=== PATIENT | female | born 1980 | race Caucasian/White ===

== ENCOUNTER 2021-10-15 10:19 | Emergency (ER) | payer SELFPAY ==
[~2021-10-15] VITALS: Ht 172.7 cm; Wt 71.2 kg
--- NOTE | 2021-10-15 10:50 | ED Cardiac General ---
History of Present Illness General Chief Complaint: Cardiac/General Problems Stated Complaint: HIGH BP 158/122 Nursing Triage Note: C/O HTN AT HOME. HAVING PALPATIONS C/P LIGHT HEADED Source: patient Exam Limitations: no limitations (REAGAN ARMENDARIZ STUDENT) History of Present Illness Date Seen by Provider: Oct 15, 2021 Time Seen by Provider: 10:40 Initial Comments Mrs. Patricia is a 40yo female with PMH HTN who is on 3 medications for blood pressure presents to ED today due to heart palpitations. She states that this started about 3 days ago. She feels like she is having palpations more often than she is not. She has never had problems like this before. She was told to come to the ER because she was also having some lightheadedness and she was concerned since this was going on for 3 days. She occasionally also gets sharp pains in the center of her chest for a few moments. She takes her blood pressure medication daily and usually her blood pressure is within range. She has not found anything that makes the pain better. Does not notice worsening of any of the symptoms with exertion, eating, or laying down. She is a 1/2 PPD smoker. No significant family hx. She does use some marijuana. NKDA. She has never had a cardiac workup. PCP is Dr. Andre Rivers. She denies any other symptoms (REAGAN ARMENDARIZ) Allergies and Home Medications Allergies Coded Allergies: No Known Drug Allergies (Verified , 01/07/09) Patient Home Medication List Home Medication List Reviewed: Yes (MARTHA CUNNINGHAM) Review of Systems Review of Systems Constitutional: No chills, No fever EENTM: No Blurred Vision, No Double Vision Respiratory: Denies Cough, Denies Shortness of Air Cardiovascular: Chest Pain (Intermittent); Denies Edema; Lightheadedness, Palpitations Gastrointestinal: Denies Abdominal Pain, Denies Constipated, Denies Diarrhea, Denies Nausea, Denies Vomiting Genitourinary: Denies Hematuria; Other (no dysuria) Musculoskeletal: No joint pain, No joint swelling; other (no leg pain or swelling) Skin: No lesions, No rash Psychiatric/Neurological: Denies Numbness, Denies Tingling (REAGAN ARMENDARIZ STUDENT) Past Korpond-Nlnnow-Gcosxl Hx Past Medical History Reproductive Disorders: No (KALA,REAGAN MED STUDENT) Physical Exam Vital Signs Vital Signs - First Documented 10/15/21 10/15/21 10:23 12:07 Temp 36.3 Pulse 109 Resp 18 B/P (MAP) 174/123 (140) Pulse Ox 100 O2 Delivery Room Air (MARTHA CUNNINGHAM) Vital Signs Capillary Refill : Less Than 3 Seconds (REAGAN ARMENDARIZ MED STUDENT) Height, Weight, BMI Height: '" Weight: lbs. oz. kg; 23.00 BMI Method: General Appearance: No Apparent Distress, WD/WN HEENT: PERRL/EOMI, Pharynx Normal, Moist Mucous Membranes Respiratory: Chest Non Tender, Lungs Clear, Normal Breath Sounds Cardiovascular: No Edema, No Murmur, Normal Peripheral Pulses, Tachycardia Gastrointestinal: Normal Bowel Sounds, Non Tender, Soft Extremity: Non Tender, No Calf Tenderness, No Pedal Edema Neurologic/Psychiatric: Alert, Oriented x3, No Motor/Sensory Deficits Skin: Normal Color, Warm/Dry (REAGAN ARMENDARIZ MED STUDENT) Progress/Results/Core Measures Results/Orders Lab Results Laboratory Tests Test 10/15/21 10:35 Range/Units White Blood Count 5.5 4.3-11.0 10^3/uL Red Blood Count 4.70 3.80-5.11 10^6/uL Hemoglobin 15.2 11.5-16.0 g/dL Hematocrit 43 35-52 % Mean Corpuscular Volume 92 80-99 fL Mean Corpuscular Hemoglobin 32 25-34 pg Mean Corpuscular Hemoglobin Concent 35 32-36 g/dL Red Cell Distribution Width 12.2 10.0-14.5 % Platelet Count 181 130-400 10^3/uL Mean Platelet Volume 10.3 9.0-12.2 fL Immature Granulocyte % (Auto) 1 % Neutrophils (%) (Auto) 59 42-75 % Lymphocytes (%) (Auto) 26 12-44 % Monocytes (%) (Auto) 11 0-12 % Eosinophils (%) (Auto) 3 0-10 % Basophils (%) (Auto) 1 0-10 % Neutrophils # (Auto) 3.2 1.8-7.8 10^3/uL Lymphocytes # (Auto) 1.4 1.0-4.0 10^3/uL Monocytes # (Auto) 0.6 0.0-1.0 10^3/uL Eosinophils # (Auto) 0.2 0.0-0.3 10^3/uL Basophils # (Auto) 0.0 0.0-0.1 10^3/uL Immature Granulocyte # (Auto) 0.0 0.0-0.1 10^3/uL Prothrombin Time 12.2 12.2-14.7 SEC INR Comment 0.9 0.8-1.4 Activated Partial Thromboplast Time 24 24-35 SEC Sodium Level 141 135-145 MMOL/L Potassium Level 3.0 L 3.6-5.0 MMOL/L Chloride Level 99 98-107 MMOL/L Carbon Dioxide Level 27 21-32 MMOL/L Anion Gap 15 H 5-14 MMOL/L Blood Urea Nitrogen 13 7-18 MG/DL Creatinine 0.69 0.60-1.30 MG/DL Estimat Glomerular Filtration Rate 113 BUN/Creatinine Ratio 19 Glucose Level 151 H 70-105 MG/DL Calcium Level 9.6 8.5-10.1 MG/DL Corrected Calcium 9.4 8.5-10.1 MG/DL Magnesium Level 1.5 L 1.6-2.4 MG/DL Total Bilirubin 0.7 0.1-1.0 MG/DL Aspartate Amino Transf (AST/SGOT) 138 H 5-34 U/L Alanine Aminotransferase (ALT/SGPT) 114 H 0-55 U/L Alkaline Phosphatase 85 40-136 U/L Myoglobin 59.2 10.0-92.0 NG/ML Troponin I < 0.028 <0.028 NG/ML B-Type Natriuretic Peptide 23.8 <100.0 PG/ML Total Protein 7.9 6.4-8.2 GM/DL Albumin 4.3 3.2-4.5 GM/DL Amylase Level 39 25-125 U/L Lipase 40 8-78 U/L (MARTHA CUNNINGHAM) My Orders Orders - MARTHA CUNNINGHAM Cbc With Automated Diff (10/15/21 11:04) Magnesium (10/15/21 11:04) Chest 1 View, Ap/Pa Only (10/15/21 11:04) Ekg Tracing (10/15/21 11:04) Comprehensive Metabolic Panel (10/15/21 11:04) Myoglobin Serum (10/15/21 11:04) Protime With Inr (10/15/21 11:04) Partial Thromboplastin Time (10/15/21 11:04) O2 (10/15/21 11:04) Monitor-Rhythm Ecg Trace Only (10/15/21 11:04) Ed Iv/Invasive Line Start (10/15/21 11:04) Lipase (10/15/21 11:04) Amylase (10/15/21 11:04) Bnp Albert (10/15/21 11:04) Troponin I Faulk (10/15/21 11:04) Aspirin Chewable Tablet (Baby Aspirin Ch (10/15/21 11:30) Magnesium Oxide Tablet (Mag Ox Tablet) (10/15/21 11:45) Potassium Chloride (Tablet) (K Dur Table (10/15/21 11:45) Potassium Chloride (Tablet) (K Dur Table (10/15/21 11:48) Magnesium Oxide Tablet (Mag Ox Tablet) (10/15/21 11:48) (MARTHA CUNNINGHAM) Medications Given in ED Current Medications Medications Dose Ordered Sig/Gage Route Start Time Stop Time Status Last Admin Dose Admin Aspirin 324 mg ONCE ONCE PO 10/15/21 11:30 10/15/21 11:31 DC 10/15/21 11:32 324 MG Magnesium Oxide 400 mg ONCE ONCE PO 10/15/21 11:45 10/15/21 11:49 DC 10/15/21 11:49 400 MG Potassium Chloride 40 meq ONCE ONCE PO 10/15/21 11:45 10/15/21 11:49 DC 10/15/21 11:51 40 MEQ (MARTHA CUNNINGHAM) Vital Signs/I&O 10/15/21 10/15/21 10:23 12:07 Temp 36.3 Pulse 109 87 Resp 18 18 B/P (MAP) 174/123 (140) 122/102 Pulse Ox 100 96 O2 Delivery Room Air (MARTHA CUNNINGHAM) Blood Pressure Mean: 140 Comment Sinus rhythm with probable left atrial enlargement, 97 bpm, QRS duration 96 MS, QTc 460 MS. (MARTHA CUNNINGHAM) Departure Communication (PCP) Patient is a 40-year-old female who presents ED with heart palpitations and sharp chest pain with the palpitations. Appears to be intermittent. No worsening pain with exertion. She does have a history of smoking, family cardiac history history of hypertension. Patient does have cardiac risk factors so cardiac work-up was ordered. Initial EKG showed sinus rhythm without evidence of ST depression or elevation. No T wave inversion noted. She was given full aspirin here in the ED. Chest x-ray was unremarkable. No recent travels or surgeries. She is not tachycardic or hypoxic suggesting PE. She denies control. Patient lab work was otherwise unremarkable besides hypokalemia 3.0 and hypomagnesium 1.5. She was given oral supplementation. She is currently on hydrochlorothiazide and amlodipine. Likely secondary to the hydrochlorothiazide. She denies excessive caffeine use, denies any drug use currently. History of drug use 9 years ago. She denies of any fever or URI symptoms. No evidence suggesting pericarditis, myocarditis. She has no chest wall tenderness. She states the pain is secondary to the heart palpitation. She denies history of cardiac work-up. Due to the reassuring lab work and atypical chest pain with palpitations recommend outpatient follow-up. Discussed further evaluation and management of her electrolytes. This would be reasonable candidate for Holter monitor or further cardiac evaluation outpatient Brandyn. This pain progress strongly recommend returning back to ED for further evaluation. Patient is currently chest pain-free. Patient with a heart score of 2. (MARTHA CUNNINGHAM) Impression Primary Impression: Heart palpitations Additional Impressions: Hypertension Hypokalemia Hypomagnesemia Disposition: 01 HOME, SELF-CARE Condition: Stable Departure-Patient Inst. Decision time for Depature: 11:57 (MARTHA CUNNINGHAM) Referrals: [facility] (PCP/Family) Primary Care Physician Patient Instructions: Palpitations Add. Discharge Instructions: Need to follow-up with [facility] for further evaluation of blood pressure. Recommend lab work recheck magnesium and potassium. Further evaluation may require Holter monitor for the heart palpitations. If any worsening symptoms to return back to ED for further evaluation. All discharge instructions reviewed with patient and/or family. Voiced understanding. REAGAN ARMENDARIZ MED STUDENT Oct 15, 2021 10:50 MARTHA CUNNINGHAM Oct 15, 2021 11:06
[2021-10-15 11:10] LABS: BASOPHILS % (AUTO) 1 % (0-10); EOSINOPHILS # (AUTO) 0.2 10^3/uL (0.0-0.3); EOSINOPHILS % (AUTO) 3 % (0-10); HEMATOCRIT 43 % (35-52); HEMOGLOBIN 15.2 g/dL (11.5-16.0); LYMPHOCYTES # (AUTO) 1.4 10^3/uL (1.0-4.0); LYMPHOCYTES % (AUTO) 26 % (12-44); MEAN CORPUSCULAR HEMOGLOBIN 32 pg (25-34); MEAN CORPUSCULAR HGB CONC 35 g/dL (32-36); MEAN CORPUSCULAR VOLUME 92 fL (80-99); MEAN PLATELET VOLUME 10.3 fL (9.0-12.2); MONOCYTES # (AUTO) 0.6 10^3/uL (0.0-1.0); MONOCYTES % (AUTO) 11 % (0-12); NEUTROPHILS # (AUTO) 3.2 10^3/uL (1.8-7.8); NEUTROPHILS % (AUTO) 59 % (42-75); PLATELET COUNT 181 10^3/uL (130-400); WHITE BLOOD COUNT 5.5 10^3/uL (4.3-11.0)
[2021-10-15 11:17] LABS: ALBUMIN 4.3 GM/DL (3.2-4.5)
[2021-10-15 11:19] LABS: CALCIUM 9.6 MG/DL (8.5-10.1)
[2021-10-15 11:20] LABS: INR 0.9 (0.8-1.4); PROTHROMBIN TIME PATIENT 12.2 SEC (12.2-14.7); TOTAL PROTEIN 7.9 GM/DL (6.4-8.2)
[2021-10-15 11:22] LABS: BILIRUBIN,TOTAL 0.7 MG/DL (0.1-1.0)
[2021-10-15 11:23] LABS: CREATININE SERUM 0.69 MG/DL (0.60-1.30)
[2021-10-15 11:27] LABS: MAGNESIUM 1.5 MG/DL (1.6-2.4)
[2021-10-15] MEDS ORDERED: ASPIRIN 81 MG CHEW (CHILDREN'S ASA) PO ONE (11:30)
[2021-10-15] MEDS ORDERED: MAGNESIUM OXIDE (MAG-OX)400 MG TAB PO ONE (11:45)
[2021-10-15] MEDS ORDERED: KCL 20 MEQ TAB (K-DUR) PO ONE ×2 (11:45→11:48)
[2021-10-15] MEDS ORDERED: MAGNESIUM OXIDE (MAG-OX)400 MG TAB ONE (11:48)
--- NOTE | 2021-10-15 11:48 | Diagnostic Imaging Report ---
CLINICAL INDICATION: Patient with hypertension and palpitations. Patient complains of lightheadedness. EXAM: Portable chest x-ray upright view. COMPARISON: Chest x-ray dated 07/23/2014. FINDINGS: Lungs/pleura: Lungs are clear. There is no pneumothorax. There is no pleural effusion. Mediastinum: Unremarkable. Pulmonary vasculature: Unremarkable. Heart: Unremarkable. Bones/extrathoracic soft tissue: Unremarkable. IMPRESSION: There is no radiographic evidence of acute cardiopulmonary process. Dictated by: Dictated on workstation # [id number]
[2021-10-15 12:07] VITALS: BP 122/102
== END 2021-10-15 12:07 | disposition home or self-care (01) ==
LOC: EDUNIT# 10:19 → ER 10:21
DX: R00.2 Palpitations (principal); I10 Essential (primary) hypertension; E87.6 Hypokalemia; E83.42 Hypomagnesemia; F17.210 Nicotine dependence, cigarettes, uncomplicated
CPT/HCPCS: 36415; 71045; 80053; 82150; 83690; 83735; 83874; 83880; 84484; 85025; 85610; 85730; 93041

== ENCOUNTER 2022-12-23 03:42 | Inpatient (IN) | payer SELFPAY ==
[~2022-12-23] VITALS: Ht 172.7 cm; Wt 65.8 kg
--- NOTE | 2022-12-23 03:57 | ED Psychosocial ---
General Chief Complaint: Detox Stated Complaint: WANTS DETOX/SEIZURE Source: patient Exam Limitations: no limitations (GAMALIEL GIBBS MD) History of Present Illness Date Seen by Provider: Dec 23, 2022 Time Seen by Provider: 03:57 Initial Comments Patient is a 42-year-old female who presents to the emergency room with a chief complaint of concern for 2 seizures in the last 24 hours. She states she has been drinking 1 to 2 pints of vodka daily for the last 6 to 7 months. She states after the seizures in the last 24 hours she got scared and wanted to come in to have "medical detox". She states she had a fall last night sustaining some abrasions to her left hand. She states she thinks she has been hallucinating and found herself wandering around in her front yard last night. She was laying in her daughter's bed this morning and her daughter woke her up saying that she was having a seizure. Patient states that she has been confused and "out of it". She denies any other injuries other than the abrasions to the left hand. She is a smoker. She takes medication for high blood pressure. Feels anxious currently. Has "shakes". She states she has had nausea and vomiting for the last 4 days and cannot even hardly keep down alcohol. No recent illnesses. Only prior surgery was a hysterectomy. Timing/Duration: just prior to arrival Severity: moderate Associated Symptoms: anxiety, impaired concentration (GAMALIEL GIBBS MD) Allergies and Home Medications Allergies Coded Allergies: No Known Drug Allergies (Verified , 01/07/09) Patient Home Medication List Home Medication List Reviewed: Yes (GAMALIEL GIBBS MD) Amlodipine Besylate (Amlodipine Besylate) 10 Mg Tablet, 10 MG PO DAILY, (Reported) Entered as Reported by: BRADLEY MYERS on 12/23/22 100 Last Action: Reviewed Buprenorphine HCl/Naloxone HCl (Buprenorphin-Naloxon 8-2 mg Sl) 8 Mg-2 Mg Ta b.subl, 1 EACH SL TID, (Reported) Entered as Reported by: BRADLEY MYERS on 12/23/22 100 Last Action: Reviewed Hydrochlorothiazide (Hydrochlorothiazide) 25 Mg Tablet, 25 MG PO DAILY, (Reported) Entered as Reported by: BRADLEY MYERS on 12/23/221002 Last Action: Reviewed Metoprolol Succinate (Metoprolol Succinate) 25 Mg Tab.er.24h, 25 MG PO DAILY, (Reported) Entered as Reported by: BRADLEY MYERS on 12/23/221002 Last Action: Reviewed Review of Systems Constitutional: see HPI EENTM: no symptoms reported Respiratory: no symptoms reported Cardiovascular: no symptoms reported Gastrointestinal: nausea, vomiting Genitourinary: no symptoms reported Musculoskeletal: no symptoms reported Skin: other (abrasions left hand) Psychiatric/Neurological: Anxiety, Emotional Problems, Seizure (GAMALIEL GIBBS MD) All Other Systems Reviewed Negative Unless Noted: Yes (GAMALIEL GIBBS MD) Past Tnfubnv-Tvwufl-Twuwmy Hx Immunizations Up To Date First/Initial COVID19 Vaccinat: AUG 2021 (GAMALIEL GBIBS MD) Past Medical History Reproductive Disorders: No (GAMALIEL GIBBS MD) Physical Exam Vital Signs - First Documented 12/23/22 03:49 Temp 36.3 Pulse 127 Resp 18 B/P (MAP) 93/79 (84) Pulse Ox 98 O2 Delivery Room Air Capillary Refill : Height, Weight, BMI Height: '" Weight: lbs. oz. kg; 23.00 BMI Method: General Appearance: mild distress (anxious) HEENT: PERRL/EOMI, scleral icterus (R), scleral icterus (L) Neck: full range of motion Respiratory: lungs clear, normal breath sounds, no respiratory distress, no accessory muscle use Cardiovascular: regular rate, rhythm, tachycardia Gastrointestinal: normal bowel sounds, non tender, soft Extremities: normal range of motion, normal inspection, no pedal edema, no calf tenderness, normal capillary refill Neurologic/Psychiatric: no motor/sensory deficits, alert, oriented x 3, other (anxious; resting tremor) Appearance/Memory: appropriate appearance, appropriate insight, no memory impairment Behavior/Eye Contact: cooperative, good eye contact, normal speech Thoughts/Hallucinations: normal thought pattern, no apparent hallucination Skin: normal color, warm/dry, other (2 superficial abrasions dorsum of left hand) (GAMALIEL GIBBS MD) Procedures/Interventions Reason for Intubation: interference with medical care; AMS Date of ETT Placement: Dec 23, 2022 Time of ETT Placement: 05:48 Intubation Method: orotracheal Tube Size: 7 Medications: Etomidate, Rocuronium Positive End Tide CO2: Yes Breath Sounds after Intubation: bilateral-equal Intubation Complications: no complications Post Intubation Xray: Yes (GAMALIEL GIBBS MD) Progress/Results/Core Measures Results/Orders Lab Results Laboratory Tests Test 12/23/22 04:30 12/23/22 07:10 Range/Units White Blood Count 3.6 L 4.3-11.0 10^3/uL Red Blood Count 3.85 3.80-5.11 10^6/uL Hemoglobin 13.9 11.5-16.0 g/dL Hematocrit 37 35-52 % Mean Corpuscular Volume 97 80-99 fL Mean Corpuscular Hemoglobin 36 H 25-34 pg Mean Corpuscular Hemoglobin Concent 37 H 32-36 g/dL Red Cell Distribution Width 12.5 10.0-14.5 % Platelet Count 73 L 130-400 10^3/uL Mean Platelet Volume 11.5 9.0-12.2 fL Immature Granulocyte % (Auto) 1 % Neutrophils (%) (Auto) 74 42-75 % Lymphocytes (%) (Auto) 17 12-44 % Monocytes (%) (Auto) 8 0-12 % Eosinophils (%) (Auto) 0 0-10 % Basophils (%) (Auto) 0 0-10 % Neutrophils # (Auto) 2.7 1.8-7.8 10^3/uL Lymphocytes # (Auto) 0.6 L 1.0-4.0 10^3/uL Monocytes # (Auto) 0.3 0.0-1.0 10^3/uL Eosinophils # (Auto) 0.0 0.0-0.3 10^3/uL Basophils # (Auto) 0.0 0.0-0.1 10^3/uL Immature Granulocyte # (Auto) 0.0 0.0-0.1 10^3/uL Percent Immature Platelet Fraction 11.8 H 0.0-7.6 % Sodium Level 128 L 135-145 MMOL/L Potassium Level 2.0 *L 3.6-5.0 MMOL/L Chloride Level 83 L 98-107 MMOL/L Carbon Dioxide Level 27 21-32 MMOL/L Anion Gap 18 H 5-14 MMOL/L Blood Urea Nitrogen 8 7-18 MG/DL Creatinine 0.75 0.60-1.30 MG/DL Estimat Glomerular Filtration Rate 103 BUN/Creatinine Ratio 11 Glucose Level 133 H 70-105 MG/DL Calcium Level 9.2 8.5-10.1 MG/DL Corrected Calcium 9.2 8.5-10.1 MG/DL Phosphorus Level 1.9 L 2.3-4.7 MG/DL Magnesium Level 0.7 *L 1.6-2.4 MG/DL Total Bilirubin 3.1 H 0.1-1.0 MG/DL Aspartate Amino Transf (AST/SGOT) 444 H 5-34 U/L Alanine Aminotransferase (ALT/SGPT) 164 H 0-55 U/L Alkaline Phosphatase 128 40-136 U/L Total Creatine Kinase 577 H 29-168 U/L Total Protein 7.8 6.4-8.2 GM/DL Albumin 4.0 3.2-4.5 GM/DL Triglycerides Level 166 H <150 MG/DL Salicylates Level < 5.0 L 5.0-20.0 MG/DL Acetaminophen Level < 10 L 10-30 UG/ML Serum Alcohol < 10 <10 MG/DL My Orders Orders - GAMALIEL GIBBS MD Ua Culture If Indicated (12/23/22 04:09) Cbc With Automated Diff (12/23/22 04:09) Comprehensive Metabolic Panel (12/23/22 04:09) Alcohol (12/23/22 04:09) Drug Screen Stat (Urine) (12/23/22 04:09) Acetaminophen (12/23/22 04:09) Salicylate (12/23/22 04:09) Ekg Tracing (12/23/22 04:09) Ed Iv/Invasive Line Start (12/23/22 04:09) Monitor-Rhythm Ecg Trace Only (12/23/22 04:09) Ed Iv/Invasive Line Start (12/23/22 04:09) Lactated Ringers (Lr 1000 Ml Iv Solution (12/23/22 04:15) Ondansetron Injection (Zofran Injectio (12/23/22 04:15) Lorazepam Injection (Ativan Injection) (12/23/22 04:09) Lactated Ringers (Lr 1000 Ml Iv Solution (12/23/22 04:40) Lorazepam Injection (Ativan Injection) (12/23/22 04:40) Ondansetron Injection (Zofran Injectio (12/23/22 04:41) Creatine Kinase (12/23/22 05:09) Potassium Cl 10meq/50ml Ivpb (Kcl 10 Meq (12/23/22 05:15) Magnesium (12/23/22 05:09) Phosphorus (12/23/22 05:09) Ct Head Wo (12/23/22 05:10) Propofol Drip (Icu) (Diprivan Drip (Icu) (12/23/22 05:15) Triglycerides (12/23/22 05:10) Chest 1 View, Ap/Pa Only (12/23/22 05:16) Lorazepam Injection (Ativan Injection) (12/23/22 05:25) Lorazepam Injection (Ativan Injection) (12/23/22 05:28) Magnesium 1 Gm/100 Ml Ivpb (Magnesium [place] (12/23/22 07:00) Midazolam Injection (Versed Injection) (12/23/22 07:15) Dexmedetomidine 250 Ml Drip (Precedex Dr (12/23/22 07:30) Dexmedetomidine Injection (Precedex Inje (12/23/22 07:20) Medications Given in ED Current Medications Medications Dose Ordered Sig/Gage Route Start Time Stop Time Status Last Admin Dose Admin Magnesium Sulfate/ Dextrose 100 ml @ 100 mls/hr ONCE ONCE IV 12/23/22 07:00 12/23/22 07:59 12/23/22 07:25 100 MLS/HR Vital Signs/I&O 12/23/22 12/23/22 03:49 03:49 Temp 36.3 Pulse 127 Resp 18 B/P (MAP) 93/79 (84) Pulse Ox 98 O2 Delivery Room Air Room Air (GAMALIEL GIBBS MD) Progress Progress Note : Time: 05:12 Progress Note Ludy, RN called for "help" at approx 0445 as she was going in to start fluids and give ativan IV. Patient very disoriented, had pulled her IV and attempting to get up and walk around the room, hitting at the wall. Ataxic and stumbling in the room. Refusing to sit. Became increasingly aggressive and agitated, cursing at staff, attempting to hit and bite staff. This is a 180deg change from when I first evaluated her. Ludy RN did not witness any seizure-like activity when walking into the room. Multiple attempts to orient patient failed. Patient was ultimately placed in leather restraints for her safety and staff safety. Once she was in irma she seemed to "come around" and was more oriented, answering questions. Was profusely diaphoretic. During this lab called to notify of critical potassium of 2.0. Discussions with staff regarding need for treatment and patient ongoing safety. Will electively intubate to facilitate care. Patient's family member updated (daughter). Labs reviewed - Mag very low at 0.7. not anemic. WBC slightly low at 3. LFT's and total bili elevated. aspirin, acetaminophen and etoh neg. UDS pending. Post intubation CXR pending. EKG sinus tach. CT Head pending. Suspect etoh withdrawal delirium/DT's (GAMALIEL GIBBS MD) Progress Note : Time: 09:08 Progress Note Patient was being supervised after admission was arranged by Dr. Gibbs. Nursing staff alerted me that patient was becoming agitated and moving about despite sedation with propofol and Precedex. Since she is suspected of having severe alcohol withdrawal, Ativan 2 mg IV was ordered. This seemed to improve her agitation and movements. Patient is being transferred to the ICU. (STEPHY MARTINEZ MD) Initial ECG Impression Date: Dec 23, 2022 Initial ECG Impression Time: 04:22 Initial ECG Rate: 100 Initial ECG Rhythm: S.Tach Initial ECG Intervals: Normal Initial ECG Impression: Nonspecific Changes (GAMALIEL GIBBS MD) Critical Care Note Critical Care Start Time: 05:00 (GAMALIEL GIBBS MD) Departure Communication (Admissions) Time/Spoke to Admitting Phy: 05:[address] Kali appiah for [facility] Hospitalist; will do que'd orders Time/Spoke to Consulting Phy: 07:26 Discussed with eICU (GAMALIEL GIBBS MD) Impression Primary Impression: Hypokalemia Additional Impressions: Hypomagnesemia Delirium tremens Disposition: ADMITTED INPATIENT Condition: Critical Admissions Decision to Admit Reason: Admit from ER (General) Decision to Admit/Date: Dec 23, 2022 Time/Decision to Admit Time: 05:17 (GAMALIEL GIBBS MD) Departure-Patient Inst. Referrals: [facility] (PCP/Family) Primary Care Physician Copy Copies To 1: PARKER OLEARY KATHRYN M MD Dec 23, 2022 03:57 STEPHY MARTINEZ MD Dec 23, 2022 09:10
[2022-12-23] MEDS ORDERED: LORazepam INJ 2 MG/ML (ATIVAN) VIAL IVP STA ×2 (04:09→05:25)
[2022-12-23] MEDS ORDERED: LORazepam INJ 2 MG/ML (ATIVAN) VIAL ONE ×3 (04:40→08:20)
[2022-12-23] MEDS ORDERED: LACTATED RINGERS 1,000 ML IV ONE (04:40)
[2022-12-23 04:41] LABS: BASOPHILS % (AUTO) 0 % (0-10); HEMOGLOBIN 13.9 g/dL (11.5-16.0); LYMPHOCYTES # (AUTO) 0.6 10^3/uL (1.0-4.0); PLATELET COUNT 73 10^3/uL (130-400)
[2022-12-23] MEDS ORDERED: ONDANSETRON 4 MG/2 ML (SDV) Z0FRAN ONE (04:41)
[2022-12-23 04:42] LABS: EOSINOPHILS % (AUTO) 0 % (0-10); HEMATOCRIT 37 % (35-52); LYMPHOCYTES % (AUTO) 17 % (12-44); MEAN CORPUSCULAR HEMOGLOBIN 36 pg (25-34); MEAN CORPUSCULAR HGB CONC 37 g/dL (32-36); MEAN CORPUSCULAR VOLUME 97 fL (80-99); MEAN PLATELET VOLUME 11.5 fL (9.0-12.2); MONOCYTES # (AUTO) 0.3 10^3/uL (0.0-1.0); MONOCYTES % (AUTO) 8 % (0-12); NEUTROPHILS # (AUTO) 2.7 10^3/uL (1.8-7.8); NEUTROPHILS % (AUTO) 74 % (42-75); WHITE BLOOD COUNT 3.6 10^3/uL (4.3-11.0)
[2022-12-23] MEDS: ONDANSETRON 4 MG/2 ML (SDV) Z0FRAN IVP ONE ×2 (04:46→07:26)
[2022-12-23] MEDS: LACTATED RINGERS 1,000 ML IV SCH ×2 (04:46→05:47)
[2022-12-23 04:49] LABS: CHLORIDE 83 MMOL/L (98-107); SODIUM 128 MMOL/L (135-145)
[2022-12-23 04:51] LABS: CALCIUM 9.2 MG/DL (8.5-10.1)
[2022-12-23 04:52] LABS: GLUCOSE 133 MG/DL (70-105); TOTAL PROTEIN 7.8 GM/DL (6.4-8.2)
[2022-12-23 04:53] LABS: CARBON DIOXIDE 27 MMOL/L (21-32)
[2022-12-23 04:54] LABS: BILIRUBIN,TOTAL 3.1 MG/DL (0.1-1.0)
[2022-12-23 04:56] LABS: ALKALINE PHOSPHATASE 128 U/L (40-136); CREATININE SERUM 0.75 MG/DL (0.60-1.30); GFR ESTIMATED 103
[2022-12-23 04:57] LABS: BUN/CREATININE RATIO 11
[2022-12-23 04:59] LABS: ALANINE AMINOTRANSFERASE 164 U/L (0-55); SALICYLATE < 5.0 MG/DL (5.0-20.0)
[2022-12-23] MEDS ORDERED: LORazepam INJ 2 MG/ML (ATIVAN) VIAL IM ONE (04:59)
[2022-12-23 05:01] LABS: ACETAMINOPHEN < 10 UG/ML (10-30)
[2022-12-23] MEDS ORDERED: PROPOFOL DRIP (ICU) 100 ML IV SCH ×2 (05:15→09:30)
[2022-12-23 05:29] LABS: PHOSPHORUS 1.9 MG/DL (2.3-4.7)
[2022-12-23 05:34] LABS: MAGNESIUM 0.7 MG/DL (1.6-2.4)
[2022-12-23] MEDS: POTASSIUM CL 10MEQ/50ML IVPB 50 ML IV SCH ×11 (06:41→23:06)
--- NOTE | 2022-12-23 06:45 | Diagnostic Imaging Report ---
PROCEDURE: CT head without contrast. TECHNIQUE: Multiple contiguous axial images were obtained through the brain without the use of intravenous contrast. Auto Exposure Controls were utilized during the CT exam to meet ALARA standards for radiation dose reduction. INDICATION: Acute altered mental status and ataxia. CT HEAD: CT images of the head were obtained. FINDINGS: Ventricles and sulci are within normal limits for size. There is no intracranial hemorrhage identified. There is no abnormal mass effect or shift of midline structures. There is mild mural thickening within the maxillary sinuses with small amount of fluid on the left. There is opacification of the right sphenoid sinus. IMPRESSION: No acute intracranial abnormality is detected although there is mild bilateral maxillary sinus and extensive right sphenoid sinus disease. Dictated by: Dictated on workstation # [id number]
--- NOTE | 2022-12-23 06:48 | Diagnostic Imaging Report ---
INDICATION: Respiratory failure Single AP view of the chest is obtained with comparison made to study of 10/15/2021. There has been placement of enteric tube tip at the level of the thoracic inlet. Nasogastric tube passes below the diaphragm. Heart size and pulmonary vascularity are within normal limits. Lungs appear clear and well expanded. There is no pneumothorax. IMPRESSION: No evidence of acute abnormality or complication post intubation. Dictated by: Dictated on workstation # [id number]
[2022-12-23] MEDS ORDERED: MAGNESIUM 1 GM/100 ML IVPB 100 ML IV ONE (07:00)
[2022-12-23 07:13] LABS: BILIRUBIN,URINE NEGATIVE (NEGATIVE); CLARITY,URINE CLOUDY; COLOR,URINE YELLOW; GLUCOSE, URINE (UA) TRACE (NEGATIVE); KETONES,URINE NEGATIVE (NEGATIVE); LEUKOCYTE ESTERASE ,URINE NEGATIVE (NEGATIVE); NITRITE,URINE NEGATIVE (NEGATIVE); PH,URINE 7.5 (5-9); PROTEIN,URINE 1+ (NEGATIVE)
[2022-12-23] MEDS ORDERED: MIDAZOLAM 5 MG/5 ML (VERSED) VIAL IVP ONE ×2 (07:15→09:00)
[2022-12-23 07:38] LABS: BACTERIA,URINE NEGATIVE /HPF; RBC,URINE 0-2 /HPF; SQUAMOUS EPITHELIAL CELL,UR RARE /HPF
[2022-12-23] MEDS: DexMEDEtomidine 250 ML DRIP 250 ML IV SCH (07:40)
[2022-12-23 08:07] LABS: AMPHETAMINE SCREEN, URINE NEGATIVE (NEGATIVE); BARBITURATE SCREEN URINE NEGATIVE (NEGATIVE); BENZODIAZEPINES SCREEN URINE NEGATIVE (NEGATIVE); CANNABINOID SCREEN, URINE NEGATIVE (NEGATIVE); COCAINE SCREEN URINE NEGATIVE (NEGATIVE); METHADONE STAT NEGATIVE (NEGATIVE); OPIATE SCREEN URINE NEGATIVE (NEGATIVE); OXYCODONE STAT NEGATIVE (NEGATIVE); PROPOXYPHENE STAT NEGATIVE (NEGATIVE); TRICYCLIC ANTIDEPRESSANTS SCRE NEGATIVE (NEGATIVE)
[2022-12-23] MEDS ORDERED: LORazepam INJ 2 MG/ML (ATIVAN) VIAL IVP ONE (08:30)
--- NOTE | 2022-12-23 09:26 | History & Physical ---
HPI History of Present Illness: History per ER physician, patient already intubated and sedated at time of my exam and no family at bedside. 42 yo female presented to ER with complaint of alcohol withdrawal with seizure at home, reportedly she was sleeping and her daughter woke her up and told her she had a seizure. On arrival to the ER she was alert and oriented and calm, but she became extremely combative and agitated and ultimately was intubated for protection. Source: RN/MD Exam Limitations: clinical condition Date seen by provider: Dec 23, 2022 Time Seen by Provider: 09:20 Attending Physician [place]/[facility] PCP Admitting Physician: Bradley Bass MD Attending Physician: Bradley Bass MD Consult Date of Admission Dec 23, 2022 at 09:00 Home Medications Home Medications Reviewed patient Home Medication Reconciliation performed by pharmacy medication reconciliations nail technician teacher and/or nursing. Patients Allergies have been reviewed. Allergies Coded Allergies: No Known Drug Allergies (Verified , 01/07/09) [id number] Hx Patient Social History Smoking Status: Current Everyday Smoker Alcohol Use?: Yes Tobacco type used: Cigarettes Immunizations Up To Date Tetanus Booster (TDap): Less than 5yrs (12/08/2021) Influenza Vaccine Up-to-Date: No; Not Current (2018) First/Initial COVID19 Vaccinat: 07/07/2021 Second COVID19 Vaccination Darion: none Past Medical History PMHx: HTN Opioid use disorder Alcohol use disorder Hep C treated in 2014 and viral load undetectable 05/2018 SurgHx: Hysterectomy Family Medical History Other Significan Family Hx: Unable to obtain Review of Systems ([facility]) Constitutional: other (unable to obtain) Reviewed Test Results Reviewed Test Results Lab Laboratory Tests Test 12/23/22 04:30 12/23/22 07:10 Range/Units White Blood Count 3.6 L 4.3-11.0 10^3/uL Red Blood Count 3.85 3.80-5.11 10^6/uL Hemoglobin 13.9 11.5-16.0 g/dL Hematocrit 37 35-52 % Mean Corpuscular Volume 97 80-99 fL Mean Corpuscular Hemoglobin 36 H 25-34 pg Mean Corpuscular Hemoglobin Concent 37 H 32-36 g/dL Red Cell Distribution Width 12.5 10.0-14.5 % Platelet Count 73 L 130-400 10^3/uL Mean Platelet Volume 11.5 9.0-12.2 fL Immature Granulocyte % (Auto) 1 % Neutrophils (%) (Auto) 74 42-75 % Lymphocytes (%) (Auto) 17 12-44 % Monocytes (%) (Auto) 8 0-12 % Eosinophils (%) (Auto) 0 0-10 % Basophils (%) (Auto) 0 0-10 % Neutrophils # (Auto) 2.7 1.8-7.8 10^3/uL Lymphocytes # (Auto) 0.6 L 1.0-4.0 10^3/uL Monocytes # (Auto) 0.3 0.0-1.0 10^3/uL Eosinophils # (Auto) 0.0 0.0-0.3 10^3/uL Basophils # (Auto) 0.0 0.0-0.1 10^3/uL Immature Granulocyte # (Auto) 0.0 0.0-0.1 10^3/uL Percent Immature Platelet Fraction 11.8 H 0.0-7.6 % Sodium Level 128 L 135-145 MMOL/L Potassium Level 2.0 *L 3.6-5.0 MMOL/L Chloride Level 83 L 98-107 MMOL/L Carbon Dioxide Level 27 21-32 MMOL/L Anion Gap 18 H 5-14 MMOL/L Blood Urea Nitrogen 8 7-18 MG/DL Creatinine 0.75 0.60-1.30 MG/DL Estimat Glomerular Filtration Rate 103 BUN/Creatinine Ratio 11 Glucose Level 133 H 70-105 MG/DL Calcium Level 9.2 8.5-10.1 MG/DL Corrected Calcium 9.2 8.5-10.1 MG/DL Phosphorus Level 1.9 L 2.3-4.7 MG/DL Magnesium Level 0.7 *L 1.6-2.4 MG/DL Total Bilirubin 3.1 H 0.1-1.0 MG/DL Aspartate Amino Transf (AST/SGOT) 444 H 5-34 U/L Alanine Aminotransferase (ALT/SGPT) 164 H 0-55 U/L Alkaline Phosphatase 128 40-136 U/L Total Creatine Kinase 577 H 29-168 U/L Total Protein 7.8 6.4-8.2 GM/DL Albumin 4.0 3.2-4.5 GM/DL Triglycerides Level 166 H <150 MG/DL Salicylates Level < 5.0 L 5.0-20.0 MG/DL Acetaminophen Level < 10 L 10-30 UG/ML Serum Alcohol < 10 <10 MG/DL Urine Color YELLOW Urine Clarity CLOUDY Urine pH 7.5 5-9 Urine Specific [place] 1.010 L 1.016-1.022 Urine Protein 1+ H NEGATIVE Urine Glucose (UA) TRACE H NEGATIVE Urine Ketones NEGATIVE NEGATIVE Urine Nitrite NEGATIVE NEGATIVE Urine Bilirubin NEGATIVE NEGATIVE Urine Urobilinogen >=8.0 < = 1.0 MG/DL Urine Leukocyte Esterase NEGATIVE NEGATIVE Urine RBC (Auto) 3+ H NEGATIVE Urine RBC 0-2 /HPF Urine WBC NONE /HPF Urine Squamous Epithelial Cells RARE /HPF Urine Crystals NONE /LPF Urine Bacteria NEGATIVE /HPF Urine Casts NONE /LPF Urine Mucus NEGATIVE /LPF Urine Culture Indicated NO Urine Opiates Screen NEGATIVE NEGATIVE Urine Oxycodone Screen NEGATIVE NEGATIVE Urine Methadone Screen NEGATIVE NEGATIVE Urine Propoxyphene Screen NEGATIVE NEGATIVE Urine Barbiturates Screen NEGATIVE NEGATIVE Ur Tricyclic Antidepressants Screen NEGATIVE NEGATIVE Urine Phencyclidine Screen NEGATIVE NEGATIVE Urine Amphetamines Screen NEGATIVE NEGATIVE Urine Methamphetamines Screen NEGATIVE NEGATIVE Urine Benzodiazepines Screen NEGATIVE NEGATIVE Urine Cocaine Screen NEGATIVE NEGATIVE Urine Cannabinoids Screen NEGATIVE NEGATIVE Radiology CT head 12/23/22: IMPRESSION: No acute intracranial abnormality is detected although there is mild bilateral maxillary sinus and extensive right sphenoid sinus disease. CXR 12/23/22: IMPRESSION: No evidence of acute abnormality or complication post intubation. Physical Exam-([facility]) Physical Exam Vital Signs VS - Last 72 Hours, by Label 12/23/22 12/23/22 12/23/22 12/23/22 03:49 03:49 05:00 05:15 Temp 36.3 Pulse 127 Resp 18 20 20 B/P (MAP) 93/79 (84) Pulse Ox 98 O2 Delivery Room Air Room Air 12/23/22 12/23/22 12/23/22 05:30 05:45 07:40 Pulse 89 Resp 18 16 B/P (MAP) 97/60 Capillary Refill : Less Than 3 Seconds General Appearance: other (intubated, sedated) Respiratory: lungs clear, normal breath sounds Cardiovascular: regular rate, rhythm, no murmur Peripheral Pulses: 2+ Dorsalis Pedis (R), 2+ Left Dors-Pedis (L) Gastrointestinal: normal bowel sounds, soft Extremities: no pedal edema Skin: normal color, warm/dry Assessment/Plan Assessment/Plan Admission Status: Inpatient Order (span 2 midnights) Reason for Inpatient Admission: Severe alcohol withdrawal requiring intubation (1) Delirium tremens Status: Acute Assessment & Plan: CT head without acute findings. Intubated, sedated on dexmedetomidine, alcohol withdrawal protocol with CIWA and IV lorazepam. (2) Elevated liver enzymes Status: Chronic Assessment & Plan: Chart review shows LFTs minimally elevated (AST/ALT in the 40s) 10/2021, so significantly above previous baseline. Consider acute alcoholic hepatitis. Check PT/INR, PTT and hepatitis panel as well as liver ultrasound with doppler to eval for other causes. (3) Alcohol withdrawal delirium Status: Acute (4) Hypokalemia Status: Acute Assessment & Plan: Marked, replacing with 60 mEq initially, recheck after and if near normal, will use protocol replacement. (5) Hypomagnesemia Status: Acute Assessment & Plan: Replaced per ER, recheck. (6) Hypophosphatemia Status: Acute Assessment & Plan: Replace and recheck. (7) Thrombocytopenia Status: Acute Assessment & Plan: Last check at clinic 10/2021 CBC was normal. Suspect due to alcohol use/liver failure. Monitor closely. (8) Leukopenia Status: Acute Assessment & Plan: Previously normal a year ago. Suspect due to liver disease, monitor. (9) Alcohol use disorder Status: Chronic (10) Opioid use disorder Status: Chronic Assessment & Plan: Per clinic chart, on Suboxone prescribed by Dr. Godoy, however, unable to confirm if still taking, was last seen at [facility] October 2021. (11) Hypertension Status: Chronic Assessment & Plan: Currently borderline hypotensive after intubation, hold home medications, monitor. (12) Bipolar disorder Status: Chronic (13) History of hepatitis C Status: Chronic Assessment & Plan: Per clinic records, treated in 2014 with good response, negative viral PCR in 2018. Check acute hepatitis panel given acute hepatitis, but Hep C antibody anticipated to be positive, if remainder of acute testing negative, check Hep C PCR. (14) DVT prophylaxis Status: Acute Assessment & Plan: Enoxaparin- monitor closely with low platelets BRADLEY BASS MD Dec 23, 2022 09:26
[2022-12-23] MEDS ORDERED: ONDANSETRON 4 MG/2 ML (SDV) Z0FRAN IV PRN (09:30)
[2022-12-23] MEDS ORDERED: LORazepam INJ 2 MG/ML (ATIVAN) VIAL IM/IV PRN (09:30)
[2022-12-23] MEDS ORDERED: NS IV 500 ML 500 ML IV PRN (09:30)
[2022-12-23] MEDS ORDERED: 1/2 NS IV SOLUTION 1,000 ML IV PRN (09:30)
[2022-12-23] MEDS: ENOXAPARIN 40 MG/0.4 ML (LOVENOX) SYR SC SCH (09:49)
[2022-12-23] MEDS: LORazepam INJ 2 MG/ML (ATIVAN) VIAL IV PRN ×8 (09:52→21:48)
[2022-12-23] MEDS ORDERED: LACTATED RINGERS 1,000 ML IV SCH (10:00)
[2022-12-23] MEDS ORDERED: POTASSIUM PHOSPHATE INJ 30 MM in NS (IVPB) 250 ML IV ONE ×2 (10:00→19:00)
[2022-12-23] MEDS ORDERED: HYDR25TA4 PO (10:03)
[2022-12-23] MEDS ORDERED: AMLO-251 PO (10:03)
[2022-12-23] MEDS ORDERED: BUPR1TAB45 SL (10:03)
[2022-12-23] MEDS ORDERED: MTP25TSR PO (10:03)
--- NOTE | 2022-12-23 10:40 | Tele-ICU Progress Note ---
Subjective Date Seen by a Provider: Dec 23, 2022 Time Seen by a Provider: 10:08 Subjective/Events-last exam (Tele-ICU Physician , consultation as per request of PCP Service provided via interactive audio and video telecommunications E-CARE system to a patient admitted to ICU bed in [facility]. Available chart/ vitals / labs / Images reviewed H&P is from ER notes Patient's information available about PMH, Shx, Fhx allergy reviewed inEMR. ROS as per chart and RN report Afebrile, Vital signs stable Respiratory - AC/VC 20/450/60/5 I/O = pos Drips: Propofol, precedex, LR Pressors- none Hospital course: 42 y/o F with no significant PMHx who presented to ED with c/o heavy alcohol use concerned about possible seizure at home. In ER noted to have progressively worsening agitation and was combative. Ultimately required sedation with propofol and precedex and as a result intubated for airway prot ection. Acute respiratory failure 2/2 AMS requiring airway protection -Intubated and sedated. PRVC 400/16/40/5 -Will cont to wean vent as tolerated. Alcohol withdrawal: -Intubated for severe agitation -Will check baseline ammonia. Unclear if patient has underlying liver disease -Will switch propofol to fentanyl/versed given elevated TG -CIWA scale Hypokalemia: -KCL ordered -Recheck K after infusion Transaminitis: -F/u RUQ, no known diagnosis of liver disease Lines : periph , (Central Line Necessity Reviewed) Antony: + Nutrition: NPO VTE Prophylaxis: sally 1`30 bid Stress Ulcer Prophylaxis: Protonix Plans in collaboration with bedside consultants and IM MDs. Discussed with RN to reach out if any questions or concerns A total of 30 minutes of critical care time was devoted to this patient today, required to treat and/or prevent further deterioration of critical care condition ( as above ) I am remotely monitoring this patient from another state. I am unable to do the bedside exam, and history/physical and pertinent information is taken from other notes in the computer and bedside staff. Sepsis Event Evaluation Height, Weight, BMI Height: '" Weight: lbs. oz. kg; 21.00 BMI Method: Exam Exam Vital Signs Date Time Temp Pulse Resp B/P (MAP) Pulse Ox O2 Delivery O2 Flow Rate FiO2 12/23/22 09:51 77 83/58 12/23/22 09:30 77 20 83/58 (66) 100 Mechanical Ventilator 60.00 12/23/22 09:15 84 18 108/86 (93) 100 Mechanical Ventilator 60.00 12/23/22 09:09 84 12/23/22 09:00 87 111/83 (92) Mechanical Ventilator 60.00 12/23/22 08:50 36.3 98 20 118/109 100 Mechanical Ventilator 80.00 12/23/22 07:40 89 97/60 12/23/22 05:45 16 12/23/22 05:30 18 12/23/22 05:15 20 12/23/22 05:00 20 12/23/22 03:49 36.3 127 18 93/79 (84) 98 Room Air 12/23/22 03:49 Room Air Height & Weight Height: '" Weight: lbs. oz. kg; 21.00 BMI Method: General Appearance: No No Apparent Distress, No WD/WN, No Anxious, No Chronically ill, No Cachetic, No Mild Distress, No Moderate Distress, No Obese, No Severe Distress, No Thin, No Other HEENT: No PERRL/EOMI, No TMs Normal, No Normal ENT Inspection, No Pharynx Normal, No Moist Mucous Membranes, No Pale Conjunctivae (L), No Pale Conjunctivae (R), No Pharyngeal Erythema, No Photophobia, No Scleral Icterus (L ), No Scleral Icterus (R), No TM Abnormal (L), No TM Abnormal (R), No Tonsillar Exudate, No Tonsillar Enlargement, No Other Neck: No Full Range of Motion, No Normal Inspection, No Non Tender, No Supple, No Carotid Bruit, No JVD, No Limited Range of Motion, No Lymphadenopathy (L), No Lymphadenopathy (R), No Tender Lateral, No Tender Midline, No Thyromegaly, No Other Respiratory: No Chest Non Tender, No Lungs Clear, No Normal Breath Sounds, No No Accessory Muscle Use, No No Respiratory Distress, No Accessory Muscle Use, No Crackles, No Decreased Breath Sounds, No Expiration, No Inspiration, No Pleural Rub, No Rales, No Respiratory Distress, No Rhonci, No Stridor, No Wheezing, No Other Cardiovascular: No Regular Rate, Rhythm, No No Edema, No No Gallop, No No JVD, No No Murmur, No Normal Peripheral Pulses, No Bradycardia, No Diastolic Murmur, No Systolic Murmur, No Extra Beats, No Friction Rub, No Gallop/S3, No Gallop/S4, No Irregularly Irregular, No JVD, No Tachycardia, No Other Capillary Refill: Less Than 3 Seconds Peripheral Pulses: 2+ Dorsalis Pedis (R), 2+ Left Dors-Pedis (L) Gastrointestinal: normal bowel sounds; No non tender; soft; No no organomegaly, No no pulsatile mass, No abnormal bowel sounds, No distended, No guarding, No rebound, No tenderness, No hernia, No mass, No hepatomegaly, No spleenomegaly, No other Results Lab Laboratory Tests 12/23/22 04:30 Assessment/Plan Assessment/Plan . COLIN FRAGA MD Dec 23, 2022 10:40
[2022-12-23 10:42] LABS: ABG BASE EXCESS 9.8 MMOL/L (-2.5-2.5); ABG OXYGEN SATURATION 97 % (94-100); ABG PCO2 40 MMHG (35-45); ABG PH 7.53 (7.37-7.43); ABG PO2 76 MMHG (79-93); ABG TCO2 34.5 MMOL/L (21.0-31.0)
[2022-12-23 10:43] LABS: INSPIRED O2 60%; VENTILATOR YES
[2022-12-23] MEDS ORDERED: MIDAZOLAM 2 MG/2 ML (VERSED) VIAL IM ONE (11:00)
[2022-12-23 11:05] LABS: PROTHROMBIN TIME PATIENT 13.6 SEC (12.2-14.7)
[2022-12-23] MEDS: fentaNYL DRIP PRE-MIX 250 ML IV SCH ×3 (12:29→23:31)
[2022-12-23] MEDS: MIDAZOLAM DRIP PRE-MIX 100 ML IV SCH ×2 (12:33→22:33)
--- NOTE | 2022-12-23 12:52 | Diagnostic Imaging Report ---
PROCEDURE: US Hepatic (Liver). TECHNIQUE: Multiple real-time grayscale images were obtained over the right upper quadrant in various projections. INDICATION: Hepatitis C, elevated liver enzyme. COMPARISON: None available. FINDINGS: Pancreas is normal where visualized. The liver has mild diffuse increased echogenicity and smooth contours. No focal hepatic lesion. The liver is enlarged measuring 20 cm in length. Main portal vein is patent with normal directional flow and peak systolic velocities of 13 cm/s. Gallbladder is normally filled without stones or sludge. No pericholecystic fluid or gallbladder wall thickening. Right kidney measures 11 cm in length and is without hydronephrosis. No ascites in the right upper quadrant. IMPRESSION: 1. Hepatomegaly with diffuse steatosis. 2. No sonographic features of cirrhosis. Dictated by: Dictated on workstation # [id number]
[2022-12-23] MEDS: THIAMINE INJECTION 100 MG, FOLIC ACID INJECTION 1 MG, MAGNESIUM SULFATE 2 GM, VITAMIN M... IV SCH ×5 (13:56)
[2022-12-23] MEDS: D5 1/2 NS 1000 ML IV SOLUTION 1,000 ML IV PRN ×3 (13:58→14:01)
[2022-12-23] MEDS: D5 1/2 NS W/KCL 20 MEQ/L 1,000 ML IV SCH ×2 (14:02→21:44)
[2022-12-23] MEDS ORDERED: MIDAZOLAM 5 MG/5 ML (VERSED) VIAL INJ ONE (14:21)
[2022-12-23] MEDS ORDERED: ETOMIDATE IV SOLN 20 MG/10 ML VIAL IV ONE (14:21)
[2022-12-23] MEDS ORDERED: ROCURONIUM 50 MG/5 ML (ZEMURON) VIAL IV ONE (14:21)
[2022-12-23 14:28] VITALS: BP 101/77
[2022-12-23 17:05] LABS: CHLORIDE 93 MMOL/L (98-107); SODIUM 131 MMOL/L (135-145)
[2022-12-23 17:06] LABS: CALCIUM 8.3 MG/DL (8.5-10.1)
[2022-12-23 17:07] LABS: GLUCOSE 164 MG/DL (70-105)
[2022-12-23 17:08] LABS: CARBON DIOXIDE 27 MMOL/L (21-32)
[2022-12-23 17:11] LABS: BUN/CREATININE RATIO 9; CREATININE SERUM 0.65 MG/DL (0.60-1.30); GFR ESTIMATED 113
[2022-12-23 17:13] LABS: MAGNESIUM 1.6 MG/DL (1.6-2.4)
[2022-12-23 17:16] LABS: PHOSPHORUS < 0.7 MG/DL (2.3-4.7); POTASSIUM 2.3 MMOL/L (3.6-5.0)
[2022-12-23 18:52] VITALS: BP_DIAS 77
[2022-12-23 21:43] LABS: HEPATITIS C ANTIBODY C Reactive (Non-Reactive)
[2022-12-23 22:07] VITALS: BP 100/66
[2022-12-24] MEDS: POTASSIUM CL 10MEQ/50ML IVPB 50 ML IV SCH ×8 (00:08→13:14)
[2022-12-24] MEDS: D5 1/2 NS W/KCL 20 MEQ/L 1,000 ML IV SCH ×2 (01:24→04:31)
[2022-12-24 02:04] VITALS: BP 120/87
[2022-12-24] MEDS: DexMEDEtomidine 250 ML DRIP 250 ML IV SCH ×3 (02:54→23:31)
[2022-12-24] MEDS: fentaNYL DRIP PRE-MIX 250 ML IV SCH ×4 (04:12→20:09)
[2022-12-24 05:25] LABS: EOSINOPHILS % (AUTO) 0 % (0-10); MEAN CORPUSCULAR VOLUME 103 fL (80-99); PLATELET COUNT 60 10^3/uL (130-400)
[2022-12-24 05:27] LABS: BASOPHILS % (AUTO) 0 % (0-10); HEMATOCRIT 32 % (35-52); HEMOGLOBIN 11.5 g/dL (11.5-16.0); LYMPHOCYTES # (AUTO) 1.7 10^3/uL (1.0-4.0); LYMPHOCYTES % (AUTO) 34 % (12-44); MEAN CORPUSCULAR HEMOGLOBIN 37 pg (25-34); MEAN CORPUSCULAR HGB CONC 36 g/dL (32-36); MEAN PLATELET VOLUME 11.1 fL (9.0-12.2); MONOCYTES # (AUTO) 0.4 10^3/uL (0.0-1.0); MONOCYTES % (AUTO) 9 % (0-12); NEUTROPHILS # (AUTO) 2.8 10^3/uL (1.8-7.8); NEUTROPHILS % (AUTO) 57 % (42-75)
[2022-12-24 05:43] LABS: ALBUMIN 2.8 GM/DL (3.2-4.5); BILIRUBIN,TOTAL 3.9 MG/DL (0.1-1.0); CALCIUM 7.4 MG/DL (8.5-10.1); CREATININE SERUM 0.62 MG/DL (0.60-1.30); MAGNESIUM 1.5 MG/DL (1.6-2.4); PHOSPHORUS 3.2 MG/DL (2.3-4.7); POTASSIUM 3.3 MMOL/L (3.6-5.0); TOTAL PROTEIN 5.6 GM/DL (6.4-8.2)
[2022-12-24] MEDS: KCL 20 MEQ TAB (K-DUR) PO SCH (05:54)
[2022-12-24] MEDS: POTASSIUM BICARB 20 MEQ (EFFER-K) TABLET PO SCH (05:54)
[2022-12-24] MEDS: MAGNESIUM 1 GM/100 ML IVPB 100 ML IV SCH ×4 (05:54→09:42)
[2022-12-24 05:55] LABS: SMEAR SCAN COMMENT YES
[2022-12-24] MEDS ORDERED: MAGNESIUM 1 GM/100 ML IVPB 400 ML IV ONE (05:56)
[2022-12-24] MEDS ORDERED: POTASSIUM CL 10MEQ/50ML IVPB 400 ML IV ONE (05:56)
[2022-12-24 07:15] VITALS: BP 114/81
--- NOTE | 2022-12-24 07:26 | Progress Note ---
Subjective Subjective/Events-last exam Seen at 0900. Afebrile. Remains mechanically ventilated, is on Precedex, fentanyl and midazolam drip and received 24 mg IV ativan last 24 hours. Per nursing, she still gets somewhat agitated even with all the sedation. Objective Exam Last Set of Vital Signs Vital Signs Date Time Temp Pulse Resp B/P (MAP) Pulse Ox O2 Delivery O2 Flow Rate FiO2 12/24/22 06:00 73 26 123/91 (102) 93 Mechanical Ventilator 30.00 12/24/22 04:00 30 12/24/22 03:35 37.6 Capillary Refill : Less Than 3 Seconds I&O Intake and Output 12/24/22 00:00 Intake Total 1625.8 ml Output Total 2700 ml Balance -1074.2 ml Intake IV Total 1625.8 ml Output Urine Total 2700 ml Daily Weight Change No General: Other (intubated, sedated) Lungs: Clear to Auscultation, Normal Air Movement Heart: Regular Rate, No Murmurs Abdomen: Normal Bowel Sounds, Soft Extremities: No Edema Results/Procedures Lab Laboratory Tests 12/23/22 10:16: Blood Gas Puncture Site RIGHT RADIAL, Blood Gas Patient Temperature 37.0, Arterial Blood pH 7.53H, Arterial Blood Partial Pressure CO2 40, Arterial Blood Partial Pressure O2 76L, Arterial Blood HCO3 33H, Arterial Blood Total CO2 34.5H , Arterial Blood Oxygen Saturation 97, Arterial Blood Base Excess 9.8H, Compa Test NA, Blood Gas Ventilator Setting YES, Blood Gas Inspired Oxygen 60% 12/23/22 10:41: Prothrombin Time 13.6, INR Comment 1.0, Activated Partial Thromboplast Time 24, Hepatitis A IgM Antibody Non-Reactive, Hepatitis B Surface Antigen Non-Reactive, Hepatitis B Core IgM Antibody Non-Reactive, Hepatitis C Antibody ReactiveH, Hepatitis C Antibody Index 13.37H 12/23/22 11:28: Glucometer 135H 12/23/22 11:56: Ammonia 28 12/23/22 16:50: Sodium Level 131L, Potassium Level 2.3*L, Chloride Level 93L, Carbon Dioxide Level 27, Anion Gap 11, Blood Urea Nitrogen 6L, Creatinine 0.65, Estimat Glomerular Filtration Rate 113, BUN/Creatinine Ratio 9, Glucose Level 164H, Calcium Level 8.3L, Phosphorus Level < 0.7*L, Magnesium Level 1.6 12/23/22 23:47: Glucometer 166H 12/24/22 05:00: Sodium Level 137, Potassium Level 3.3L, Chloride Level 106, Carbon Dioxide Level 20L, Anion Gap 11, Blood Urea Nitrogen 6L, Creatinine 0.62, Estimat Glomerular Filtration Rate 115, BUN/Creatinine Ratio 10, Glucose Level 161H, Calcium Level 7.4L, Phosphorus Level 3.2, Magnesium Level 1.5L, White Blood Count 5.0, Red Blood Count 3.12L, Hemoglobin 11.5, Hematocrit 32L, Mean Corpuscular Volume 103H , Mean Corpuscular Hemoglobin 37H, Mean Corpuscular Hemoglobin Concent 36, Red Cell Distribution Width 13.7, Platelet Count 60L, Mean Platelet Volume 11.1, Immature Granulocyte % (Auto) 0, Neutrophils (%) (Auto) 57, Lymphocytes (%) (Auto) 34, Monocytes (%) (Auto) 9, Eosinophils (%) (Auto) 0, Basophils (%) (Auto) 0, Neutrophils # (Auto) 2.8, Lymphocytes # (Auto) 1.7, Monocytes # (Auto) 0.4, Eosinophils # (Auto) 0.0, Basophils # (Auto) 0.0, Immature Granulocyte # (Auto) 0.0, Percent Immature Platelet Fraction 7.4, Corrected Calcium 8.4L, Total Bilirubin 3.9H, Aspartate Amino Transf (AST/SGOT) 140H, Alanine Aminotransferase (ALT/SGPT) 85H, Alkaline Phosphatase 89, Total Protein 5.6L, Albumin 2.8L, Smear Scan YES Radiology CT head 12/23/22: IMPRESSION: No acute intracranial abnormality is detected although there is mild bilateral maxillary sinus and extensive right sphenoid sinus disease. CXR 12/23/22: IMPRESSION: No evidence of acute abnormality or complication post intubation. Assessment/Plan Assessment/Plan (1) Delirium tremens Status: Acute Assessment & Plan: CT head without acute findings. Intubated, sedated on dexmedetomidine, fentanyl and midazolam, alcohol withdrawal protocol with CIWA and IV lorazepam, daily banana bag. (2) Elevated liver enzymes Status: Chronic Assessment & Plan: Chart review shows LFTs minimally elevated (AST/ALT in the 40s) 10/2021, so significantly above previous baseline. Consider acute alcoholic hepatitis. Check PT/INR, PTT and hepatitis panel as well as liver ultrasound with doppler to eval for other causes. 12/24 trending down. Liver US without mass or cirrhosis. Hepatitis panel positive only for Hep C antibody. (3) Alcohol withdrawal delirium Status: Acute (4) Hypokalemia Status: Acute Assessment & Plan: Marked, replacing with 60 mEq initially, recheck after and if near normal, will use protocol replacement. 12/24 improved to 3.3, continue replacing. (5) Hypomagnesemia Status: Acute Assessment & Plan: Replaced per ER, low again this am, continue to replace and follow. (6) Hypophosphatemia Status: Resolved Assessment & Plan: Replace and recheck. (7) Thrombocytopenia Status: Acute Assessment & Plan: Last check at clinic 10/2021 CBC was normal. Suspect due to alcohol use/liver failure. Trending down, consider holding enoxaparin if persistently decreasing. (8) Leukopenia Status: Resolved Assessment & Plan: Previously normal a year ago. Suspect due to liver disease, normal 12/24 (9) Alcohol use disorder Status: Chronic (10) Opioid use disorder Status: Chronic Assessment & Plan: Per clinic chart, on Suboxone prescribed by Dr. Godoy, however, unable to confirm if still taking, was last seen at [facility] October 2021. (11) Hypertension Status: Chronic Assessment & Plan: Currently borderline hypotensive after intubation, hold home medications, monitor. (12) Bipolar disorder Status: Chronic (13) History of hepatitis C Status: Chronic Assessment & Plan: Per clinic records, treated in 2014 with good response, negative viral PCR in 2018. Check acute hepatitis panel given acute hepatitis, but Hep C antibody anticipated to be positive, if remainder of acute testing negative, check Hep C PCR if liver enzymes persistently markedly elevated. (14) DVT prophylaxis Status: Acute Assessment & Plan: Enoxaparin- monitor closely with low platelets BRADLEY MYERS MD Dec 24, 2022 07:26
[2022-12-24] MEDS: MIDAZOLAM DRIP PRE-MIX 100 ML IV SCH ×2 (09:39→16:50)
[2022-12-24] MEDS: ENOXAPARIN 40 MG/0.4 ML (LOVENOX) SYR SC SCH (09:40)
[2022-12-24] MEDS: LACTATED RINGERS 1,000 ML IV SCH ×2 (10:00→18:39)
[2022-12-24] MEDS: THIAMINE INJECTION 100 MG, FOLIC ACID INJECTION 1 MG, MAGNESIUM SULFATE 2 GM, VITAMIN M... IV SCH ×5 (10:03)
[2022-12-24 10:35] VITALS: BP 92/61
--- NOTE | 2022-12-24 10:55 | Tele-ICU Progress Note ---
Subjective Date Seen by a Provider: Dec 24, 2022 Time Seen by a Provider: 10:55 Subjective/Events-last exam (Tele-ICU Physician , Progress Note ) Service provided via interactive audio and video telecommunications E-CARE system to a patient admitted to ICU bed in [facility]. Patient is seen today due to persistent need of ICU care Available chart/ vitals / labs / Images reviewed Video assessment done using teleICU camera, rest of exam as per RN Discussed with RN Events overnight : Afebrile hemodynamically stable Respiratory - I/O = Drips: Pressors- no VENT SETTINGS and ABG reviewed NOT CANDIDATE for SBTreviewed possible contraindications including Cardiovascular Stability /Sedation Score / FI02/PEEP / ABG / CXR/ secretions Sedation, discussed with RN, RASS - 2 on versed 8 , precedex1.5 , fentanyl 200 Hospital course: 12/23- 42 y/o F with no significant PMHx who presented to ED with c/o heavy alcohol use concerned about possible seizure at home. In ER noted to have progressively worsening agitation and was combative. Ultimately required sedation with propofol and precedex and as a result intubated for airway protection. 12/24- PRVC 400/120/435/5, on versed 8 , precedex1.5 , fentanyl 200 , no Sz Acute respiratory failure 2/2 AMS requiring airway protection -Intubated 12/23 PRVC 400/120/435/5- rr to 16 - no secretions -Will cont to wean vent as tolerated. Alcohol withdrawal: -Intubated for severe agitation -versed 8 , precedex1.5 , fentanyl 200 , Off propofol given elevated TG 166 on admission - thiamine , folate -add phenobarb for 2 days possible seizure - suspected due to ETOH withdrawal - benzo pen , no AED Hypokalemia: / hypophos -replacing Transaminitis- improving - US RUQ: Hepatomegaly with diffuse steatosis.No sonographic features of cirrhosis --ammonia and coags WNL Lines : periph , (Central Line Necessity Reviewed) Antony: + Nutrition: to start TF VTE Prophylaxis: sally Stress Ulcer Prophylaxis: Protonix Plans in collaboration with bedside consultants and IM MDs. Discussed with RN to reach out if any questions or concerns Case and care daily discussed on multidisciplinary rounds ( RN, PharmD, Nutri tionist , Respiratory Therapy, machine operator hop worker ) A total of 32 minutes of critical care time was devoted to this patient today, required to treat and/or prevent further deterioration of critical care condition ( as above ) I am remotely monitoring this patient from another state. I am unable to do the bedside exam, and history/physical and pertinent information is taken from other notes in the computer and bedside staff. Sepsis Event Evaluation Height, Weight, BMI Height: '" Weight: lbs. oz. kg; 21.29 BMI Method: Exam Exam Patient acknowledged, consented, and participated in this virtual visit which was conducted using real time audio/video Vital Signs Date Time Temp Pulse Resp B/P (MAP) Pulse Ox O2 Delivery O2 Flow Rate FiO2 12/24/22 10:35 72 16 91 30 12/24/22 10:00 72 20 93/58 (65) 90 Mechanical Ventilator 30.00 12/24/22 09:39 72 20 99/68 12/24/22 09:00 72 28 103/70 (80) 91 Mechanical Ventilator 30.00 12/24/22 08:00 71 103/72 (82) 91 Mechanical Ventilator 30.00 12/24/22 07:31 36.4 12/24/22 07:15 70 20 95 30 12/24/22 07:00 74 27 115/83 (93) 93 Mechanical Ventilator 30.00 12/24/22 07:00 70 12/24/22 06:00 73 26 123/91 (102) 93 Mechanical Ventilator 30.00 12/24/22 05:00 72 38 128/87 (101) 94 Mechanical Ventilator 30.00 12/24/22 04:12 70 120/87 12/24/22 04:00 100 Mechanical Ventilator 30 12/24/22 04:00 70 27 127/90 (102) 95 Mechanical Ventilator 30.00 12/24/22 03:35 37.6 12/24/22 03:13 37.6 12/24/22 03:00 71 27 122/86 (98) 95 Mechanical Ventilator 30.00 12/24/22 02:54 70 120/87 12/24/22 02:04 70 20 95 30 12/24/22 02:00 70 24 119/84 (96) 94 Mechanical Ventilator 30.00 12/24/22 01:25 37.7 12/24/22 01:00 73 12/24/22 01:00 72 28 121/87 (98) 95 Mechanical Ventilator 30.00 12/24/22 00:34 37.7 12/24/22 00:00 71 23 120/90 (100) 91 Mechanical Ventilator 30.00 12/23/22 23:59 100 Mechanical Ventilator 30 12/23/22 23:31 72 100/66 12/23/22 23:00 72 20 109/79 (89) 91 Mechanical Ventilator 30.00 12/23/22 22:33 72 20 100/66 12/23/22 22:07 72 20 93 30 12/23/22 22:00 71 20 107/79 (88) 92 Mechanical Ventilator 30.00 12/23/22 21:00 71 20 92/59 (70) 98 Mechanical Ventilator 30.00 12/23/22 20:06 36.5 12/23/22 20:00 67 20 91/57 (68) 98 Mechanical Ventilator 30.00 12/23/22 20:00 100 Mechanical Ventilator 30 12/23/22 19:00 66 20 92/56 (68) 94 Mechanical Ventilator 30.00 12/23/22 19:00 65 12/23/22 18:52 64 20 96 30 12/23/22 18:46 66 89/59 12/23/22 18:00 66 23 89/59 (69) 95 Mechanical Ventilator 30.00 12/23/22 17:00 68 30 95/62 (73) 98 Mechanical Ventilator 30.00 12/23/22 16:45 70 26 95/56 (69) 94 Mechanical Ventilator 30.00 12/23/22 16:40 68 95/62 12/23/22 16:30 72 34 92/60 (71) 94 Mechanical Ventilator 30.00 12/23/22 16:15 78 21 94/62 (73) 94 Mechanical Ventilator 30.00 12/23/22 16:00 97 Mechanical Ventilator 12/23/22 16:00 90 20 101/68 (79) 97 Mechanical Ventilator 30.00 12/23/22 15:45 91 19 107/77 (87) 90 Mechanical Ventilator 30.00 12/23/22 15:30 91 21 103/70 (81) 99 Mechanical Ventilator 30.00 12/23/22 15:30 37.4 12/23/22 15:15 90 20 101/68 (79) 97 Mechanical Ventilator 30.00 12/23/22 15:00 88 20 105/72 (83) 97 Mechanical Ventilator 30.00 12/23/22 14:45 90 22 113/81 (92) 99 Mechanical Ventilator 30.00 12/23/22 14:31 Mechanical Ventilator 30.00 12/23/22 14:28 90 20 99 21 12/23/22 13:11 78 85/55 12/23/22 12:58 78 12/23/22 12:45 75 20 101/77 (85) 100 Mechanical Ventilator 60.00 12/23/22 12:33 73 20 85/55 12/23/22 12:29 73 85/55 12/23/22 12:00 97 Mechanical Ventilator 12/23/22 11:45 75 28 94/68 (77) 100 Mechanical Ventilator 60.00 12/23/22 11:33 37.3 Mechanical Ventilator 60.00 12/23/22 11:07 73 85/55 12/23/22 11:00 74 20 118/85 (96) 100 Mechanical Ventilator 60.00 I & O 12/24/22 07:00 Intake Total 1625.8 ml Output Total 3875 ml Balance -2249.2 ml Height & Weight Height: '" Weight: lbs. oz. kg; 21.29 BMI Method: General Appearance: No No Apparent Distress, No WD/WN, No Anxious, No Chronically ill, No Cachetic, No Mild Distress, No Moderate Distress, No Obese, No Severe Distress, No Thin, No Other HEENT: No PERRL/EOMI, No TMs Normal, No Normal ENT Inspection, No Pharynx Normal, No Moist Mucous Membranes, No Pale Conjunctivae (L), No Pale Conjunctivae (R), No Pharyngeal Erythema, No Photophobia, No Scleral Icterus (L), No Scleral Icterus (R), No TM Abnormal (L), No TM Abnormal (R), No Tonsillar Exudate, No Tonsillar Enlargement, No Other Neck: No Full Range of Motion, No Normal Inspection, No Non Tender, No Supple, No Carotid Bruit, No JVD, No Limited Range of Motion, No Lymphadenopathy (L), No Lymphadenopathy (R), No Tender Lateral, No Tender Midline, No Thyromegaly, No Other Respiratory: No Chest Non Tender, No Lungs Clear, No Normal Breath Sounds, No No Accessory Muscle Use, No No Respiratory Distress, No Accessory Muscle Use, No Crackles, No Decreased Breath Sounds, No Expiration, No Inspiration, No Pleural Rub, No Rales, No Respiratory Distress, No Rhonci, No Stridor, No Wheezing, No Other Cardiovascular: No Regular Rate, Rhythm, No No Edema, No No Gallop, No No JVD, No No Murmur, No Normal Peripheral Pulses, No Bradycardia, No Diastolic Murmur, No Systolic Murmur, No Extra Beats, No Friction Rub, No Gallop/S3, No Gallop/S4, No Irregularly Irregular, No JVD, No Tachycardia, No Other Capillary Refill: Less Than 3 Seconds Peripheral Pulses: 2+ Dorsalis Pedis (R), 2+ Left Dors-Pedis (L) Gastrointestinal: normal bowel sounds, non tender, soft Results Lab Laboratory Tests 12/23/22 04:30 12/23/22 16:50 12/24/22 05:00 Assessment/Plan Assessment/Plan 1 SHELLY CLEMENT MD Dec 24, 2022 10:55
[2022-12-24] MEDS: LORazepam INJ 2 MG/ML (ATIVAN) VIAL IV PRN ×3 (14:25→18:36)
[2022-12-24 14:43] VITALS: BP 98/60
[2022-12-24] MEDS: ACETAMINOPHEN 500 MG TAB (TYLENOL) PO PRN (18:14)
[2022-12-24 18:26] VITALS: BP 109/64
[2022-12-24 21:48] VITALS: BP 118/80
[2022-12-25] MEDS: fentaNYL DRIP PRE-MIX 250 ML IV SCH ×5 (00:11→21:24)
[2022-12-25] MEDS: MIDAZOLAM DRIP PRE-MIX 100 ML IV SCH ×3 (01:44→20:14)
[2022-12-25 04:22] LABS: BASOPHILS % (AUTO) 0 % (0-10); HEMOGLOBIN 10.3 g/dL (11.5-16.0)
[2022-12-25 04:24] LABS: EOSINOPHILS % (AUTO) 1 % (0-10); HEMATOCRIT 30 % (35-52); LYMPHOCYTES # (AUTO) 1.6 10^3/uL (1.0-4.0); LYMPHOCYTES % (AUTO) 31 % (12-44); MEAN CORPUSCULAR HEMOGLOBIN 37 pg (25-34); MEAN CORPUSCULAR HGB CONC 35 g/dL (32-36); MEAN CORPUSCULAR VOLUME 108 fL (80-99); MEAN PLATELET VOLUME 11.1 fL (9.0-12.2); MONOCYTES # (AUTO) 0.5 10^3/uL (0.0-1.0); MONOCYTES % (AUTO) 10 % (0-12); NEUTROPHILS # (AUTO) 3.1 10^3/uL (1.8-7.8); NEUTROPHILS % (AUTO) 58 % (42-75); PLATELET COUNT 54 10^3/uL (130-400); WHITE BLOOD COUNT 5.3 10^3/uL (4.3-11.0)
[2022-12-25 04:30] LABS: ALBUMIN 2.2 GM/DL (3.2-4.5); POTASSIUM 3.7 MMOL/L (3.6-5.0)
[2022-12-25 04:31] LABS: CALCIUM 6.6 MG/DL (8.5-10.1)
[2022-12-25 04:33] LABS: TOTAL PROTEIN 4.7 GM/DL (6.4-8.2)
[2022-12-25 04:34] LABS: BILIRUBIN,TOTAL 3.9 MG/DL (0.1-1.0)
[2022-12-25 04:36] LABS: CREATININE SERUM 0.51 MG/DL (0.60-1.30); PHOSPHORUS 2.3 MG/DL (2.3-4.7)
[2022-12-25 04:39] LABS: MAGNESIUM 1.9 MG/DL (1.6-2.4)
[2022-12-25] MEDS ORDERED: POTASSIUM CL 10MEQ/50ML IVPB 100 ML IV ONE (04:49)
[2022-12-25] MEDS ORDERED: MAGNESIUM 1 GM/100 ML IVPB 200 ML IV ONE (04:50)
[2022-12-25] MEDS: POTASSIUM CL 10MEQ/50ML IVPB 50 ML IV SCH ×3 (05:20→05:21)
[2022-12-25] MEDS: MAGNESIUM 1 GM/100 ML IVPB 100 ML IV SCH ×3 (05:21→06:22)
[2022-12-25] MEDS: POTASSIUM BICARB 20 MEQ (EFFER-K) TABLET PO SCH (05:22)
[2022-12-25] MEDS: KCL 20 MEQ TAB (K-DUR) PO SCH (05:23)
[2022-12-25] MEDS: LACTATED RINGERS 1,000 ML IV SCH (05:29)
--- NOTE | 2022-12-25 06:37 | Progress Note - Hospitalist ---
Subjective HPI/CC On Admission Date Seen by Provider: Dec 25, 2022 Time Seen by Provider: 11:00 Subjective/Events-last exam No major changes Remains on vent Alcohol withdrawal requiring multiple meds Review of Systems General: Fatigue, Malaise Objective Exam Vital Signs Vital Signs Date Time Temp Pulse Resp B/P (MAP) Pulse Ox O2 Delivery O2 Flow Rate FiO2 12/25/22 16:00 70 32 117/72 (82) 91 Mechanical Ventilator 30.00 12/25/22 15:57 45 12/25/22 15:36 36.9 Capillary Refill : Less Than 3 Seconds General Appearance: No Apparent Distress, WD/WN, Chronically ill, Other (s edated) Respiratory: Lungs Clear Cardiovascular: Regular Rate, Rhythm Results/Procedures Lab Laboratory Tests 12/25/22 04:10 Patient resulted labs reviewed. Assessment/Plan Assessment and Plan Assess & Plan/Chief Complaint Severe alcohol withdrawal requiring intubation (1) Delirium tremens Status: Acute Assessment & Plan: CT head without acute findings. Intubated, sedated on dexmedetomidine, alcohol withdrawal protocol with CIWA and IV lorazepam. (2) Elevated liver enzymes Status: Chronic Assessment & Plan: Chart review shows LFTs minimally elevated (AST/ALT in the 40s) 10/2021, so significantly above previous baseline. Consider acute alcoholic hepatitis. Check PT/INR, PTT and hepatitis panel as well as liver ultrasound with doppler to eval for other causes. (3) Alcohol withdrawal delirium Status: Acute (4) Hypokalemia Status: Acute Assessment & Plan: Marked, replacing with 60 mEq initially, recheck after and if near normal, will use protocol replacement. (5) Hypomagnesemia Status: Acute Assessment & Plan: Replaced per ER, recheck. (6) Hypophosphatemia Status: Acute Assessment & Plan: Replace and recheck. (7) Thrombocytopenia Status: Acute Assessment & Plan: Last check at clinic 10/2021 CBC was normal. Suspect due to alcohol use/liver failure. Monitor closely. (8) Leukopenia Status: Acute Assessment & Plan: Previously normal a year ago. Suspect due to liver disease, monitor. (9) Alcohol use disorder Status: Chronic (10) Opioid use disorder Status: Chronic Assessment & Plan: Per clinic chart, on Suboxone prescribed by Dr. Godoy, however, unable to confirm if still taking, was last seen at [facility] October 2021. (11) Hypertension Status: Chronic Assessment & Plan: Currently borderline hypotensive after intubation, hold home medications, monitor. (12) Bipolar disorder Status: Chronic (13) History of hepatitis C Status: Chronic Assessment & Plan: Per clinic records, treated in 2014 with good response, negative viral PCR in 2018. Check acute hepatitis panel given acute hepatitis, but Hep C antibody anticipated to be positive, if remainder of acute testing negative, check Hep C PCR. (14) DVT prophylaxis Status: Acute Assessment & Plan: Enoxaparin- monitor closely with low platelets JEN SEXTON DO Dec 25, 2022 06:37
[2022-12-25] MEDS: THIAMINE INJECTION 100 MG, FOLIC ACID INJECTION 1 MG, MAGNESIUM SULFATE 2 GM, VITAMIN M... IV SCH ×5 (08:52)
[2022-12-25] MEDS: DexMEDEtomidine 250 ML DRIP 250 ML IV SCH ×2 (08:52→18:24)
[2022-12-25] MEDS: LORazepam INJ 2 MG/ML (ATIVAN) VIAL IV PRN ×7 (08:54→22:14)
--- NOTE | 2022-12-25 09:37 | Diagnostic Imaging Report ---
EXAMINATION: Chest 1 view HISTORY: Intubated COMPARISON: 12/23/2022 FINDINGS: Endotracheal tube tip terminates 4 cm above the [place]. Gastric tube tip terminates below the field of view. There is bibasilar atelectasis. No pleural effusion or pneumothorax. Heart size is normal. IMPRESSION: 1. Bibasilar atelectasis. Dictated by: Dictated on workstation # [id number]
[2022-12-25] MEDS: ENOXAPARIN 40 MG/0.4 ML (LOVENOX) SYR SC SCH (09:50)
--- NOTE | 2022-12-25 10:00 | Tele-ICU Progress Note ---
Subjective Date Seen by a Provider: Dec 25, 2022 Time Seen by a Provider: 10:00 Subjective/Events-last exam (Tele-ICU Physician , Progress Note ) Service provided via interactive audio and video telecommunications E-CARE system to a patient admitted to ICU bed in [facility]. Patient is seen today due to persistent need of ICU care Available chart/ vitals / labs / Images reviewed Video assessment done using teleICU camera, rest of exam as per RN Discussed with RN Events overnight : Afebrile hemodynamically stable Respiratory - 35% I/O =POS 2L Drips: Pressors- no VENT SETTINGS and ABG reviewed NOT CANDIDATE for SBTreviewed possible contraindications including Cardiovascular Stability /Sedation Score / FI02/PEEP / ABG / CXR/ secretions Sedation, discussed with RN, RASS - 2 versed 810, precedex1.5 , fentanyl 300 Hospital course: 12/23- 42 y/o F with no significant PMHx who presented to ED with c/o heavy alcohol use concerned about possible seizure at home. In ER noted to have progressively worsening agitation and was combative. INTUVBATED 12/24- PRVC 400/120/435/5, on versed 8 , precedex1.5 , fentanyl 200 , no Sz 12/25- PRVC 16 450 +5 35 % on versed 810, precedex1.5 , fentanyl 300 , no Sz A/P Acute respiratory failure 2/2 AMS requiring airway protection -Intubated 12/23 PRVC 16 450 +5 35 % - minimal secretions , sputum from ETT - usual floura 12/23 -Will cont to wean vent as tolerated. FEVER 12/24 - cx blood done , sputum from ETT - usual floura 12/23 - to repeat cxr Alcohol withdrawal: -Intubated for severe agitation -versed 810, precedex1.5 , fentanyl 300 , Off propofol given elevated TG 166 on admission. prn Ativan - thiamine , folate -add phenobarb for 2 days 12/24- possible seizure - suspected due to ETOH withdrawal - benzo pen , no AED Hypokalemia: / hypophos -replacing Transaminitis- improving - US RUQ: Hepatomegaly with diffuse steatosis.No sonographic features of cirrhosis --ammonia and coags WNL Anemia - delutional -monitor Thrombocytopenia - presumed due to ETON , sally ON HOLD Lines : PICC 12/24 LEFT , (Central Line Necessity Reviewed) Antony: + Nutrition: to start TF VTE Prophylaxis: sally ON HOLD with thrombocytopenia Stress Ulcer Prophylaxis: Protonix Plans in collaboration with bedside consultants and IM MDs. Discussed with RN to reach out if any questions or concerns Case and care daily discussed on multidisciplinary rounds ( RN, PharmD, General Scrap Worker , Respiratory Therapy, demurrage worker ) A total of 32 minutes of critical care time was devoted to this patient today, required to treat and/or prevent further deterioration of critical care condition ( as above ) I am remotely monitoring this patient from another state. I am unable to do the bedside exam, and history/physical and pertinent information is taken from other notes in the computer and bedside staff. Sepsis Event Evaluation Height, Weight, BMI Height: '" Weight: lbs. oz. kg; 21.29 BMI Method: Exam Exam Patient acknowledged, consented, and participated in this virtual visit which was conducted using real time audio/video Vital Signs Date Time Temp Pulse Resp B/P (MAP) Pulse Ox O2 Delivery O2 Flow Rate FiO2 12/25/22 09:00 55 23 109/75 (87) 93 Mechanical Ventilator 30.00 12/25/22 08:53 60 116/77 12/25/22 08:52 60 116/77 12/25/22 08:24 55 109/75 12/25/22 08:00 60 16 116/77 (87) 98 Mechanical Ventilator 30.00 12/25/22 07:25 36.7 12/25/22 07:21 60 12/25/22 07:00 59 16 115/77 (86) 98 Mechanical Ventilator 30.00 12/25/22 06:22 59 16 98 35 12/25/22 06:00 60 25 117/84 (95) 98 Mechanical Ventilator 30.00 12/25/22 05:00 63 24 132/89 (103) 98 Mechanical Ventilator 30.00 12/25/22 04:24 64 118/80 12/25/22 04:06 36.9 12/25/22 04:00 64 16 128/88 (101) 97 Mechanical Ventilator 30.00 12/25/22 04:00 100 Mechanical Ventilator 30 12/25/22 03:00 64 16 128/87 (101) 97 Mechanical Ventilator 30.00 12/25/22 02:14 64 16 97 35 12/25/22 02:00 65 21 124/85 (98) 97 Mechanical Ventilator 30.00 12/25/22 01:44 71 17 118/80 12/25/22 01:00 64 12/25/22 01:00 63 21 122/85 (97) 97 Mechanical Ventilator 30.00 12/25/22 00:11 71 118/80 12/25/22 00:00 67 29 117/81 (93) 96 Mechanical Ventilator 30.00 12/24/22 23:59 100 Mechanical Ventilator 30 12/24/22 23:31 71 118/80 12/24/22 23:31 36.7 12/24/22 23:00 68 16 115/82 (93) 96 Mechanical Ventilator 30.00 12/24/22 22:00 69 25 116/80 (92) 95 Mechanical Ventilator 30.00 12/24/22 21:48 71 17 95 35 12/24/22 21:00 73 17 117/79 (92) 95 Mechanical Ventilator 30.00 12/24/22 20:09 75 109/64 12/24/22 20:00 73 18 113/76 (88) 94 Mechanical Ventilator 30.00 12/24/22 20:00 100 Mechanical Ventilator 30 12/24/22 19:00 73 17 111/64 (80) 93 Mechanical Ventilator 30.00 12/24/22 19:00 80 12/24/22 19:00 37.0 12/24/22 18:44 37.9 12/24/22 18:26 75 22 91 35 12/24/22 18:14 38.4 12/24/22 18:00 73 18 108/62 (74) 93 Mechanical Ventilator 30.00 12/24/22 17:00 80 23 92/59 (70) 93 Mechanical Ventilator 30.00 12/24/22 16:50 73 12/24/22 16:00 71 24 102/61 (71) Mechanical Ventilator 30.00 12/24/22 16:00 100 Mechanical Ventilator 30 12/24/22 15:00 71 22 97/63 (70) 90 Mechanical Ventilator 30.00 12/24/22 14:43 70 20 91 35 12/24/22 14:26 68 100/64 12/24/22 14:00 71 102/64 (76) 93 Mechanical Ventilator 30.00 12/24/22 13:00 72 102/63 (72) 93 Mechanical Ventilator 30.00 12/24/22 12:31 72 12/24/22 12:00 100 Mechanical Ventilator 30 12/24/22 12:00 73 30 101/61 (72) 92 Mechanical Ventilator 30.00 12/24/22 11:56 36.9 12/24/22 11:00 73 100/61 (68) 93 Mechanical Ventilator 30.00 12/24/22 10:35 72 16 91 30 I & O 12/25/22 07:00 Intake Total 4555.2 ml Output Total 1625 ml Balance 2930.2 ml Height & Weight Height: '" Weight: lbs. oz. kg; 21.29 BMI Method: General Appearance: No No Apparent Distress, No WD/WN, No Anxious, No Chronically ill, No Cachetic, No Mild Distress, No Moderate Distress, No Obese, No Severe Distress, No Thin, No Other HEENT: No PERRL/EOMI, No TMs Normal, No Normal ENT Inspection, No Pharynx Normal, No Moist Mucous Membranes, No Pale Conjunctivae (L), No Pale Conjunctivae (R), No Pharyngeal Erythema, No Photophobia, No Scleral Icterus (L), No Scleral Icterus (R), No TM Abnormal (L), No TM Abnormal (R), No Tonsillar Exudate, No Tonsillar Enlargement, No Other Neck: No Full Range of Motion, No Normal Inspection, No Non Tender, No Supple, No Carotid Bruit, No JVD, No Limited Range of Motion, No Lymphadenopathy (L), No Lymphadenopathy (R), No Tender Lateral, No Tender Midline, No Thyromegaly, No Other Respiratory: No Chest Non Tender, No Lungs Clear, No Normal Breath Sounds, No No Accessory Muscle Use, No No Respiratory Distress, No Accessory Muscle Use, No Crackles, No Decreased Breath Sounds, No Expiration, No Inspiration, No Pleural Rub, No Rales, No Respiratory Distress, No Rhonci, No Stridor, No Wheezing, No Other Cardiovascular: No Regular Rate, Rhythm, No No Edema, No No Gallop, No No JVD, No No Murmur, No Normal Peripheral Pulses, No Bradycardia, No Diastolic Murmur, No Systolic Murmur, No Extra Beats, No Friction Rub, No Gallop/S3, No Gallop/S4, No Irregularly Irregular, No JVD, No Tachycardia, No Other Capillary Refill: Less Than 3 Seconds Peripheral Pulses: 2+ Dorsalis Pedis (R), 2+ Left Dors-Pedis (L) Gastrointestinal: normal bowel sounds, non tender, soft Results Lab Laboratory Tests 12/23/22 16:50 12/24/22 05:00 12/25/22 04:10 Assessment/Plan Assessment/Plan 1 SHELLY CLEMENT MD Dec 25, 2022 10:00
[2022-12-25 18:32] VITALS: BP 121/83
[2022-12-25 21:59] VITALS: BP 110/61
[2022-12-26] MEDS: MIDAZOLAM DRIP PRE-MIX 100 ML IV SCH ×3 (00:21→18:08)
[2022-12-26] MEDS: fentaNYL DRIP PRE-MIX 250 ML IV SCH ×7 (00:21→22:11)
[2022-12-26] MEDS: LORazepam INJ 2 MG/ML (ATIVAN) VIAL IV PRN ×6 (01:54→13:19)
[2022-12-26 02:08] VITALS: BP 119/52
[2022-12-26 03:23] LABS: ABG BASE EXCESS -3.9 MMOL/L (-2.5-2.5); ABG OXYGEN SATURATION 93 % (94-100); ABG PCO2 31 MMHG (35-45); ABG PH 7.42 (7.37-7.43); ABG PO2 59 MMHG (79-93)
[2022-12-26 03:25] LABS: ALLENS TEST YES-POS
[2022-12-26 03:26] LABS: BASOPHILS % (AUTO) 1 % (0-10); MEAN CORPUSCULAR HEMOGLOBIN 37 pg (25-34); PATIENT TEMP 36.4; PLATELET COUNT 69 10^3/uL (130-400); VENTILATOR YES
[2022-12-26 03:28] LABS: EOSINOPHILS # (AUTO) 0.1 10^3/uL (0.0-0.3); EOSINOPHILS % (AUTO) 2 % (0-10); HEMATOCRIT 30 % (35-52); HEMOGLOBIN 10.5 g/dL (11.5-16.0); LYMPHOCYTES # (AUTO) 0.6 10^3/uL (1.0-4.0); LYMPHOCYTES % (AUTO) 15 % (12-44); MEAN CORPUSCULAR HGB CONC 35 g/dL (32-36); MEAN CORPUSCULAR VOLUME 106 fL (80-99); MEAN PLATELET VOLUME 11.5 fL (9.0-12.2); MONOCYTES # (AUTO) 0.6 10^3/uL (0.0-1.0); MONOCYTES % (AUTO) 15 % (0-12); NEUTROPHILS # (AUTO) 2.5 10^3/uL (1.8-7.8); NEUTROPHILS % (AUTO) 67 % (42-75); WHITE BLOOD COUNT 3.8 10^3/uL (4.3-11.0)
[2022-12-26 03:36] LABS: ALBUMIN 2.5 GM/DL (3.2-4.5)
[2022-12-26 03:37] LABS: POTASSIUM 4.1 MMOL/L (3.6-5.0)
[2022-12-26 03:38] LABS: CALCIUM 7.6 MG/DL (8.5-10.1)
[2022-12-26 03:39] LABS: TOTAL PROTEIN 5.4 GM/DL (6.4-8.2)
[2022-12-26 03:42] LABS: PHOSPHORUS 1.4 MG/DL (2.3-4.7)
[2022-12-26 03:43] LABS: CREATININE SERUM 0.57 MG/DL (0.60-1.30)
[2022-12-26 03:46] LABS: MAGNESIUM 1.5 MG/DL (1.6-2.4)
[2022-12-26 04:04] LABS: BILIRUBIN,TOTAL 4.5 MG/DL (0.1-1.0)
[2022-12-26] MEDS: DexMEDEtomidine 250 ML DRIP 250 ML IV SCH ×2 (04:11→14:34)
[2022-12-26] MEDS: MAGNESIUM 1 GM/100 ML IVPB 100 ML IV SCH ×3 (05:55→07:52)
[2022-12-26] MEDS: POTASSIUM CL 10MEQ/50ML IVPB 50 ML IV SCH (05:55)
[2022-12-26] MEDS: KCL 20 MEQ TAB (K-DUR) PO SCH (05:55)
[2022-12-26] MEDS: POTASSIUM BICARB 20 MEQ (EFFER-K) TABLET PO SCH (05:55)
--- NOTE | 2022-12-26 06:52 | Progress Note - Hospitalist ---
Subjective HPI/CC On Admission Date Seen by Provider: Dec 26, 2022 Time Seen by Provider: 11:00 Subjective/Events-last exam Patient still on ventilator Reviewed meds and labs FiO2 at 55% Objective Exam Vital Signs Vital Signs Date Time Temp Pulse Resp B/P (MAP) Pulse Ox O2 Delivery O2 Flow Rate FiO2 12/26/22 14:34 80 116/62 12/26/22 13:00 21 93 Mechanical Ventilator 55.00 12/26/22 11:54 36.6 12/26/22 10:47 55 Capillary Refill : Less Than 3 Seconds General Appearance: Chronically ill, Other (Sedated on vent) Respiratory: Lungs Clear, Normal Breath Sounds Cardiovascular: Regular Rate, Rhythm Results/Procedures Lab Laboratory Tests 12/26/22 03:13 Patient resulted labs reviewed. Assessment/Plan Assessment and Plan Assess & Plan/Chief Complaint Severe alcohol withdrawal requiring intubation (1) Delirium tremens Status: Acute Assessment & Plan: CT head without acute findings. Intubated, sedated on de xmedetomidine, alcohol withdrawal protocol with CIWA and IV lorazepam. (2) Elevated liver enzymes Status: Chronic Assessment & Plan: Chart review shows LFTs minimally elevated (AST/ALT in the 40s) 10/2021, so significantly above previous baseline. Consider acute alcoholic hepatitis. Check PT/INR, PTT and hepatitis panel as well as liver ultrasound with doppler to eval for other causes. (3) Alcohol withdrawal delirium Status: Acute (4) Hypokalemia Status: Acute Assessment & Plan: Marked, replacing with 60 mEq initially, recheck after and if near normal, will use protocol replacement. (5) Hypomagnesemia Status: Acute Assessment & Plan: Replaced per ER, recheck. (6) Hypophosphatemia Status: Acute Assessment & Plan: Replace and recheck. (7) Thrombocytopenia Status: Acute Assessment & Plan: Last check at clinic 10/2021 CBC was normal. Suspect due to alcohol use/liver failure. Monitor closely. (8) Leukopenia Status: Acute Assessment & Plan: Previously normal a year ago. Suspect due to liver disease, monitor. (9) Alcohol use disorder Status: Chronic (10) Opioid use disorder Status: Chronic Assessment & Plan: Per clinic chart, on Suboxone prescribed by Dr. Nallely macdonald, however, unable to confirm if still taking, was last seen at [facility] October 2021. (11) Hypertension Status: Chronic Assessment & Plan: Currently borderline hypotensive after intubation, hold home medications, monitor. (12) Bipolar disorder Status: Chronic (13) History of hepatitis C Status: Chronic Assessment & Plan: Per clinic records, treated in 2014 with good response, negative viral PCR in 2018. Check acute hepatitis panel given acute hepatitis, but Hep C antibody anticipated to be positive, if remainder of acute testing ne gative, check Hep C PCR. (14) DVT prophylaxis Status: Acute Assessment & Plan: Enoxaparin- monitor closely with low platelets JEN SEXTON DO Dec 26, 2022 06:52
[2022-12-26 06:54] VITALS: BP 116/64
--- NOTE | 2022-12-26 09:12 | Tele-ICU Progress Note ---
Progress Note video rounds completed 42 y/o female admitted for alcoholic detox and possibly wiothdrawl seizures Intubated : AC 16/450/55%/5 still hypoxic on 55% receving sedation and thiamine. IMP intubated for aggitation PLAN: attempt SBT, is ABGs allow I am remotely monitoring this patient from another state. I am unable to do the bedside exam, and history/physical and pertinent information is taken from other notes in the computer and bedside staff. Focused Exam Height, Weight, BMI Height: '" Weight: lbs. oz. kg; 21.29 BMI Method: Labs Laboratory Tests 12/26/22 03:13 Results Results/Procedures Labs Laboratory Tests 12/25/22 04:10 12/26/22 03:13 Patient resulted labs reviewed. Results Labs Labs Laboratory Tests 12/25/22 11:37: Glucometer 165H 12/25/22 18:00: Glucometer 142H 12/25/22 23:13: Glucometer 137H 12/26/22 03:13: White Blood Count 3.8L, Red Blood Count 2.87L, Hemoglobin 10.5L, Hematocrit 30L, Mean Corpuscular Volume 106H, Mean Corpuscular Hemoglobin 37H, Mean Corpuscular Hemoglobin Concent 35, Red Cell Distribution Width 13.3, Platelet Count 69L, Mean Platelet Volume 11.5, Immature Granulocyte % (Auto) 0, Neutrophils (%) (Auto) 67, Lymphocytes (%) (Auto) 15, Monocytes (%) (Auto) 15H, Eosinophils (%) (Auto) 2, Basophils (%) (Auto) 1, Neutrophils # (Auto) 2.5, Lymphocytes # (Auto) 0.6L, Monocytes # (Auto) 0.6, Eosinophils # (Auto) 0.1, Basophils # (Auto) 0.0, Immature Granulocyte # (Auto) 0.0, Percent Immature Platelet Fraction 8.9H, Blood Gas Puncture Site RR, Blood Gas Patient Temperature 36.4, Arterial Blood pH 7.42, Arterial Blood Partial Pressure CO2 31L, Arterial Blood Partial Pressure O2 59L, Arterial Blood HCO3 20L, Arterial Blood Total CO2 21.0, Arterial Blood Oxygen Saturation 93L, Arterial Blood Base Excess -3.9L, Compa Test YES-POS, Blood Gas Ventilator Setting YES, Blood Gas Inspired Oxygen 55%, Sodium Level 130L, Potassium Level 4.1, Chloride Level 104, Carbon Dioxide Level 19L, Anion Gap 7, Blood Urea Nitrogen 6L, Creatinine 0.57L, Estimat Glomerular Filtration Rate 117, BUN/Creatinine Ratio 11, Glucose Level 138H, Calcium Level 7.6L, Corrected Calcium 8.8, Phosphorus Level 1.4L, Magnesium Level 1.5L, Total Bilirubin 4.5H, Aspartate Amino Transf (AST/SGOT) 96H, Alanine Aminotransferase (ALT/SGPT) 49, Alkaline Phosphatase 89, Total Protein 5.4L, Albumin 2.5L Microbiology 12/24/22 Blood Culture - Preliminary, Resulted No growth 12/23/22 MRSA Screen - Final, Complete MRSA not isolated HAMLET SOLORZANO MD Dec 26, 2022 09:12
[2022-12-26 10:47] VITALS: BP 117/62
[2022-12-26] MEDS: ENOXAPARIN 40 MG/0.4 ML (LOVENOX) SYR SC SCH (13:15)
[2022-12-26 14:43] VITALS: BP 102/64
[2022-12-26 18:46] VITALS: BP 114/64
[2022-12-26 22:28] VITALS: BP 115/64
[2022-12-27] VITALS (7 sets, daily range): BP systolic 103–116; BP diastolic 58–68
[2022-12-27] MEDS: DexMEDEtomidine 250 ML DRIP 250 ML IV SCH ×3 (00:32→20:00)
[2022-12-27] MEDS: fentaNYL DRIP PRE-MIX 250 ML IV SCH ×6 (01:55→22:05)
[2022-12-27] MEDS: MIDAZOLAM DRIP PRE-MIX 100 ML IV SCH ×2 (03:35→14:27)
[2022-12-27 04:11] LABS: EOSINOPHILS % (AUTO) 0 % (0-10); HEMOGLOBIN 9.6 g/dL (11.5-16.0); MEAN CORPUSCULAR VOLUME 106 fL (80-99); MEAN PLATELET VOLUME 12.3 fL (9.0-12.2)
[2022-12-27 04:13] LABS: BASOPHILS % (AUTO) 0 % (0-10); HEMATOCRIT 28 % (35-52); LYMPHOCYTES % (AUTO) 20 % (12-44); MEAN CORPUSCULAR HEMOGLOBIN 37 pg (25-34); MEAN CORPUSCULAR HGB CONC 35 g/dL (32-36); MONOCYTES # (AUTO) 1.1 10^3/uL (0.0-1.0); MONOCYTES % (AUTO) 23 % (0-12); NEUTROPHILS # (AUTO) 2.6 10^3/uL (1.8-7.8); NEUTROPHILS % (AUTO) 55 % (42-75); PLATELET COUNT 96 10^3/uL (130-400); WHITE BLOOD COUNT 4.7 10^3/uL (4.3-11.0)
[2022-12-27 04:21] LABS: ALBUMIN 2.1 GM/DL (3.2-4.5)
[2022-12-27 04:22] LABS: POTASSIUM 4.2 MMOL/L (3.6-5.0)
[2022-12-27 04:23] LABS: CALCIUM 7.1 MG/DL (8.5-10.1)
[2022-12-27 04:24] LABS: TOTAL PROTEIN 4.9 GM/DL (6.4-8.2)
[2022-12-27 04:26] LABS: BILIRUBIN,TOTAL 3.2 MG/DL (0.1-1.0)
[2022-12-27 04:28] LABS: CREATININE SERUM 0.63 MG/DL (0.60-1.30)
[2022-12-27 04:33] LABS: MAGNESIUM 1.6 MG/DL (1.6-2.4); PHOSPHORUS 1.8 MG/DL (2.3-4.7)
[2022-12-27 05:05] LABS: BAND NEUTROPHILS 8 %; LYMPHOCYTES % (MANUAL) 25 %; MONOCYTES % (MANUAL) 20 %; NEUTROPHILS % (MANUAL) 47 %; RBC MORPH NORMAL
--- NOTE | 2022-12-27 06:07 | Progress Note - Hospitalist ---
Subjective HPI/CC On Admission Date Seen by Provider: Dec 27, 2022 Time Seen by Provider: 09:00 Subjective/Events-last exam No major changes Remains on ventilator Hopefully will decrease sedation today Objective Exam Vital Signs Vital Signs Date Time Temp Pulse Resp B/P (MAP) Pulse Ox O2 Delivery O2 Flow Rate FiO2 12/28/22 04:00 97 Mechanical Ventilator 40 12/28/22 02:53 95 20 12/28/22 01:00 114/69 (82) 45.00 12/28/22 00:00 37.1 Capillary Refill : Less Than 3 Seconds General Appearance: No Apparent Distress, WD/WN, Chronically ill, Other (Sedated on vent) Respiratory: Lungs Clear, Normal Breath Sounds Cardiovascular: Regular Rate, Rhythm Results/Procedures Lab Patient resulted labs reviewed. Assessment/Plan Assessment and Plan Assess & Plan/Chief Complaint Severe alcohol withdrawal requiring intubation (1) Delirium tremens (2) Elevated liver enzymes (3) Alcohol withdrawal delirium (4) Hypokalemia (5) Hypomagnesemia (6) Hypophosphatemia (7) Thrombocytopenia (8) Leukopenia (9) Alcohol use disorder (10) Opioid use disorder (11) Hypertension (12) Bipolar disorder (13) History of hepatitis C (14) DVT prophylaxis JEN SEXTON DO Dec 27, 2022 06:07
[2022-12-27] MEDS: POTASSIUM BICARB 20 MEQ (EFFER-K) TABLET PO SCH (06:27)
[2022-12-27] MEDS: MAGNESIUM 1 GM/100 ML IVPB 100 ML IV SCH ×5 (06:27→10:58)
[2022-12-27] MEDS: KCL 20 MEQ TAB (K-DUR) PO SCH (06:27)
[2022-12-27] MEDS: POTASSIUM CL 10MEQ/50ML IVPB 50 ML IV SCH (06:27)
[2022-12-27] MEDS ORDERED: POTASSIUM PHOSPHATE INJ 30 MM in NS (IVPB) 250 ML IV NR (08:41)
--- NOTE | 2022-12-27 08:47 | Tele-ICU Progress Note ---
Subjective Date Seen by a Provider: Dec 27, 2022 Subjective/Events-last exam (Tele-ICU Physician , Progress Note ) Service provided via interactive audio and video telecommunications E-CARE system to a patient admitted to ICU bed in [facility]. Patient is seen today due to persistent need of ICU care Available chart/ vitals / labs / Images reviewed Video assessment done using teleICU camera, rest of exam as per RN Discussed with RN Events overnight : gastric output high on LIS , sedation cut down - diaphoretic , back to versed 10, precedex1.5 , fentanyl 350 , 16 450 +5 55 % Afebrile hemodynamically stable Respiratory - 55% I/O =POS Drips: Pressors- no VENT SETTINGS and ABG reviewed NOT CANDIDATE for SBTreviewed possible contraindications including Cardiovascular Stability /Sedation Score / FI02/PEEP / ABG / CXR/ secretions Sedation, discussed with RN, RASS - 2 versed 8-10, precedex1.5 , fentanyl 300 Hospital course: 12/23- 42 y/o F with no significant PMHx who presented to ED with c/o heavy alcohol use concerned about possible seizure at home. In ER noted to have progressively worsening agitation and was combative. INTUVBATED 12/24- PRVC 400/120/435/5, on versed 8 , precedex1.5 , fentanyl 200 , no Sz,phenobarb for 2 days 12/24-12/25- PRVC 16 450 +5 35 % on versed 810, precedex1.5 , fentanyl 300 , no Sz 12/26 - Vomited around NG - TF stopped 12/27- gastric output high on LIS , sedation cut down - diaphoretic , back to versed 10, precedex1.5 , fentanyl 350 , 16 450 +5 55 % A/P Acute respiratory failure 2/2 AMS requiring airway protection -Intubated 12/23 PRVC 16 450 +5 55 % - FIO2 NEEDS HIGHER -12/26 - Vomited around NG - TF stopped - thick l secretions , sputum from ETT - usual floura 12/23 -Will cont to wean vent as tolerated., repeat cxr - try to wean down sedation FEVER 12/24 - cx blood neg , sputum from ETT - usual floura 12/23 off abx -12/26 - Vomited around NG - TF stopped, high NG output on LIS - will check KUB Alcohol withdrawal: -Intubated for severe agitation -versed 810, precedex1.5 , fentanyl 300 , Off propofol given elevated TG 166 on admission. prn Ativan - thiamine , folate - phenobarb for 2 days 12/24- possible seizure - suspected due to ETOH withdrawal - benzo prn , no AED Hypokalemia: / hypophos -replacing Transaminitis- improving - US RUQ: Hepatomegaly with diffuse steatosis.No sonographic features of cirrhosis --ammonia and coags WNL Anemia - delutional -monitor Thrombocytopenia - presumed due to ETON , improving , Meena resumed Lines : PICC 12/24 LEFT , (Central Line Necessity Reviewed) Antony: + Nutrition: to start TF VTE Prophylaxis: meena 40 Stress Ulcer Prophylaxis: pepsid Plans in collaboration with bedside consultants and IM MDs. Discussed with RN to reach out if any questions or concerns Case and care daily discussed on multidisciplinary rounds ( RN, PharmD, N utritionist , Respiratory Therapy, tray room worker ) A total of 32 minutes of critical care time was devoted to this patient today, required to treat and/or prevent further deterioration of critical care condition ( as above ) I am remotely monitoring this patient from another state. I am unable to do the bedside exam, and history/physical and pertinent information is taken from other notes in the computer and bedside staff. Sepsis Event Evaluation Height, Weight, BMI Height: '" Weight: lbs. oz. kg; 25.61 BMI Method: Exam Exam Patient acknowledged, consented, and participated in this virtual visit which was conducted using real time audio/video Vital Signs Date Time Temp Pulse Resp B/P (MAP) Pulse Ox O2 Delivery O2 Flow Rate FiO2 12/27/22 08:38 55 12/27/22 08:00 82 109/64 (79) 94 Mechanical Ventilator 55.00 12/27/22 07:24 83 28 93 55 12/27/22 07:20 37.5 12/27/22 07:00 84 103/60 (74) 95 Mechanical Ventilator 55.00 12/27/22 07:00 83 12/27/22 06:00 84 112/61 (78) 95 Mechanical Ventilator 55.00 12/27/22 05:55 85 111/60 12/27/22 05:28 85 102/67 12/27/22 05:00 85 108/62 (77) 94 Mechanical Ventilator 55.00 12/27/22 04:32 85 102/67 12/27/22 04:00 95 Mechanical Ventilator 12/27/22 04:00 84 106/59 (75) 92 Mechanical Ventilator 55.00 12/27/22 03:35 81 20 108/58 12/27/22 03:00 80 109/57 (74) 94 Mechanical Ventilator 55.00 12/27/22 02:56 81 21 95 55 12/27/22 02:11 79 106/64 12/27/22 02:00 80 21 106/64 (78) 97 Mechanical Ventilator 55.00 12/27/22 01:55 80 12/27/22 01:01 81 12/27/22 01:00 81 12/27/22 01:00 37.4 81 19 114/59 (77) 96 Mechanical Ventilator 55.00 12/27/22 00:32 82 108/62 12/27/22 00:00 80 29 112/58 (76) 96 Mechanical Ventilator 55.00 12/26/22 23:59 95 Mechanical Ventilator 12/26/22 23:00 80 21 112/58 (76) 96 Mechanical Ventilator 55.00 12/26/22 22:37 80 108/61 12/26/22 22:28 81 21 95 55 12/26/22 22:11 80 112/55 12/26/22 22:00 80 27 112/55 (74) 96 Mechanical Ventilator 55.00 12/26/22 21:00 83 29 105/59 (74) 96 Mechanical Ventilator 55.00 12/26/22 20:00 95 Mechanical Ventilator 12/26/22 20:00 81 28 110/61 (77) 96 Mechanical Ventilator 55.00 12/26/22 19:00 82 12/26/22 19:00 82 36 112/68 (83) 96 Mechanical Ventilator 55.00 12/26/22 18:46 83 24 96 55 12/26/22 18:42 84 112/63 12/26/22 18:42 84 112/63 12/26/22 18:37 84 112/63 12/26/22 18:08 84 18 112/63 12/26/22 18:00 84 112/63 (79) 95 Mechanical Ventilator 55.00 12/26/22 17:00 84 18 116/62 (78) 95 Mechanical Ventilator 55.00 12/26/22 16:00 83 17 113/59 (75) 95 Mechanical Ventilator 55.00 12/26/22 16:00 95 Mechanical Ventilator 55 12/26/22 15:56 36.9 12/26/22 15:00 84 116/56 (77) 94 Mechanical Ventilator 55.00 12/26/22 14:53 84 116/56 12/26/22 14:43 82 25 95 55 12/26/22 14:34 80 116/62 12/26/22 14:00 80 30 110/63 (76) 94 Mechanical Ventilator 55.00 12/26/22 13:00 80 21 116/62 (72) 93 Mechanical Ventilator 55.00 12/26/22 12:28 81 12/26/22 12:00 80 22 114/62 (84) 94 Mechanical Ventilator 55.00 12/26/22 12:00 95 Mechanical Ventilator 55 12/26/22 11:54 36.6 12/26/22 11:36 80 116/62 12/26/22 11:00 80 23 110/61 (76) 94 Mechanical Ventilator 55.00 12/26/22 10:53 80 117/62 12/26/22 10:47 80 21 94 55 12/26/22 10:00 80 29 113/56 (76) 93 Mechanical Ventilator 55.00 12/26/22 09:00 79 23 110/54 (72) 92 Mechanical Ventilator 55.00 I & O 12/27/22 07:00 Intake Total 1920 ml Output Total 1975 ml Balance -55 ml Height & Weight Height: '" Weight: lbs. oz. kg; 25.61 BMI Method: General Appearance: Chronically ill, Other (Sedated on vent) HEENT: No PERRL/EOMI, No TMs Normal, No Normal ENT Inspection, No Pharynx Normal, No Moist Mucous Membranes, No Pale Conjunctivae (L), No Pale Conjunctivae (R), No Pharyngeal Erythema, No Photophobia, No Scleral Icterus ( L), No Scleral Icterus (R), No TM Abnormal (L), No TM Abnormal (R), No Tonsillar Exudate, No Tonsillar Enlargement, No Other Neck: No Full Range of Motion, No Normal Inspection, No Non Tender, No Supple, No Carotid Bruit, No JVD, No Limited Range of Motion, No Lymphadenopathy (L), No Lymphadenopathy (R), No Tender Lateral, No Tender Midline, No Thyromegaly, No Other Respiratory: Lungs Clear, Normal Breath Sounds Cardiovascular: Regular Rate, Rhythm Capillary Refill: Less Than 3 Seconds Peripheral Pulses: 2+ Dorsalis Pedis (R), 2+ Left Dors-Pedis (L) Gastrointestinal: normal bowel sounds, non tender, soft Results Lab Laboratory Tests 12/26/22 03:13 12/27/22 03:50 Assessment/Plan Assessment/Plan 1 SHELLY CLEMENT MD Dec 27, 2022 08:47
[2022-12-27] MEDS: FAMOTIDINE 20MG/2ML IV (PEPCID) IVP SCH (09:05)
[2022-12-27] MEDS: ENOXAPARIN 40 MG/0.4 ML (LOVENOX) SYR SC SCH (09:07)
[2022-12-27] MEDS ORDERED: RT-ALBUTEROL/IPRATROPIUM 3 ML (DUONEB) VIAL INH PRN (09:15)
[2022-12-27] MEDS ORDERED: RT-ALBUTEROL/IPRATROPIUM 3 ML (DUONEB) VIAL ONE (09:22)
[2022-12-27] MEDS: RT-ALBUTEROL/IPRATROPIUM 3 ML (DUONEB) VIAL INH SCH ×4 (09:38→22:00)
[2022-12-27] MEDS: LORazepam INJ 2 MG/ML (ATIVAN) VIAL IV PRN (11:17)
[2022-12-27] MEDS ORDERED: PIPERACILLIN SODIUM/TAZOBACTAM 4.5 GM in NS (IVPB) 100 ML IV NR (12:00)
--- NOTE | 2022-12-27 12:12 | Diagnostic Imaging Report ---
ABDOMEN/KUB 1VIEW INDICATION: NG tube placement COMPARISON: None available. FINDINGS AND IMPRESSION: 1. Enteric tube has tip in the proximal stomach and side port at the GE junction. 2. Nonobstructed bowel gas pattern. Dictated by: Dictated on workstation # [id number]
--- NOTE | 2022-12-27 12:17 | Diagnostic Imaging Report ---
CHEST 1 VIEW, AP/PA ONLY INDICATION: Intubation. COMPARISON: 12/25/2022. FINDINGS: ET tube has tip 5 cm above the [place]. Enteric tube terminates in the proximal stomach. Stable left PICC. Bilateral perihilar pulmonary opacities have mildly worsened. Small layering right pleural effusion is unchanged. No pneumothorax. Normal heart size. IMPRESSION: 1. Stable position of support devices. 2. Increasing perihilar opacities may be due to edema. Dictated by: Dictated on workstation # [id number]
[2022-12-27] MEDS: NS IV SCH ×3 (12:53)
[2022-12-27] MEDS: FOLIC ACID IV SCH ×3 (12:53)
[2022-12-27] MEDS: THIAMINE 100 MG IV SCH ×3 (12:53)
[2022-12-27] MEDS: inSUlin ASPART (NovoLOG) 1 UNIT/0.01 ML (CHARGE PER UNIT) SQ SCH (17:12)
[2022-12-27] MEDS: PIPERACILLIN SODIUM/TAZOBACTAM 4.5 GM in NS (IVPB) 100 ML IV SCH (18:22)
[2022-12-28] MEDS: MIDAZOLAM DRIP PRE-MIX 100 ML IV SCH ×2 (00:20→09:43)
[2022-12-28] MEDS: inSUlin ASPART (NovoLOG) 1 UNIT/0.01 ML (CHARGE PER UNIT) SQ SCH ×4 (00:23→17:41)
[2022-12-28] MEDS: fentaNYL DRIP PRE-MIX 250 ML IV SCH ×4 (02:00→19:46)
[2022-12-28 02:53] VITALS: BP 113/64
[2022-12-28] MEDS: RT-ALBUTEROL/IPRATROPIUM 3 ML (DUONEB) VIAL INH SCH ×6 (02:53→22:22)
[2022-12-28] MEDS: PIPERACILLIN SODIUM/TAZOBACTAM 4.5 GM in NS (IVPB) 100 ML IV SCH ×3 (06:07→18:41)
[2022-12-28] MEDS: DexMEDEtomidine 250 ML DRIP 250 ML IV SCH ×2 (06:09→15:11)
[2022-12-28 06:25] LABS: BASOPHILS % (AUTO) 1 % (0-10); MEAN CORPUSCULAR VOLUME 108 fL (80-99)
[2022-12-28 06:27] LABS: EOSINOPHILS % (AUTO) 0 % (0-10); HEMATOCRIT 24 % (35-52); HEMOGLOBIN 7.9 g/dL (11.5-16.0); LYMPHOCYTES # (AUTO) 0.5 10^3/uL (1.0-4.0); LYMPHOCYTES % (AUTO) 9 % (12-44); MEAN CORPUSCULAR HEMOGLOBIN 36 pg (25-34); MEAN CORPUSCULAR HGB CONC 34 g/dL (32-36); MEAN PLATELET VOLUME 12.1 fL (9.0-12.2); MONOCYTES % (AUTO) 19 % (0-12); NEUTROPHILS # (AUTO) 3.8 10^3/uL (1.8-7.8); NEUTROPHILS % (AUTO) 71 % (42-75); PLATELET COUNT 129 10^3/uL (130-400); WHITE BLOOD COUNT 5.3 10^3/uL (4.3-11.0)
[2022-12-28 06:45] LABS: ALBUMIN 2.1 GM/DL (3.2-4.5); BILIRUBIN,TOTAL 2.4 MG/DL (0.1-1.0); CREATININE SERUM 0.58 MG/DL (0.60-1.30); MAGNESIUM 2.3 MG/DL (1.6-2.4); PHOSPHORUS 1.4 MG/DL (2.3-4.7); POTASSIUM 4.6 MMOL/L (3.6-5.0)
[2022-12-28 07:24] VITALS: BP 109/65
[2022-12-28] MEDS: POTASSIUM BICARB 20 MEQ (EFFER-K) TABLET PO SCH (07:34)
[2022-12-28] MEDS: POTASSIUM CL 10MEQ/50ML IVPB 50 ML IV SCH (07:34)
[2022-12-28] MEDS: MAGNESIUM 1 GM/100 ML IVPB 100 ML IV SCH (07:34)
[2022-12-28] MEDS: KCL 20 MEQ TAB (K-DUR) PO SCH (07:35)
--- NOTE | 2022-12-28 07:36 | Tele-ICU Progress Note ---
Subjective Date Seen by a Provider: Dec 28, 2022 Time Seen by a Provider: 07:30 Subjective/Events-last exam (Tele-ICU Physician , Progress Note ) Service provided via interactive audio and video telecommunications E-CARE system to a patient admitted to ICU bed in [facility]. Patient is seen today due to persistent need of ICU care Available chart/ vitals / labs / Images reviewed Video assessment done using teleICU camera, rest of exam as per RN Discussed with RN Intubated, on AC 16 Vt 450 FiO2 40%, Hx of EtOH, d5 on vent I reviewed CXR mild bilateral haziness, ET ok Hb dropped from 9.6 to 7.9, on IV Pepcid, On IV Zosyn for presumed aspiration, was vomiting around ET, TF stopped Getting IV Fentanyl @ 250, was 300, ? Sz of home, no further Sz, on IV Versed @ 10, IV Precedex @ 1.5, RASS is -3 to -4, if lowers sedation increased WOB + secretions, being suctioned every 2 hours, whitish, yesterday greenish, Sepsis Event Evaluation Height, Weight, BMI Height: '" Weight: lbs. oz. kg; 25.88 BMI Method: Exam Exam Patient acknowledged, consented, and participated in this virtual visit which was conducted using real time audio/video Vital Signs Date Time Temp Pulse Resp B/P (MAP) Pulse Ox O2 Delivery O2 Flow Rate FiO2 12/28/22 07:24 90 20 95 40 12/28/22 07:17 95 Mechanical Ventilator 40 12/28/22 06:09 90 110/64 12/28/22 06:07 90 110/64 12/28/22 06:00 91 20 110/64 (79) 95 Mechanical Ventilator 45.00 12/28/22 06:00 90 110/64 12/28/22 05:00 93 20 107/65 (73) 94 Mechanical Ventilator 45.00 12/28/22 05:00 90 19 95 12/28/22 04:00 126 20 114/62 (79) 94 Mechanical Ventilator 45.00 12/28/22 04:00 97 Mechanical Ventilator 40 12/28/22 04:00 40 12/28/22 03:00 96 20 108/62 (75) 95 Mechanical Ventilator 45.00 12/28/22 02:53 95 20 97 45 12/28/22 02:05 90 110/64 12/28/22 02:00 90 113/65 12/28/22 02:00 99 20 110/64 (76) 97 Mechanical Ventilator 45.00 12/28/22 01:00 100 20 114/69 (82) 96 Mechanical Ventilator 45.00 12/28/22 01:00 100 12/28/22 00:20 105 13 111/65 12/28/22 00:00 108 20 112/63 (78) 94 Mechanical Ventilator 45.00 12/28/22 00:00 40 12/28/22 00:00 37.1 12/28/22 00:00 105 111/65 12/27/22 23:27 94 Mechanical Ventilator 12/27/22 23:00 95 20 113/63 (76) 94 Mechanical Ventilator 45.00 12/27/22 22:05 89 107/64 12/27/22 22:00 87 20 96 45 12/27/22 22:00 87 20 107/64 (73) 98 Mechanical Ventilator 45.00 12/27/22 21:35 89 107/64 12/27/22 21:00 89 20 108/67 (79) 98 Mechanical Ventilator 45.00 12/27/22 20:32 40 12/27/22 20:00 90 110/66 12/27/22 20:00 90 20 110/66 (80) 97 Mechanical Ventilator 55.00 12/27/22 20:00 37.9 12/27/22 20:00 97 Mechanical Ventilator 12/27/22 19:00 93 12/27/22 19:00 93 20 108/75 (87) 96 Mechanical Ventilator 55.00 12/27/22 18:51 92 21 97 50 12/27/22 18:00 87 21 106/58 (74) 99 Mechanical Ventilator 55.00 12/27/22 17:35 96 103/60 12/27/22 17:12 96 103/60 12/27/22 17:00 87 22 106/59 (69) 97 Mechanical Ventilator 55.00 12/27/22 16:57 55 12/27/22 16:26 97 Mechanical Ventilator 55 12/27/22 16:00 91 20 110/61 (76) 97 Mechanical Ventilator 55.00 12/27/22 15:17 36.6 Mechanical Ventilator 12/27/22 15:00 96 103/60 (74) 96 Mechanical Ventilator 55.00 12/27/22 14:31 85 28 99 55 12/27/22 14:27 85 29 115/59 12/27/22 14:00 82 104/60 (75) 96 Mechanical Ventilator 55.00 12/27/22 13:30 85 115/59 12/27/22 13:29 85 115/59 12/27/22 13:22 36.8 Mechanical Ventilator 55.00 12/27/22 13:07 85 115/59 12/27/22 13:00 85 105/60 (75) 98 Mechanical Ventilator 65.00 12/27/22 13:00 85 12/27/22 12:51 65 12/27/22 12:00 93 115/59 (77) 97 Mechanical Ventilator 65.00 12/27/22 11:38 94 Mechanical Ventilator 65 12/27/22 11:37 92 108/60 12/27/22 11:00 104 108/63 (78) 91 Mechanical Ventilator 65.00 12/27/22 10:31 Mechanical Ventilator 65.00 12/27/22 10:00 105 103/59 (74) 96 Mechanical Ventilator 100.00 12/27/22 09:45 94 Mechanical Ventilator 100.00 12/27/22 09:45 86 105/59 12/27/22 09:42 86 105/59 12/27/22 09:38 86 29 91 100 12/27/22 09:27 Mechanical Ventilator 65.00 12/27/22 09:08 37.5 82 94 12/27/22 09:02 82 109/64 12/27/22 09:00 81 98/56 (70) 92 Mechanical Ventilator 55.00 12/27/22 08:38 55 12/27/22 08:00 93 Mechanical Ventilator 55 12/27/22 08:00 82 109/64 (79) 94 Mechanical Ventilator 55.00 I & O 12/28/22 07:00 Intake Total 2511.2 ml Output Total 1825 ml Balance 686.2 ml Height & Weight Height: '" Weight: lbs. oz. kg; 25.88 BMI Method: General Appearance: No Apparent Distress, WD/WN, Chronically ill, Other (Sedated on vent) HEENT: No PERRL/EOMI, No TMs Normal, No Normal ENT Inspection, No Pharynx Normal, No Moist Mucous Membranes, No Pale Conjunctivae (L), No Pale Conjunctivae (R), No Pharyngeal Erythema, No Photophobia, No Scleral Icterus (L), No Scleral Icterus (R), No TM Abnormal (L), No TM Abnormal (R), No Tonsillar Exudate, No Tonsillar Enlargement, No Other Neck: No Full Range of Motion, No Normal Inspection, No Non Tender, No Supple, No Carotid Bruit, No JVD, No Limited Range of Motion, No Lymphadenopathy (L), No Lymphadenopathy (R), No Tender Lateral, No Tender Midline, No Thyromegaly, No Other Respiratory: Lungs Clear, Normal Breath Sounds, Rhonci, Other (coarse rhonchi both lungs) Cardiovascular: Regular Rate, Rhythm Capillary Refill: Less Than 3 Seconds Peripheral Pulses: 2+ Dorsalis Pedis (R), 2+ Left Dors-Pedis (L) Gastrointestinal: normal bowel sounds, non tender, soft Extremity: Pedal Edema (trace ankle edema) Neurologic/Psychiatric: Other (sedated) Results Lab Laboratory Tests 12/27/22 03:50 12/28/22 06:00 Assessment/Plan Assessment/Plan EtOH withdrawal still needs considerable sedation Acute resp failure, will continue on vent, SBT not possible Possible Sz-no Sz seen in MICU Dropping Hb, will follow and Tx if < 7 Elevated ALT and AST, continue to improve, renal function ok PICC line in [facility] [place], site looks ok Critical Care: Ventilator Management Time spent with patient (mins): 30 HAMLET BRUNER MD Dec 28, 2022 07:36
[2022-12-28] MEDS: FAMOTIDINE 20MG/2ML IV (PEPCID) IVP SCH (08:23)
--- NOTE | 2022-12-28 08:54 | Diagnostic Imaging Report ---
CHEST 1 VIEW, AP/PA ONLY Indication: Intubation. Comparison: 12/27/2022 Findings: Stable ET tube with tip 6 cm above the madison. Stable enteric tube with tip near the GE junction. Bilateral perihilar opacities are unchanged. No pleural effusion or pneumothorax. Heart is normal in size. Impression: 1. Enteric tube has tip at the GE junction. Recommend approximately 10 cm advancement. 2. ET tube has tip 6 cm above madison. Consider 1 to 2 cm of advancement. 3. Unchanged pulmonary opacities that may be due to edema. Dictated by: Dictated on workstation # [id number]
--- NOTE | 2022-12-28 09:20 | Progress Note - Hospitalist ---
Subjective HPI/CC On Admission Date Seen by Provider: Dec 28, 2022 Time Seen by Provider: 09:15 Subjective/Events-last exam No significant changes FiO2 of 40% today Trying to wean off sedation Lungs are coarse Objective Exam Vital Signs Vital Signs Date Time Temp Pulse Resp B/P (MAP) Pulse Ox O2 Delivery O2 Flow Rate FiO2 12/28/22 19:46 86 122/71 12/28/22 19:44 36.5 12/28/22 19:04 25 95 40 12/28/22 18:00 Mechanical Ventilator 40.00 Capillary Refill : Less Than 3 Seconds General Appearance: Chronically ill, Other (Sedated and intubated) Respiratory: Crackles, Decreased Breath Sounds Cardiovascular: Regular Rate, Rhythm Results/Procedures Lab Laboratory Tests 12/28/22 06:00 Patient resulted labs reviewed. Assessment/Plan Assessment and Plan Assess & Plan/Chief Complaint Severe alcohol withdrawal requiring intubation (1) Delirium tremens (2) Elevated liver enzymes (3) Alcohol withdrawal delirium (4) Hypokalemia (5) Hypomagnesemia (6) Hypophosphatemia (7) Thrombocytopenia (8) Leukopenia (9) Alcohol use disorder (10) Opioid use disorder (11) Hypertension (12) Bipolar disorder (13) History of hepatitis C (14) DVT prophylaxis Critical Care Ventilator Management JEN SEXTON DO Dec 28, 2022 09:20
[2022-12-28] MEDS: ENOXAPARIN 40 MG/0.4 ML (LOVENOX) SYR SC SCH (09:27)
[2022-12-28 10:30] VITALS: BP 117/63
[2022-12-28] MEDS: NS IV SCH ×3 (12:55)
[2022-12-28] MEDS: THIAMINE 100 MG IV SCH ×3 (12:55)
[2022-12-28] MEDS: FOLIC ACID IV SCH ×3 (12:55)
[2022-12-28 14:35] VITALS: BP 117/68
[2022-12-28 19:04] VITALS: BP 123/71
[2022-12-28 22:22] VITALS: BP 135/74
[2022-12-29] MEDS: RT-ALBUTEROL/IPRATROPIUM 3 ML (DUONEB) VIAL INH SCH ×6 (01:17→22:14)
[2022-12-29 01:18] VITALS: BP 114/86
[2022-12-29] MEDS: PIPERACILLIN SODIUM/TAZOBACTAM 4.5 GM in NS (IVPB) 100 ML IV SCH ×3 (01:36→18:32)
[2022-12-29] MEDS: DexMEDEtomidine 250 ML DRIP 250 ML IV SCH ×2 (01:37→21:25)
[2022-12-29] MEDS: MIDAZOLAM DRIP PRE-MIX 100 ML IV SCH ×2 (01:51→23:52)
[2022-12-29 04:48] LABS: BASOPHILS % (AUTO) 1 % (0-10); EOSINOPHILS % (AUTO) 0 % (0-10); HEMATOCRIT 25 % (35-52); HEMOGLOBIN 8.2 g/dL (11.5-16.0); LYMPHOCYTES # (AUTO) 0.6 10^3/uL (1.0-4.0); LYMPHOCYTES % (AUTO) 9 % (12-44); MEAN CORPUSCULAR HEMOGLOBIN 37 pg (25-34); MEAN CORPUSCULAR HGB CONC 33 g/dL (32-36); MEAN CORPUSCULAR VOLUME 110 fL (80-99); MEAN PLATELET VOLUME 12.9 fL (9.0-12.2); MONOCYTES # (AUTO) 0.6 10^3/uL (0.0-1.0); MONOCYTES % (AUTO) 8 % (0-12); NEUTROPHILS # (AUTO) 6.1 10^3/uL (1.8-7.8); NEUTROPHILS % (AUTO) 82 % (42-75); PLATELET COUNT 164 10^3/uL (130-400); WHITE BLOOD COUNT 7.4 10^3/uL (4.3-11.0)
[2022-12-29 05:09] LABS: ALBUMIN 2.3 GM/DL (3.2-4.5); BILIRUBIN,TOTAL 2.4 MG/DL (0.1-1.0); CALCIUM 7.9 MG/DL (8.5-10.1); CREATININE SERUM 0.56 MG/DL (0.60-1.30); POTASSIUM 4.5 MMOL/L (3.6-5.0); TOTAL PROTEIN 5.5 GM/DL (6.4-8.2)
[2022-12-29] MEDS: POTASSIUM BICARB 20 MEQ (EFFER-K) TABLET PO SCH (05:19)
[2022-12-29] MEDS: KCL 20 MEQ TAB (K-DUR) PO SCH (05:19)
[2022-12-29] MEDS: MAGNESIUM 1 GM/100 ML IVPB 100 ML IV SCH (05:19)
[2022-12-29] MEDS: POTASSIUM CL 10MEQ/50ML IVPB 50 ML IV SCH (05:19)
--- NOTE | 2022-12-29 05:57 | Progress Note - Hospitalist ---
Subjective HPI/CC On Admission Date Seen by Provider: Dec 29, 2022 Time Seen by Provider: 11:00 Subjective/Events-last exam Still on ventilator Weaning off Versed drip Reviewed meds and labs Review of Systems General: Fatigue, Malaise Objective Exam Vital Signs Vital Signs Date Time Temp Pulse Resp B/P (MAP) Pulse Ox O2 Delivery O2 Flow Rate FiO2 12/29/22 20:32 40 12/29/22 20:00 91 Mechanical Ventilator 12/29/22 19:59 36.2 12/29/22 18:37 101 24 12/29/22 18:00 134/99 (111) 30.00 Capillary Refill : Less Than 3 Seconds General Appearance: No Apparent Distress, WD/WN, Chronically ill, Other (Sedated and ventilated) Respiratory: Crackles, Decreased Breath Sounds Cardiovascular: Regular Rate, Rhythm Results/Procedures Lab Laboratory Tests 12/29/22 04:15 Patient resulted labs reviewed. Assessment/Plan Assessment and Plan Assess & Plan/Chief Complaint Severe alcohol withdrawal requiring intubation (1) Delirium tremens (2) Elevated liver enzymes (3) Alcohol withdrawal delirium (4) Hypokalemia (5) Hypomagnesemia (6) Hypophosphatemia (7) Thrombocytopenia (8) Leukopenia (9) Alcohol use disorder (10) Opioid use disorder (11) Hypertension (12) Bipolar disorder (13) History of hepatitis C (14) DVT prophylaxis Supportive care Ventilator Critical Care Ventilator Management JEN SEXTON DO Dec 29, 2022 05:57
[2022-12-29] MEDS: inSUlin ASPART (NovoLOG) 1 UNIT/0.01 ML (CHARGE PER UNIT) SQ SCH ×4 (06:37→18:05)
[2022-12-29 07:34] VITALS: BP 120/94
--- NOTE | 2022-12-29 08:20 | Tele-ICU Progress Note ---
Subjective Date Seen by a Provider: Dec 29, 2022 Time Seen by a Provider: 08:19 Subjective/Events-last exam (Tele-ICU Physician , Progress Note ) Service provided via interactive audio and video telecommunications E-CARE system to a patient admitted to ICU bed in [facility]. Patient is seen today due to persistent need of ICU care Available chart/ vitals / labs / Images reviewed Video assessment done using teleICU camera, rest of exam as per RN Discussed with RN Events overnight : gastric output high on LIS , sedation cut down - diaphoretic , back to versed 10, precedex1.5 , fentanyl 350 , 16 450 +5 55 % Afebrile hemodynamically stable Respiratory - 55% I/O =POS Drips: Pressors- no VENT SETTINGS and ABG reviewed NOT CANDIDATE for SBTreviewed possible contraindications including Cardiovascular Stability /Sedation Score / FI02/PEEP / ABG / CXR/ secretions Sedation, discussed with RN, RASS - 2 versed OFF , precedex1.5 , fentanyl OFF Hospital course: 12/23- 42 y/o F with no significant PMHx who presented to ED with c/o heavy alcohol use concerned about possible seizure at home. In ER noted to have progressively worsening agitation and was combative. INTUVBATED 12/24- PRVC 400/120/435/5, on versed 8 , precedex1.5 , fentanyl 200 , no Sz,phenobarb for 2 days 12/24-12/25- PRVC 16 450 +5 35 % on versed 810, precedex1.5 , fentanyl 300 , no Sz 12/26 - Vomited around NG - TF stopped 12/27- gastric output high on LIS , sedation cut down - diaphoretic , back to versed 10, precedex1.5 , fentanyl 350 , 16 450 +5 55 % 12/29-12/27- g sedation cut down - tachycardic , back to versed 10, precedex1.5 , fentanyl 350 , 16 450 +5 55 % A/P Acute respiratory failure 2/2 AMS requiring airway protection -Intubated 12/23 PRVC 16 450 +5 40% - thick l secretions , sputum from ETT - usual floura 12/23 -Will cont to wean vent as tolerated., - try to wean down sedation , RASS - 2 versed OFF , precedex1.5 , fentanyl OFF- started metoptolol , cont CIWA FEVER 12/24 - cx blood neg , sputum from ETT - usual floura 12/23 RLL suspected after aspiration -12/26 - Vomited around NG - TF stopped - zosyn started -12/26 - Vomited around NG - TF stopped, high NG output on LIS - will check KUB Alcohol withdrawal: -Intubated for severe agitation -versed 810, precedex1.5 , fentanyl 300 , Off propofol given elevated TG 166 on admission. prn Ativan - thiamine , folate - phenobarb for 2 days 12/24- possible seizure - suspected due to ETOH withdrawal - benzo prn , no AED Hypokalemia: / hypophos -replacing Transaminitis- improving - US RUQ: Hepatomegaly with diffuse steatosis.No sonographic features of cirrhosis --ammonia and coags WNL Anemia - delutional -monitor stable Thrombocytopenia - presumed due to ETON , RESOLVED , Meena resumed Lines : PICC 12/24 LEFT , (Central Line Necessity Reviewed) Antony: + Nutrition: TF VTE Prophylaxis: meena 40 Stress Ulcer Prophylaxis: pepsid Plans in collaboration with bedside consultants and IM MDs. Discussed with RN to reach out if any questions or concerns Case and care daily discussed on multidisciplinary rounds ( RN, PharmD, Medicine Assistant , Respiratory Therapy, load out worker ) A total of 32 minutes of critical care time was devoted to this patient today, required to treat and/or prevent further deterioration of critical care condition ( as above ) I am remotely monitoring this patient from another state. I am unable to do the bedside exam, and history/physical and pertinent information is taken from other notes in the computer and bedside staff. Sepsis Event Evaluation Height, Weight, BMI Height: '" Weight: lbs. oz. kg; 25.95 BMI Method: Exam Exam Patient acknowledged, consented, and participated in this virtual visit which was conducted using real time audio/video Vital Signs Date Time Temp Pulse Resp B/P (MAP) Pulse Ox O2 Delivery O2 Flow Rate FiO2 12/29/22 08:02 37.9 12/29/22 07:49 30 12/29/22 07:34 113 28 97 40 12/29/22 06:00 93 20 114/90 (98) 97 Mechanical Ventilator 40.00 12/29/22 05:37 92 118/87 12/29/22 05:00 94 20 114/88 (97) 98 Mechanical Ventilator 40.00 12/29/22 04:00 96 Mechanical Ventilator 40 12/29/22 04:00 95 20 123/85 (98) 97 Mechanical Ventilator 40.00 12/29/22 04:00 40 12/29/22 03:48 36.2 12/29/22 03:00 100 20 123/91 (102) 96 Mechanical Ventilator 40.00 12/29/22 02:00 106 20 124/89 (101) 95 Mechanical Ventilator 40.00 12/29/22 01:51 108 20 130/90 12/29/22 01:37 111 122/85 12/29/22 01:18 110 30 95 40 12/29/22 01:00 117 20 120/88 (99) 95 Mechanical Ventilator 40.00 12/29/22 01:00 117 12/29/22 00:06 36.2 12/29/22 00:00 113 20 136/85 (102) 96 Mechanical Ventilator 40.00 12/29/22 00:00 40 12/28/22 23:46 113 136/85 12/28/22 23:27 97 Mechanical Ventilator 40 12/28/22 23:00 96 20 132/73 (92) 95 Mechanical Ventilator 40.00 12/28/22 22:22 107 30 95 40 12/28/22 22:00 101 20 133/80 (97) 96 Mechanical Ventilator 40.00 12/28/22 21:00 81 20 121/70 (87) 97 Mechanical Ventilator 40.00 12/28/22 20:30 40 12/28/22 20:00 84 20 120/74 (89) 96 Mechanical Ventilator 40.00 12/28/22 20:00 96 Mechanical Ventilator 40 12/28/22 19:46 86 122/71 12/28/22 19:44 36.5 12/28/22 19:16 82 123/71 12/28/22 19:04 82 25 95 40 12/28/22 19:00 80 12/28/22 19:00 80 20 123/71 (88) 95 Mechanical Ventilator 40.00 12/28/22 18:29 101 29 116/68 12/28/22 18:00 83 23 115/67 (83) 97 Mechanical Ventilator 40.00 12/28/22 17:06 84 23 118/68 12/28/22 17:00 84 22 118/68 (85) 95 Mechanical Ventilator 40.00 12/28/22 16:42 84 112/64 12/28/22 16:20 85 24 119/66 12/28/22 16:17 40 12/28/22 16:16 94 Mechanical Ventilator 40 12/28/22 16:00 97 22 121/75 (90) 97 Mechanical Ventilator 40.00 12/28/22 15:51 36.7 12/28/22 15:40 85 21 115/69 12/28/22 15:11 85 117/68 12/28/22 15:00 86 21 114/63 (80) 95 Mechanical Ventilator 40.00 12/28/22 14:35 85 21 95 40 12/28/22 14:16 85 22 111/68 12/28/22 14:00 86 22 108/69 (82) 100 Mechanical Ventilator 40.00 12/28/22 13:58 90 22 115/67 12/28/22 13:28 90 116/66 12/28/22 13:13 90 116/66 12/28/22 13:00 90 18 116/66 (83) 95 Mechanical Ventilator 40.00 12/28/22 12:37 92 118/67 12/28/22 12:36 40 12/28/22 12:24 89 12/28/22 12:00 91 17 118/67 (84) 96 Mechanical Ventilator 40.00 12/28/22 11:42 37.4 12/28/22 11:40 94 Mechanical Ventilator 40 12/28/22 11:25 92 116/64 12/28/22 11:00 93 20 111/67 (82) 95 Mechanical Ventilator 40.00 12/28/22 10:30 90 19 94 40 12/28/22 10:13 97 116/63 12/28/22 10:13 97 116/63 12/28/22 10:00 100 29 124/76 (92) 96 Mechanical Ventilator 40.00 12/28/22 09:43 97 116/63 12/28/22 09:43 97 17 116/63 12/28/22 09:00 93 18 113/67 (82) 94 Mechanical Ventilator 40.00 I & O 12/29/22 07:00 Intake Total 2451.2 ml Output Total 1500 ml Balance 951.2 ml Height & Weight Height: '" Weight: lbs. oz. kg; 25.95 BMI Method: General Appearance: Chronically ill, Other (Sedated and intubated) HEENT: No PERRL/EOMI, No TMs Normal, No Normal ENT Inspection, No Pharynx Normal, No Moist Mucous Membranes, No Pale Conjunctivae (L), No Pale Conjunctivae (R), No Pharyngeal Erythema, No Photophobia, No Scleral Icterus (L), No Scleral Icterus (R), No TM Abnormal (L), No TM Abnormal (R), No Tonsillar Exudate, No Tonsillar Enlargement, No Other Neck: No Full Range of Motion, No Normal Inspection, No Non Tender, No Supple, No Carotid Bruit, No JVD, No Limited Range of Motion, No Lymphadenopathy (L), No Lymphadenopathy (R), No Tender Lateral, No Tender Midline, No Thyromegaly, No Other Respiratory: Crackles, Decreased Breath Sounds Cardiovascular: Regular Rate, Rhythm Capillary Refill: Less Than 3 Seconds Peripheral Pulses: 2+ Dorsalis Pedis (R), 2+ Left Dors-Pedis (L) Gastrointestinal: normal bowel sounds, non tender, soft Extremity: Pedal Edema (trace ankle edema) Neurologic/Psychiatric: Other (sedated) Results Lab Laboratory Tests 12/28/22 06:00 12/29/22 04:15 Assessment/Plan Assessment/Plan 1 SHELLY CLEMENT MD Dec 29, 2022 08:20
[2022-12-29] MEDS: ENOXAPARIN 40 MG/0.4 ML (LOVENOX) SYR SC SCH (08:25)
[2022-12-29] MEDS: LORazepam INJ 2 MG/ML (ATIVAN) VIAL IV PRN ×4 (08:25→23:24)
[2022-12-29] MEDS: FAMOTIDINE 20MG/2ML IV (PEPCID) IVP SCH (08:25)
[2022-12-29] MEDS: meTOprolol 5 MG/5 ML (LOPRESSOR) VIAL IV PRN (08:25)
[2022-12-29] MEDS ORDERED: FUROSEMIDE 40 MG/4 ML INJ (LASIX) IVP NR (08:30)
[2022-12-29 10:58] VITALS: BP 114/86
[2022-12-29] MEDS: NS IV SCH ×3 (15:32)
[2022-12-29] MEDS: FOLIC ACID IV SCH ×3 (15:32)
[2022-12-29] MEDS: THIAMINE 100 MG IV SCH ×3 (15:32)
[2022-12-29] MEDS ORDERED: MILK OF MAGNESIA 400 MG/5 ML 30 ML UDC PO NR (15:45)
[2022-12-29 15:50] VITALS: BP 137/103
[2022-12-29 18:37] VITALS: BP 134/107
[2022-12-29 22:15] VITALS: BP 123/94
[2022-12-30] MEDS: inSUlin ASPART (NovoLOG) 1 UNIT/0.01 ML (CHARGE PER UNIT) SQ SCH ×4 (00:42→18:48)
[2022-12-30] MEDS: PIPERACILLIN SODIUM/TAZOBACTAM 4.5 GM in NS (IVPB) 100 ML IV SCH ×3 (02:00→18:46)
[2022-12-30 02:55] VITALS: BP 138/104
[2022-12-30] MEDS: RT-ALBUTEROL/IPRATROPIUM 3 ML (DUONEB) VIAL INH SCH ×6 (02:55→22:35)
[2022-12-30] MEDS: LORazepam INJ 2 MG/ML (ATIVAN) VIAL IV PRN ×3 (05:10→18:46)
[2022-12-30 05:32] LABS: BASOPHILS % (AUTO) 0 % (0-10); EOSINOPHILS # (AUTO) 0.1 10^3/uL (0.0-0.3); EOSINOPHILS % (AUTO) 1 % (0-10); HEMATOCRIT 25 % (35-52); HEMOGLOBIN 8.2 g/dL (11.5-16.0); LYMPHOCYTES # (AUTO) 0.8 10^3/uL (1.0-4.0); LYMPHOCYTES % (AUTO) 6 % (12-44); MEAN CORPUSCULAR HEMOGLOBIN 36 pg (25-34); MEAN CORPUSCULAR HGB CONC 33 g/dL (32-36); MEAN CORPUSCULAR VOLUME 110 fL (80-99); MEAN PLATELET VOLUME 12.5 fL (9.0-12.2); MONOCYTES # (AUTO) 0.8 10^3/uL (0.0-1.0); MONOCYTES % (AUTO) 6 % (0-12); NEUTROPHILS # (AUTO) 11.5 10^3/uL (1.8-7.8); NEUTROPHILS % (AUTO) 86 % (42-75); PLATELET COUNT 283 10^3/uL (130-400); WHITE BLOOD COUNT 13.4 10^3/uL (4.3-11.0)
[2022-12-30 05:41] LABS: ALBUMIN 2.6 GM/DL (3.2-4.5); POTASSIUM 4.2 MMOL/L (3.6-5.0)
[2022-12-30 05:42] LABS: CALCIUM 8.6 MG/DL (8.5-10.1)
[2022-12-30 05:43] LABS: TOTAL PROTEIN 5.9 GM/DL (6.4-8.2)
[2022-12-30 05:45] LABS: BILIRUBIN,TOTAL 2.2 MG/DL (0.1-1.0)
[2022-12-30 05:47] LABS: CREATININE SERUM 0.57 MG/DL (0.60-1.30)
[2022-12-30 05:58] LABS: PHOSPHORUS 1.5 MG/DL (2.3-4.7)
[2022-12-30 06:00] LABS: MAGNESIUM 1.9 MG/DL (1.6-2.4)
--- NOTE | 2022-12-30 06:12 | Progress Note - Hospitalist ---
Subjective HPI/CC On Admission Date Seen by Provider: Dec 30, 2022 Time Seen by Provider: 11:00 Subjective/Events-last exam Patient still breathing over the vent Lungs are coarse Supportive care we will continue Objective Exam Vital Signs Vital Signs Date Time Temp Pulse Resp B/P (MAP) Pulse Ox O2 Delivery O2 Flow Rate FiO2 12/31/22 04:32 30 12/31/22 04:00 94 Mechanical Ventilator 12/31/22 04:00 97 27 127/91 (103) 35.00 12/31/22 03:01 36.7 Capillary Refill : Less Than 3 Seconds General Appearance: Chronically ill, Other (Mild tachypnea) Respiratory: Accessory Muscle Use, Crackles, Decreased Breath Sounds Cardiovascular: Regular Rate, Rhythm Results/Procedures Lab Laboratory Tests 12/31/22 04:20 Patient resulted labs reviewed. Assessment/Plan Assessment and Plan Assess & Plan/Chief Complaint Severe alcohol withdrawal requiring intubation (1) Delirium tremens (2) Elevated liver enzymes (3) Alcohol withdrawal delirium (4) Hypokalemia (5) Hypomagnesemia (6) Hypophosphatemia (7) Thrombocytopenia (8) Leukopenia (9) Alcohol use disorder (10) Opioid use disorder (11) Hypertension (12) Bipolar disorder (13) History of hepatitis C (14) DVT prophylaxis Supportive care Ventilator Critical Care Ventilator Management JEN SEXTON DO Dec 30, 2022 06:12
[2022-12-30] MEDS: MAGNESIUM 1 GM/100 ML IVPB 100 ML IV SCH (06:22)
[2022-12-30] MEDS: POTASSIUM BICARB 20 MEQ (EFFER-K) TABLET PO SCH (06:22)
[2022-12-30] MEDS: KCL 20 MEQ TAB (K-DUR) PO SCH (06:22)
[2022-12-30] MEDS: POTASSIUM CL 10MEQ/50ML IVPB 50 ML IV SCH (06:22)
[2022-12-30 06:30] LABS: ANISOCYTOSIS SLIGHT; EOSINOPHILS % (MANUAL) 2 %; LYMPHOCYTES % (MANUAL) 7 %; MONOCYTES % (MANUAL) 4 %; NEUTROPHILS % (MANUAL) 87 %
[2022-12-30 06:31] LABS: STOMATOCYTES SLIGHT
[2022-12-30 07:58] VITALS: BP 119/83
[2022-12-30] MEDS: DexMEDEtomidine 250 ML DRIP 250 ML IV SCH ×2 (07:58→18:47)
--- NOTE | 2022-12-30 08:29 | Tele-ICU Progress Note ---
Subjective Date Seen by a Provider: Dec 30, 2022 Time Seen by a Provider: 08:24 Subjective/Events-last exam (Tele-ICU Physician , Progress Note ) Service provided via interactive audio and video telecommunications E-CARE system to a patient admitted to ICU bed in [facility]. Patient is seen today due to persistent need of ICU care Available chart/ vitals / labs / Images reviewed Video assessment done using teleICU camera, rest of exam as per RN Remains on vent AC16, Vt 450, FiO2 35%, PEEP 5 Off IV Fentanyl @ , IV Precedex,@ 1.0was on IV Versed @ 4 Working to breathe but SpO2 30% Last CXR showed bilateral basilar opacities, On IV Zosyn Sepsis Event Evaluation Height, Weight, BMI Height: '" Weight: lbs. oz. kg; 25.95 BMI Method: Exam Exam Patient acknowledged, consented, and participated in this virtual visit which was conducted using real time audio/video Vital Signs Date Time Temp Pulse Resp B/P (MAP) Pulse Ox O2 Delivery O2 Flow Rate FiO2 12/30/22 07:58 101 26 97 35 12/30/22 07:58 105 119/81 12/30/22 07:45 36.3 12/30/22 06:27 109 26 93 12/30/22 06:00 96 27 117/82 (94) 94 Mechanical Ventilator 35.00 12/30/22 05:00 109 26 128/88 (101) 93 Mechanical Ventilator 35.00 12/30/22 04:00 35 12/30/22 04:00 37.1 112 26 123/88 (100) 92 Mechanical Ventilator 35.00 12/30/22 04:00 91 Mechanical Ventilator 40 12/30/22 03:00 100 27 126/89 (101) 100 Mechanical Ventilator 35.00 12/30/22 02:55 101 28 100 35 12/30/22 02:00 99 27 120/96 (104) 97 Mechanical Ventilator 35.00 12/30/22 01:25 105 123/86 12/30/22 01:00 107 28 126/88 (101) 98 Mechanical Ventilator 35.00 12/30/22 01:00 105 12/30/22 00:00 35 12/30/22 00:00 36.9 105 26 123/86 (98) 97 Mechanical Ventilator 35.00 12/29/22 23:52 105 27 123/94 12/29/22 23:37 91 Mechanical Ventilator 40 12/29/22 23:00 108 29 124/91 (102) 96 Mechanical Ventilator 35.00 12/29/22 22:21 Mechanical Ventilator 35.00 12/29/22 22:15 105 27 98 40 12/29/22 22:00 101 29 123/94 (104) 96 Mechanical Ventilator 40.00 12/29/22 21:25 101 134/107 12/29/22 21:00 103 26 121/85 (97) 98 Mechanical Ventilator 40.00 12/29/22 20:32 40 12/29/22 20:00 91 Mechanical Ventilator 40 12/29/22 20:00 103 27 135/93 (107) 97 Mechanical Ventilator 40.00 12/29/22 19:59 36.2 12/29/22 19:00 111 25 125/92 (103) 98 Mechanical Ventilator 40.00 12/29/22 19:00 110 12/29/22 18:37 101 24 99 40 12/29/22 18:00 87 23 134/99 (111) 98 Mechanical Ventilator 30.00 12/29/22 17:00 98 26 137/99 (112) 97 Mechanical Ventilator 30.00 12/29/22 16:32 40 12/29/22 16:00 85 26 126/95 (105) 97 Mechanical Ventilator 30.00 12/29/22 16:00 91 Mechanical Ventilator 40 12/29/22 15:50 83 21 99 40 12/29/22 15:44 36.2 12/29/22 15:00 102 23 146/110 (122) 99 Mechanical Ventilator 30.00 12/29/22 14:00 94 23 130/94 (106) 99 Mechanical Ventilator 30.00 12/29/22 13:15 102 12/29/22 13:00 104 23 123/91 (102) 97 Mechanical Ventilator 30.00 12/29/22 12:32 40 12/29/22 12:00 117 26 130/98 (109) 97 Mechanical Ventilator 30.00 12/29/22 12:00 91 Mechanical Ventilator 40 12/29/22 11:18 37.1 12/29/22 11:17 37.1 12/29/22 11:00 112 22 114/86 (95) 97 Mechanical Ventilator 30.00 6/28/23 10:58 113 26 97 40 12/29/22 10:00 115 27 128/99 (109) 96 Mechanical Ventilator 30.00 12/29/22 09:00 117 26 119/95 (103) 95 Mechanical Ventilator 30.00 12/29/22 08:32 40 I & O 12/30/22 07:00 Intake Total 2050 ml Output Total 3250 ml Balance -1200 ml Height & Weight Height: '" Weight: lbs. oz. kg; 25.95 BMI Method: General Appearance: No Apparent Distress, WD/WN, Chronically ill, Mild Distress, Other (Sedated and ventilated) HEENT: No PERRL/EOMI, No TMs Normal, No Normal ENT Inspection, No Pharynx Normal, No Moist Mucous Membranes, No Pale Conjunctivae (L), No Pale Conjunctivae (R), No Pharyngeal Erythema, No Photophobia, No Scleral Icterus (L), No Scleral Icterus (R), No TM Abnormal (L), No TM Abnormal (R), No Tonsillar Exudate, No Tonsillar Enlargement, No Other Neck: No Full Range of Motion, No Normal Inspection, No Non Tender, No Supple, No Carotid Bruit, No JVD, No Limited Range of Motion, No Lymphadenopathy (L), No Lymphadenopathy (R), No Tender Lateral, No Tender Midline, No Thyromegaly, No Other Respiratory: Accessory Muscle Use, Crackles, Decreased Breath Sounds, Rhonci Cardiovascular: Regular Rate, Rhythm, Tachycardia Capillary Refill: Less Than 3 Seconds Peripheral Pulses: 2+ Dorsalis Pedis (R), 2+ Left Dors-Pedis (L) Gastrointestinal: normal bowel sounds, non tender, soft, other (abd is distended, got MOM) Extremity: Pedal Edema (trace ankle edema) Neurologic/Psychiatric: Other (sedated) Results Lab Laboratory Tests 12/29/22 04:15 12/30/22 05:00 Assessment/Plan Assessment/Plan Acute resp failure, PNA, will continue on IV Zosyn EtOH with drawal ? Sz, no further Sz WIll raise vent rate back to 20, get CXR and sputum culture as secretions yellowish Critical Care: Ventilator Management Time spent with patient (mins): 30 HAMLET BRUNER MD Dec 30, 2022 08:29
[2022-12-30] MEDS: ENOXAPARIN 40 MG/0.4 ML (LOVENOX) SYR SC SCH (10:03)
[2022-12-30] MEDS: FAMOTIDINE 20MG/2ML IV (PEPCID) IVP SCH (10:03)
[2022-12-30 11:02] VITALS: BP 126/83
--- NOTE | 2022-12-30 11:27 | Diagnostic Imaging Report ---
Clinical data caves: Patient increased work of breathing. EXAM: Portable chest x-ray upright view. Comparisons: Chest x-ray dated 12/28/2022. FINDINGS: A ET tube is seen in stable good position. Feeding tube is seen which is slightly advanced and now in good position. There is slight increase airspace opacities involving the left main upper lung field region which has progressed. There is the appearance of slight increased lucency in left lung base, but this likely is related to improved aeration of the lung bases and superimposed gastric bubble. There is no pneumothorax or pleural effusion seen. Pulmonary vasculature and cardiac silhouette within normal limits. Bones show no significant abnormality. There is interval placement of a left PICC line with tip in the midsuperior vena cava region. IMPRESSION: 1: There is interval increased airspace opacification involving left midlung field left upper lobe which may represent lung infiltrate. 2: There is interval improved positioning of the feeding tube. 3: There is no pneumothorax. 4: The remainder of this exam shows no significant interval change compared to the prior study of comparison. Dictated by: Dictated on workstation # [id number]
--- NOTE | 2022-12-30 14:55 | Progress Note ---
Standard Progress Note Progress Notes/Assess & Plan Date Seen by a Provider: Dec 30, 2022 Time Seen by a Provider: 14:53 Progress/Assessment & Plan checked CXR, shows increased infiltrate left mid lung, This with increased WOB, yellowish secretions makes me suspect has new VAP, Have increased AC rate to 20, sputum culutre pending For now continue on HAMLET Pathak MD Dec 30, 2022 14:54
[2022-12-30] MEDS: MIDAZOLAM DRIP PRE-MIX 100 ML IV SCH (15:01)
[2022-12-30] MEDS: THIAMINE 100 MG IV SCH ×3 (15:23)
[2022-12-30] MEDS: FOLIC ACID IV SCH ×3 (15:23)
[2022-12-30] MEDS: NS IV SCH ×3 (15:23)
[2022-12-30 15:27] VITALS: BP 117/81
[2022-12-30 18:55] VITALS: BP 114/90
[2022-12-30 22:31] VITALS: BP 123/87
[2022-12-31] MEDS: inSUlin ASPART (NovoLOG) 1 UNIT/0.01 ML (CHARGE PER UNIT) SQ SCH ×4 (00:02→18:23)
[2022-12-31] MEDS: LORazepam INJ 2 MG/ML (ATIVAN) VIAL IV PRN ×5 (00:14→20:22)
[2022-12-31 02:24] VITALS: BP 128/85
[2022-12-31] MEDS: RT-ALBUTEROL/IPRATROPIUM 3 ML (DUONEB) VIAL INH SCH ×6 (02:24→22:16)
[2022-12-31] MEDS: DexMEDEtomidine 250 ML DRIP 250 ML IV SCH ×3 (02:57→22:55)
[2022-12-31] MEDS: MIDAZOLAM DRIP PRE-MIX 100 ML IV SCH ×3 (02:57→22:55)
[2022-12-31] MEDS: PIPERACILLIN SODIUM/TAZOBACTAM 4.5 GM in NS (IVPB) 100 ML IV SCH ×3 (02:57→18:23)
[2022-12-31 04:30] LABS: BASOPHILS # (AUTO) 0.1 10^3/uL (0.0-0.1); BASOPHILS % (AUTO) 0 % (0-10); EOSINOPHILS # (AUTO) 0.1 10^3/uL (0.0-0.3); EOSINOPHILS % (AUTO) 1 % (0-10); HEMATOCRIT 24 % (35-52); HEMOGLOBIN 7.9 g/dL (11.5-16.0); LYMPHOCYTES # (AUTO) 1.1 10^3/uL (1.0-4.0); LYMPHOCYTES % (AUTO) 8 % (12-44); MEAN CORPUSCULAR HEMOGLOBIN 37 pg (25-34); MEAN CORPUSCULAR HGB CONC 33 g/dL (32-36); MEAN CORPUSCULAR VOLUME 111 fL (80-99); MEAN PLATELET VOLUME 11.8 fL (9.0-12.2); MONOCYTES # (AUTO) 0.8 10^3/uL (0.0-1.0); MONOCYTES % (AUTO) 5 % (0-12); NEUTROPHILS # (AUTO) 12.3 10^3/uL (1.8-7.8); NEUTROPHILS % (AUTO) 84 % (42-75); PLATELET COUNT 365 10^3/uL (130-400); WHITE BLOOD COUNT 14.5 10^3/uL (4.3-11.0)
[2022-12-31 04:46] LABS: POTASSIUM 4.5 MMOL/L (3.6-5.0)
[2022-12-31 04:52] LABS: CREATININE SERUM 0.55 MG/DL (0.60-1.30)
[2022-12-31 04:54] LABS: MAGNESIUM 1.8 MG/DL (1.6-2.4)
[2022-12-31 04:58] LABS: PHOSPHORUS 0.8 MG/DL (2.3-4.7)
[2022-12-31 06:54] VITALS: BP 128/86
[2022-12-31] MEDS: KCL 20 MEQ TAB (K-DUR) PO SCH (06:57)
[2022-12-31] MEDS: MAGNESIUM 1 GM/100 ML IVPB 100 ML IV SCH (06:57)
[2022-12-31] MEDS: POTASSIUM BICARB 20 MEQ (EFFER-K) TABLET PO SCH (06:57)
[2022-12-31] MEDS: POTASSIUM CL 10MEQ/50ML IVPB 50 ML IV SCH (06:57)
[2022-12-31] MEDS: FAMOTIDINE 20MG/2ML IV (PEPCID) IVP SCH (07:49)
[2022-12-31] MEDS: meTOprolol 5 MG/5 ML (LOPRESSOR) VIAL IV PRN ×3 (07:50→18:33)
[2022-12-31] MEDS ORDERED: FUROSEMIDE 40 MG/4 ML INJ (LASIX) IVP NR (09:30)
--- NOTE | 2022-12-31 09:43 | Tele-ICU Progress Note ---
Subjective Date Seen by a Provider: Dec 31, 2022 Time Seen by a Provider: 09:43 Subjective/Events-last exam (Tele-ICU Physician , Progress Note ) Service provided via interactive audio and video telecommunications E-CARE system to a patient admitted to ICU bed in [facility]. Patient is seen today due to persistent need of ICU care Available chart/ vitals / labs / Images reviewed Video assessment done using teleICU camera, rest of exam as per RN Discussed with RN Events overnight : gastric output high on LIS , sedation cut down - diaphoretic , back to versed 10, precedex1.5 , fentanyl 350 , 16 450 +5 55 % Afebrile hemodynamically stable Respiratory - 60% I/O =POS Drips: Pressors- no VENT SETTINGS and ABG reviewed NOT CANDIDATE for SBTreviewed possible contraindications including Cardiovascular Stability /Sedation Score / FI02/PEEP / ABG / CXR/ secretions Sedation, discussed with RN, RASS - 2 versed 8 , precedex1.5 , fentanyl OFF Hospital course: 12/23- 42 y/o F with no significant PMHx who presented to ED with c/o heavy alcohol use concerned about possible seizure at home. In ER noted to have progressively worsening agitation and was combative. INTUVBATED 12/24- PRVC 400/120/435/5, on versed 8 , precedex1.5 , fentanyl 200 , no Sz,phenobarb for 2 days 12/24-12/25- PRVC 16 450 +5 35 % on versed 810, precedex1.5 , fentanyl 300 , no Sz 12/26 - Vomited around NG - TF stopped 12/27- gastric output high on LIS , sedation cut down - diaphoretic , back to versed 10, precedex1.5 , fentanyl 350 , 16 450 +5 55 % 12/29-12/27- g sedation cut down - tachycardic , back to versed 10, precedex1.5 , fentanyl 350 , 16 450 +5 55 % 12/31- RASS - 2 versed 8 , precedex1.5 , desats - Fio2 35% -->60%, LASIX x1 , phenobarb and clonidin added , KUB for very distendent abd A/P Acute respiratory failure 2/2 AMS requiring airway protection -Intubated 12/23 PRVC 16 450 +5 40% - secretions better , sputum from ETT - usual floura 12/23 -Will cont to wean vent as tolerated., - try to wean down sedation , RASS - 2 versed 8 , precedex1.5 , fentanyl OFF- started metoptolol , cont CIWA FEVER 12/24 - cx blood neg , sputum from ETT - usual floura 12/23 RLL suspected after aspiration -12/26 - Vomited around NG - TF stopped - zosyn started 12/27 Distendend abdomen -12/26 - Vomited around NG - TF stopped, high NG output on LIS - resumed TF - will check KUB again , as per RN abd distented but not tender , no BM since adnmission Alcohol withdrawal: -Intubated for severe agitation -versed 8-10, precedex1.5 , fentanyl 300 , Off propofol given elevated TG 166 on admission. prn Ativan - thiamine , folate - phenobarb and clonidin added 12/31 possible seizure - suspected due to ETOH withdrawal - benzo prn , no AED Hypokalemia: / hypophos -replacing Transaminitis- improving - US RUQ: Hepatomegaly with diffuse steatosis.No sonographic features of cirrhosis --ammonia and coags WNL - to recheck Anemia - delutional -monitor stable Thrombocytopenia - presumed due to ETON , RESOLVED , Meena resumed Lines : PICC 12/24 LEFT , (Central Line Necessity Reviewed) Antony: + Nutrition: TF VTE Prophylaxis: meena 40 Stress Ulcer Prophylaxis: pepsid Plans in collaboration with bedside consultants and IM MDs. Discussed with RN to reach out if any questions or concerns Case and care daily discussed on multidisciplinary rounds ( RN, PharmD, Teacher Of The Sight Impaired , Respiratory Therapy, scrap worker ) A total of 32 minutes of critical care time was devoted to this patient today, required to treat and/or prevent further deterioration of critical care condition ( as above ) I am remotely monitoring this patient from another state. I am unable to do the bedside exam, and history/physical and pertinent information is taken from other notes in the computer and bedside staff. Sepsis Event Evaluation Height, Weight, BMI Height: '" Weight: lbs. oz. kg; 25.95 BMI Method: Exam Exam Patient acknowledged, consented, and participated in this virtual visit which was conducted using real time audio/video Vital Signs Date Time Temp Pulse Resp B/P (MAP) Pulse Ox O2 Delivery O2 Flow Rate FiO2 12/31/22 09:00 112 142/92 (99) 95 Mechanical Ventilator 35.00 12/31/22 08:00 110 34 129/97 (101) 99 Mechanical Ventilator 35.00 12/31/22 07:50 37.3 12/31/22 07:00 101 136/106 (115) 90 Mechanical Ventilator 35.00 12/31/22 07:00 126 12/31/22 06:54 96 26 95 30 12/31/22 06:00 102 28 132/96 (108) 93 Mechanical Ventilator 35.00 12/31/22 05:00 108 25 136/93 (107) 93 Mechanical Ventilator 35.00 12/31/22 04:32 30 12/31/22 04:00 94 Mechanical Ventilator 30 12/31/22 04:00 97 27 127/91 (103) 94 Mechanical Ventilator 35.00 12/31/22 03:01 36.7 12/31/22 03:00 95 28 132/94 (107) 94 Mechanical Ventilator 35.00 12/31/22 02:57 95 128/85 12/31/22 02:57 95 28 128/85 12/31/22 02:24 95 28 95 30 12/31/22 02:00 93 27 128/85 (99) 95 Mechanical Ventilator 35.00 12/31/22 01:00 100 12/31/22 01:00 93 27 125/92 (103) 95 Mechanical Ventilator 35.00 12/31/22 00:32 30 12/31/22 00:00 98 27 126/90 (102) 95 Mechanical Ventilator 35.00 12/30/22 23:59 94 Mechanical Ventilator 30 12/30/22 23:00 105 29 129/95 (106) 94 Mechanical Ventilator 35.00 12/30/22 22:31 107 29 93 30 12/30/22 22:00 109 29 128/94 (105) 94 Mechanical Ventilator 35.00 12/30/22 21:00 105 30 128/94 (105) 94 Mechanical Ventilator 35.00 12/30/22 20:32 30 12/30/22 20:00 105 30 123/93 (103) 92 Mechanical Ventilator 35.00 12/30/22 20:00 93 Mechanical Ventilator 30 12/30/22 19:59 36.3 12/30/22 19:00 92 27 117/88 (98) 100 Mechanical Ventilator 35.00 12/30/22 19:00 90 12/30/22 18:55 99 30 94 30 12/30/22 18:47 96 114/90 12/30/22 18:00 74 45 120/80 (93) 96 Mechanical Ventilator 35.00 12/30/22 17:00 89 25 114/79 (91) 95 Mechanical Ventilator 35.00 12/30/22 16:32 30 12/30/22 16:00 94 27 117/91 (100) 96 Mechanical Ventilator 35.00 12/30/22 16:00 93 Mechanical Ventilator 30 12/30/22 15:43 36.8 12/30/22 15:27 89 24 96 30 12/30/22 15:01 89 25 116/80 12/30/22 15:00 89 24 116/80 (92) 96 Mechanical Ventilator 35.00 12/30/22 14:00 105 27 117/85 (96) 92 Mechanical Ventilator 35.00 12/30/22 13:08 114 12/30/22 13:00 114 27 124/95 (105) 92 Mechanical Ventilator 35.00 12/30/22 12:32 35 12/30/22 12:00 37.2 12/30/22 12:00 93 Mechanical Ventilator 30 12/30/22 12:00 129 26 145/103 (117) 90 Mechanical Ventilator 35.00 12/30/22 11:02 126 27 92 30 12/30/22 11:00 125 32 157/114 (128) 92 Mechanical Ventilator 35.00 12/30/22 10:00 109 29 114/83 (93) 93 Mechanical Ventilator 35.00 I & O 12/31/22 06:59 Intake Total 2443 ml Output Total 1610 ml Balance 833 ml Height & Weight Height: '" Weight: lbs. oz. kg; 25.95 BMI Method: General Appearance: Chronically ill, Other (Mild tachypnea) HEENT: No PERRL/EOMI, No TMs Normal, No Normal ENT Inspection, No Pharynx Normal, No Moist Mucous Membranes, No Pale Conjunctivae (L), No Pale Conjunctivae (R), No Pharyngeal Erythema, No Photophobia, No Scleral Icterus (L), No Scleral Icterus (R), No TM Abnormal (L), No TM Abnormal (R), No Tonsillar Exudate, No Tonsillar Enlargement, No Other Neck: No Full Range of Motion, No Normal Inspection, No Non Tender, No Supple, No Carotid Bruit, No JVD, No Limited Range of Motion, No Lymphadenopathy (L), No Lymphadenopathy (R), No Tender Lateral, No Tender Midline, No Thyromegaly, No Other Respiratory: Accessory Muscle Use, Crackles, Decreased Breath Sounds Cardiovascular: Regular Rate, Rhythm Capillary Refill: Less Than 3 Seconds Peripheral Pulses: 2+ Dorsalis Pedis (R), 2+ Left Dors-Pedis (L) Gastrointestinal: normal bowel sounds, non tender, soft, other (abd is distended, got MOM) Extremity: Pedal Edema (trace ankle edema) Neurologic/Psychiatric: Other (sedated) Results Lab Laboratory Tests 12/30/22 05:00 12/31/22 04:20 Assessment/Plan Assessment/Plan 1 SHELLY CLEMENT MD Dec 31, 2022 09:43
[2022-12-31 09:44] LABS: ALBUMIN 2.6 GM/DL (3.2-4.5)
[2022-12-31 09:47] LABS: TOTAL PROTEIN 5.9 GM/DL (6.4-8.2)
[2022-12-31 09:49] LABS: BILIRUBIN,TOTAL 1.8 MG/DL (0.1-1.0)
[2022-12-31] MEDS: ENOXAPARIN 40 MG/0.4 ML (LOVENOX) SYR SC SCH (09:49)
[2022-12-31 09:53] LABS: BILIRUBIN,DIRECT 1.3 MG/DL (0.0-0.3); BILIRUBIN,INDIRECT 0.5 MG/DL
[2022-12-31] MEDS ORDERED: POTASSIUM PHOSPHATE INJ 30 MM in NS (IVPB) 250 ML IV NR (10:00)
--- NOTE | 2022-12-31 10:07 | Diagnostic Imaging Report ---
INDICATION: Absent bowel sounds. Study compared 12/27/2022. FINDINGS: There is some increased stool in the colon on the right as well as at the sigmoid. No features of impaction. Some air distention of the catheterized stomach similar to the prior. No air containing dilated small bowel loops. There is gas of the rectal vault. IMPRESSION: Increased fecal load. No small bowel dilatation. OG in good position. Dictated by: Dictated on workstation # [id number]
--- NOTE | 2022-12-31 10:45 | Progress Note - Hospitalist ---
Subjective HPI/CC On Admission Date Seen by Provider: Dec 31, 2022 Time Seen by Provider: 11:00 Subjective/Events-last exam Patient remains intubated Breathing over the vent Very grave prognosis May need PEG and trach Focused Exam Lactate Level 12/31/22 16:35: Lactic Acid Level 0.88 Objective Exam Vital Signs Vital Signs Date Time Temp Pulse Resp B/P (MAP) Pulse Ox O2 Delivery O2 Flow Rate FiO2 01/01/23 04:32 40 01/01/23 04:00 113 20 116/82 (92) 95 Mechanical Ventilator 40.00 01/01/23 04:00 37.2 Capillary Refill : Less Than 3 Seconds General Appearance: Other (Intubated and sedated) Respiratory: Crackles, Decreased Breath Sounds Cardiovascular: Regular Rate, Rhythm Results/Procedures Lab Laboratory Tests 01/01/23 04:10 Patient resulted labs reviewed. Assessment/Plan Assessment and Plan Assess & Plan/Chief Complaint Severe alcohol withdrawal requiring intubation (1) Delirium tremens (2) Elevated liver enzymes (3) Alcohol withdrawal delirium (4) Hypokalemia (5) Hypomagnesemia (6) Hypophosphatemia (7) Thrombocytopenia (8) Leukopenia (9) Alcohol use disorder (10) Opioid use disorder (11) Hypertension (12) Bipolar disorder (13) History of hepatitis C (14) DVT prophylaxis Supportive care Ventilator May need PEG and trach Critical Care Ventilator Management JEN SEXTON DO Dec 31, 2022 10:45
[2022-12-31 11:04] VITALS: BP 126/95
[2022-12-31] MEDS: cloNIDine 0.2 MG PATCH (CATAPRES TTS) TDSY TD SCH (11:46)
[2022-12-31] MEDS: PHENobarbital 64.8 MG (1 GRAIN) TAb PO SCH ×2 (11:46→21:24)
[2022-12-31] MEDS: FOLIC ACID IV SCH ×3 (13:53)
[2022-12-31] MEDS: THIAMINE 100 MG IV SCH ×3 (13:53)
[2022-12-31] MEDS: NS IV SCH ×3 (13:53)
[2022-12-31 15:01] VITALS: BP 116/80
[2022-12-31] MEDS: ACETAMINOPHEN 500 MG TAB (TYLENOL) PO PRN (16:00)
[2022-12-31 16:54] LABS: AMYLASE 201 U/L (25-125)
[2022-12-31] MEDS ORDERED: LACTULOSE SYRUP 10GM/15ML (ENULOSE) 30ML UDC PO NR (17:00)
[2022-12-31 17:02] LABS: CREATINE KINASE 84 U/L (29-168)
[2022-12-31] MEDS ORDERED: CATHETER FLUSH 10 ML SYR IV PRN (18:45)
[2022-12-31] MEDS ORDERED: NS 100 ML (IVPB) BAG IV ONE (18:45)
[2022-12-31] MEDS ORDERED: IOHEXOL 350 MG/ML 100 ML (OMNIPAQUE 350) VIAL IV ONE (18:45)
[2022-12-31] MEDS ORDERED: HOLD METFORMIN - RECEIVED CONTRAST 20 ML VIAL IV SCH (18:45)
[2022-12-31 19:22] VITALS: BP 114/74
--- NOTE | 2022-12-31 20:54 | Diagnostic Imaging Report ---
PROCEDURE: CT angiography of the chest with contrast. TECHNIQUE: Multiple contiguous axial images were obtained through the chest after uneventful bolus administration of intravenous contrast. 3D reconstructed CTA MIP acquisitions were also performed. Auto Exposure Controls were utilized during the CT exam to meet ALARA standards for radiation dose reduction. INDICATION: Respiratory failure, elevated D-dimer. FINDINGS: There are interstitial infiltrates in the dependent portions of the lung bases. There is a patchy area of consolidation in the dependent portion of both lung bases. There is some groundglass infiltrate in both upper lobes. There is no effusion or pneumothorax. There is no right ventricular strain. There is no pulmonary embolus. ET tube in the trachea. There is an NG tube in the stomach. IMPRESSION: Upper lobe alveolar infiltrates and lower lobe interstitial infiltrates with some dependent atelectasis. No evidence for pulmonary embolic disease. Dictated by: Dictated on workstation # [id number]
[2022-12-31] MEDS ORDERED: LACTULOSE SYRUP 10GM/15ML (ENULOSE) 30ML UDC PO SCH (21:00)
[2022-12-31] MEDS: LACTULOSE SYRUP 10GM/15ML (ENULOSE) 30ML UDC PO SCH (21:23)
[2022-12-31 22:16] VITALS: BP 98/71
[2023-01-01] MEDS: inSUlin ASPART (NovoLOG) 1 UNIT/0.01 ML (CHARGE PER UNIT) SQ SCH ×4 (00:02→18:43)
[2023-01-01] MEDS: PIPERACILLIN SODIUM/TAZOBACTAM 4.5 GM in NS (IVPB) 100 ML IV SCH (02:06)
[2023-01-01 02:12] VITALS: BP 110/77
[2023-01-01] MEDS: RT-ALBUTEROL/IPRATROPIUM 3 ML (DUONEB) VIAL INH SCH ×6 (02:12→22:24)
[2023-01-01] MEDS: LORazepam INJ 2 MG/ML (ATIVAN) VIAL IV PRN (04:16)
[2023-01-01 04:18] LABS: BASOPHILS # (AUTO) 0.1 10^3/uL (0.0-0.1); BASOPHILS % (AUTO) 1 % (0-10); EOSINOPHILS # (AUTO) 0.1 10^3/uL (0.0-0.3); EOSINOPHILS % (AUTO) 1 % (0-10); HEMATOCRIT 22 % (35-52); HEMOGLOBIN 7.3 g/dL (11.5-16.0); LYMPHOCYTES # (AUTO) 1.3 10^3/uL (1.0-4.0); LYMPHOCYTES % (AUTO) 11 % (12-44); MEAN CORPUSCULAR HEMOGLOBIN 37 pg (25-34); MEAN CORPUSCULAR HGB CONC 33 g/dL (32-36); MEAN CORPUSCULAR VOLUME 114 fL (80-99); MEAN PLATELET VOLUME 11.3 fL (9.0-12.2); MONOCYTES # (AUTO) 0.7 10^3/uL (0.0-1.0); MONOCYTES % (AUTO) 6 % (0-12); NEUTROPHILS # (AUTO) 10.4 10^3/uL (1.8-7.8); NEUTROPHILS % (AUTO) 81 % (42-75); PLATELET COUNT 407 10^3/uL (130-400); WHITE BLOOD COUNT 12.8 10^3/uL (4.3-11.0)
[2023-01-01 04:28] LABS: POTASSIUM 4.2 MMOL/L (3.6-5.0)
[2023-01-01 04:29] LABS: CALCIUM 8.1 MG/DL (8.5-10.1)
[2023-01-01 04:34] LABS: CREATININE SERUM 0.54 MG/DL (0.60-1.30)
[2023-01-01] MEDS: KCL 20 MEQ TAB (K-DUR) PO SCH (05:58)
[2023-01-01] MEDS: MAGNESIUM 1 GM/100 ML IVPB 100 ML IV SCH (05:58)
[2023-01-01] MEDS: POTASSIUM CL 10MEQ/50ML IVPB 50 ML IV SCH (05:58)
[2023-01-01] MEDS: POTASSIUM BICARB 20 MEQ (EFFER-K) TABLET PO SCH (05:58)
[2023-01-01 06:11] LABS: MAGNESIUM 1.8 MG/DL (1.6-2.4)
--- NOTE | 2023-01-01 06:47 | Progress Note - Hospitalist ---
Subjective HPI/CC On Admission Date Seen by Provider: Jan 01, 2023 Time Seen by Provider: 11:00 Subjective/Events-last exam Remains intubated Breathing over the vent May very well need PEG and trach Focused Exam Lactate Level 12/31/22 16:35: Lactic Acid Level 0.88 Objective Exam Vital Signs Vital Signs Date Time Temp Pulse Resp B/P (MAP) Pulse Ox O2 Delivery O2 Flow Rate FiO2 01/01/23 19:23 37.8 114 27 112/77 (89) 96 Mechanical Ventilator 35.00 01/01/23 19:10 35 Capillary Refill : Less Than 3 Seconds General Appearance: Chronically ill, Other (Sedated and ventilated) Respiratory: Accessory Muscle Use, Decreased Breath Sounds Cardiovascular: Regular Rate, Rhythm Results/Procedures Lab Laboratory Tests 01/01/23 04:10 Patient resulted labs reviewed. Assessment/Plan Assessment and Plan Assess & Plan/Chief Complaint Severe alcohol withdrawal requiring intubation (1) Delirium tremens (2) Elevated liver enzymes (3) Alcohol withdrawal delirium (4) Hypokalemia (5) Hypomagnesemia (6) Hypophosphatemia (7) Thrombocytopenia (8) Leukopenia (9) Alcohol use disorder (10) Opioid use disorder (11) Hypertension (12) Bipolar disorder (13) History of hepatitis C (14) DVT prophylaxis Supportive care Ventilator May need PEG and trach Critical Care Ventilator Management JEN SEXTON DO Jan 01, 2023 06:47
[2023-01-01 07:22] VITALS: BP 117/79
[2023-01-01] MEDS: meTOprolol 5 MG/5 ML (LOPRESSOR) VIAL IV PRN (07:42)
[2023-01-01] MEDS: PHENobarbital 64.8 MG (1 GRAIN) TAb PO SCH ×2 (07:42→21:00)
[2023-01-01] MEDS: LACTULOSE SYRUP 10GM/15ML (ENULOSE) 30ML UDC PO SCH ×3 (07:42→21:00)
[2023-01-01] MEDS: FAMOTIDINE 20MG/2ML IV (PEPCID) IVP SCH (07:42)
[2023-01-01] MEDS ORDERED: KETOROLAC 30 MG/ML VIAL IVP NR (09:00)
[2023-01-01] MEDS ORDERED: FUROSEMIDE 40 MG/4 ML INJ (LASIX) IVP NR (09:00)
--- NOTE | 2023-01-01 09:01 | Tele-ICU Progress Note ---
Subjective Date Seen by a Provider: Jan 01, 2023 Time Seen by a Provider: 09:01 Subjective/Events-last exam (Tele-ICU Physician , Progress Note ) Service provided via interactive audio and video telecommunications E-CARE system to a patient admitted to ICU bed in [facility]. Patient is seen today due to persistent need of ICU care Available chart/ vitals / labs / Images reviewed Video assessment done using teleICU camera, rest of exam as per RN Discussed with RN Events overnight : gastric output high on LIS , sedation cut down - diaphoretic , back to versed 10, precedex1.5 , fentanyl 350 , 16 450 +5 55 % Afebrile hemodynamically stable Respiratory - 60% I/O =POS few hundrests Drips: Pressors- no VENT SETTINGS and ABG reviewed NOT CANDIDATE for SBTreviewed possible contraindications including Cardiovascular Stability /Sedation Score / FI02/PEEP / ABG / CXR/ secretions Sedation, discussed with RN, RASS - 2 versed 8 , precedex1.5 , fentanyl OFF Hospital course: 12/23- 42 y/o F with no significant PMHx who presented to ED with c/o heavy alcohol use concerned about possible seizure at home. In ER noted to have progressively worsening agitation and was combative. INTUVBATED 12/24- PRVC 400/120/435/5, on versed 8 , precedex1.5 , fentanyl 200 , no Sz,phe nobarb for 2 days 12/24-12/25- PRVC 16 450 +5 35 % on versed 810, precedex1.5 , fentanyl 300 , no Sz 12/26 - Vomited around NG - TF stopped 12/27- gastric output high on LIS , sedation cut down - diaphoretic , back to versed 10, precedex1.5 , fentanyl 350 , 16 450 +5 55 % 12/29-12/27- g sedation cut down - tachycardic , back to versed 10, precedex1.5 , fentanyl 350 , 16 450 +5 55 % 12/31- RASS - 2 versed 8 , precedex1.5 , desats - Fio2 35% -->60%, LASIX x1 , phenobarb and clonidin added , KUB for very distendent abd 12/31 - persistent tachycardia , elv dddimer - CTA - NEG for PE 01/01- 16 450 +5 40 % , versed 8 , precedex1.5 A/P Acute respiratory failure 2/2 AMS requiring airway protection -Intubated 12/23 PRVC 16 450 +5 40% - secretions better , sputum from ETT - usual floura 12/23 12/31 - persistent tachycardia , elv dddimer - CTA - NEG for PE -Will cont to wean vent as tolerated., - try to wean down sedation , RASS - 2 versed 8 , precedex1.5 , fentanyl OFF- started metoptolol , cont CIWA FEVER 12/24 - cx blood neg , sputum from ETT - usual floura 12/23 -usual floura 12/23 - 12/31 - STAPH in ETT - pending RLL suspected after aspiration -12/26 - Vomited around NG - TF stopped - zosyn started 12/27 Tachycardia 12/31 - sinus , trop wnl 12/31 - started on cardizem po and p[rn beta blockers -CTA neg for PE - try pain control Distendend abdomen -12/26 - Vomited around NG - TF stopped, high NG output on LIS - resumed TF - will check KUB again , as per RN abd distented but not tender , no BM since adnmission - KUB done 12/31 , strarted on lactul;ose 12/31 Alcohol withdrawal: -Intubated for severe agitation -versed 8-10, precedex1.5 , fentanyl 300 , Off propofol given elevated TG 166 on admission. prn Ativan - thiamine , folate - phenobarb and clonidin added 12/31 possible seizure - suspected due to ETOH withdrawal - benzo prn , no AED Hypokalemia: / hypophos -replacing Transaminitis- improving - US RUQ: Hepatomegaly with diffuse steatosis.No sonographic features of cirrhosis --ammonia and coags WNL - to recheck Anemia - delutional -monitor stable - check iron Thrombocytopenia - presumed due to ETON , RESOLVED , Meena resumed Lines : PICC 12/24 LEFT , (Central Line Necessity Reviewed) Antony: + Nutrition: TF VTE Prophylaxis: meena 40 Stress Ulcer Prophylaxis: pepsid Plans in collaboration with bedside consultants and IM MDs. Discussed with RN to reach out if any questions or concerns Case and care daily discussed on multidisciplinary rounds ( RN, PharmD, Packing Inspector , Respiratory Therapy, can intake worker ) A total of 32 minutes of critical care time was devoted to this patient today, required to treat and/or prevent further deterioration of critical care condition ( as above ) I am remotely monitoring this patient from another state. I am unable to do the bedside exam, and history/physical and pertinent information is taken from other notes in the computer and bedside staff. Sepsis Event Evaluation Height, Weight, BMI Height: '" Weight: lbs. oz. kg; 25.95 BMI Method: Focused Exam Lactate Level 12/31/22 16:35: Lactic Acid Level 0.88 Exam Exam Patient acknowledged, consented, and participated in this virtual visit which was conducted using real time audio/video Vital Signs Date Time Temp Pulse Resp B/P (MAP) Pulse Ox O2 Delivery O2 Flow Rate FiO2 01/01/23 08:32 40 01/01/23 08:00 112 31 130/88 (99) 97 Mechanical Ventilator 40.00 01/01/23 08:00 95 Mechanical Ventilator 40 01/01/23 07:22 103 23 100 40 01/01/23 07:00 106 01/01/23 07:00 106 35 117/79 (92) 96 Mechanical Ventilator 40.00 01/01/23 06:00 110 20 114/85 (95) 97 Mechanical Ventilator 40.00 01/01/23 05:00 105 20 106/82 (90) 94 Mechanical Ventilator 40.00 01/01/23 04:32 40 01/01/23 04:00 113 20 116/82 (92) 95 Mechanical Ventilator 40.00 01/01/23 04:00 37.2 01/01/23 04:00 95 Mechanical Ventilator 40 01/01/23 03:00 115 20 118/81 (88) 96 Mechanical Ventilator 40.00 01/01/23 02:12 112 28 95 40 01/01/23 02:00 112 20 110/77 (83) 95 Mechanical Ventilator 40.00 01/01/23 01:00 113 01/01/23 01:00 113 20 115/82 (88) 96 Mechanical Ventilator 40.00 01/01/23 00:32 40 01/01/23 00:03 37.1 01/01/23 00:00 114 20 115/80 (91) 98 Mechanical Ventilator 40.00 12/31/22 23:59 95 Mechanical Ventilator 40 12/31/22 23:00 107 20 103/75 (84) 95 Mechanical Ventilator 40.00 12/31/22 22:55 109 98/71 12/31/22 22:55 109 27 98/71 12/31/22 22:30 110 20 101/69 (77) 93 Mechanical Ventilator 40.00 12/31/22 22:16 109 27 94 40 12/31/22 22:08 105 20 98/71 (80) 93 Mechanical Ventilator 40.00 12/31/22 21:00 122 20 94 Mechanical Ventilator 40.00 12/31/22 20:50 118 12/31/22 20:32 40 12/31/22 20:15 118 20 107/77 (86) 96 Mechanical Ventilator 40.00 12/31/22 20:00 118 20 111/70 (89) 96 Mechanical Ventilator 40.00 12/31/22 20:00 95 Mechanical Ventilator 40 12/31/22 19:39 37.7 12/31/22 19:22 28 96 40 12/31/22 19:15 113 20 114/74 (87) 95 Mechanical Ventilator 40.00 12/31/22 19:00 Mechanical Ventilator 40.00 12/31/22 19:00 113 12/31/22 18:23 133 106/90 12/31/22 18:00 133 106/90 (95) 94 Mechanical Ventilator 30.00 12/31/22 17:00 142 138/64 (87) 94 Mechanical Ventilator 30.00 12/31/22 16:45 37.6 12/31/22 16:32 30 12/31/22 16:00 94 Mechanical Ventilator 40 12/31/22 16:00 38.1 12/31/22 16:00 134 128/79 (95) 94 Mechanical Ventilator 30.00 12/31/22 15:56 38.1 12/31/22 15:03 94 30 12/31/22 15:01 122 28 97 50 12/31/22 15:00 122 116/80 (91) 97 Mechanical Ventilator 30.00 12/31/22 14:00 128 118/86 (97) 97 Mechanical Ventilator 35.00 12/31/22 13:58 139 28 135/89 12/31/22 13:54 139 135/89 12/31/22 13:00 121 115/75 (85) 96 Mechanical Ventilator 35.00 12/31/22 12:54 139 12/31/22 12:32 30 12/31/22 12:00 94 Mechanical Ventilator 30 12/31/22 12:00 140 135/89 (106) 95 Mechanical Ventilator 35.00 12/31/22 11:51 37.7 12/31/22 11:04 133 28 95 50 12/31/22 11:00 134 126/95 (105) 94 Mechanical Ventilator 35.00 12/31/22 10:00 121 150/106 (125) 94 Mechanical Ventilator 35.00 I & O 01/01/23 07:00 Intake Total 3812.4 ml Output Total 2925 ml Balance 887.4 ml Height & Weight Height: '" Weight: lbs. oz. kg; 25.95 BMI Method: General Appearance: Other (Intubated and sedated) HEENT: No PERRL/EOMI, No TMs Normal, No Normal ENT Inspection, No Pharynx Normal, No Moist Mucous Membranes, No Pale Conjunctivae (L), No Pale Conjunctivae (R), No Pharyngeal Erythema, No Photophobia, No Scleral Icterus (L), No Scleral Icterus (R), No TM Abnormal (L), No TM Abnormal (R), No Tonsillar Exudate, No Tonsillar Enlargement, No Other Neck: No Full Range of Motion, No Normal Inspection, No Non Tender, No Supple, No Carotid Bruit, No JVD, No Limited Range of Motion, No Lymphadenopathy (L), No Lymphadenopathy (R), No Tender Lateral, No Tender Midline, No Thyromegaly, No Other Respiratory: Crackles, Decreased Breath Sounds Cardiovascular: Regular Rate, Rhythm Capillary Refill: Less Than 3 Seconds Peripheral Pulses: 2+ Dorsalis Pedis (R), 2+ Left Dors-Pedis (L) Gastrointestinal: normal bowel sounds, non tender, soft, other (abd is distended, got MOM) Extremity: Pedal Edema (trace ankle edema) Neurologic/Psychiatric: Other (sedated) Results Lab Laboratory Tests 12/31/22 04:20 01/01/23 04:10 Assessment/Plan Assessment/Plan 1 SHELLY CLEMENT MD Jan 01, 2023 09:01
[2023-01-01] MEDS: MIDAZOLAM DRIP PRE-MIX 100 ML IV SCH ×2 (09:11→19:57)
[2023-01-01] MEDS: DexMEDEtomidine 250 ML DRIP 250 ML IV SCH ×2 (09:11→19:23)
[2023-01-01 10:28] VITALS: BP 129/88
[2023-01-01] MEDS: ENOXAPARIN 40 MG/0.4 ML (LOVENOX) SYR SC SCH (11:07)
[2023-01-01] MEDS: ACETAMINOPHEN 500 MG TAB (TYLENOL) PO PRN ×2 (11:07→22:13)
[2023-01-01 15:04] VITALS: BP 113/79
[2023-01-01] MEDS: FOLIC ACID IV SCH ×3 (15:12)
[2023-01-01] MEDS: NS IV SCH ×3 (15:12)
[2023-01-01] MEDS: THIAMINE 100 MG IV SCH ×3 (15:12)
[2023-01-01] MEDS: fentaNYL INJ 100 MCG/2 ML AMP IVP PRN ×2 (15:45→20:10)
[2023-01-01 19:10] VITALS: BP 112/77
[2023-01-01 22:24] VITALS: BP 117/84
[2023-01-02] VITALS (7 sets, daily range): BP systolic 90–132; BP diastolic 69–98
[2023-01-02] MEDS: inSUlin ASPART (NovoLOG) 1 UNIT/0.01 ML (CHARGE PER UNIT) SQ SCH ×4 (00:11→18:13)
[2023-01-02] MEDS: LORazepam INJ 2 MG/ML (ATIVAN) VIAL IV PRN ×3 (00:24→06:36)
[2023-01-02] MEDS: fentaNYL INJ 100 MCG/2 ML AMP IVP PRN (01:57)
[2023-01-02 01:58] LABS: ABG BASE EXCESS 3.4 MMOL/L (-2.5-2.5); ABG OXYGEN SATURATION 96 % (94-100); ABG PCO2 49 MMHG (35-45); ABG PH 7.38 (7.37-7.43); ABG PO2 79 MMHG (79-93); ABG TCO2 29.2 MMOL/L (21.0-31.0)
[2023-01-02 01:59] LABS: ALLENS TEST YES-POS; INSPIRED O2 35%; VENTILATOR YES
[2023-01-02 02:00] LABS: PATIENT TEMP 38.3
[2023-01-02] MEDS: RT-ALBUTEROL/IPRATROPIUM 3 ML (DUONEB) VIAL INH SCH ×6 (02:25→22:20)
[2023-01-02] MEDS: fentaNYL DRIP PRE-MIX 250 ML IV SCH ×5 (02:26→22:08)
[2023-01-02 05:04] LABS: BASOPHILS # (AUTO) 0.1 10^3/uL (0.0-0.1); BASOPHILS % (AUTO) 1 % (0-10); EOSINOPHILS # (AUTO) 0.2 10^3/uL (0.0-0.3); EOSINOPHILS % (AUTO) 2 % (0-10); HEMATOCRIT 21 % (35-52); LYMPHOCYTES # (AUTO) 1.2 10^3/uL (1.0-4.0); LYMPHOCYTES % (AUTO) 9 % (12-44); MEAN CORPUSCULAR HEMOGLOBIN 37 pg (25-34); MEAN CORPUSCULAR HGB CONC 32 g/dL (32-36); MEAN CORPUSCULAR VOLUME 115 fL (80-99); MONOCYTES # (AUTO) 0.5 10^3/uL (0.0-1.0); MONOCYTES % (AUTO) 4 % (0-12); NEUTROPHILS # (AUTO) 10.7 10^3/uL (1.8-7.8); NEUTROPHILS % (AUTO) 83 % (42-75); PLATELET COUNT 453 10^3/uL (130-400); WHITE BLOOD COUNT 12.9 10^3/uL (4.3-11.0)
[2023-01-02 05:07] LABS: HEMOGLOBIN 6.8 g/dL (11.5-16.0)
[2023-01-02 05:13] LABS: POTASSIUM 3.7 MMOL/L (3.6-5.0)
[2023-01-02 05:14] LABS: CALCIUM 8.1 MG/DL (8.5-10.1)
[2023-01-02 05:18] LABS: CREATININE SERUM 0.5 MG/DL (0.60-1.30)
[2023-01-02] MEDS: MAGNESIUM 1 GM/100 ML IVPB 100 ML IV SCH ×3 (05:21→06:49)
[2023-01-02] MEDS: KCL 20 MEQ TAB (K-DUR) PO SCH (05:21)
[2023-01-02] MEDS: POTASSIUM CL 10MEQ/50ML IVPB 50 ML IV SCH ×3 (05:21→06:36)
[2023-01-02] MEDS: POTASSIUM BICARB 20 MEQ (EFFER-K) TABLET PO SCH (05:21)
[2023-01-02 05:34] LABS: PHOSPHORUS 2.4 MG/DL (2.3-4.7)
--- NOTE | 2023-01-02 05:34 | Tele-ICU Progress Note ---
Subjective Date Seen by a Provider: Jan 02, 2023 Time Seen by a Provider: 05:32 Subjective/Events-last exam called for Hb 6,8, was 7.3, will transfuse one unit PRBC Agus Bruner MD Sepsis Event Evaluation Height, Weight, BMI Height: '" Weight: lbs. oz. kg; 25.95 BMI Method: Focused Exam Lactate Level 12/31/22 16:35: Lactic Acid Level 0.88 Exam Exam Patient acknowledged, consented, and participated in this virtual visit which was conducted using real time audio/video Vital Signs Date Time Temp Pulse Resp B/P (MAP) Pulse Ox O2 Delivery O2 Flow Rate FiO2 01/02/23 05:00 37.6 99 23 104/71 (82) 95 Mechanical Ventilator 35.00 01/02/23 04:32 35 01/02/23 04:25 112 112/79 01/02/23 04:00 97 Mechanical Ventilator 35 01/02/23 04:00 38.0 120 27 116/81 (93) 95 Mechanical Ventilator 35.00 01/02/23 03:49 121 124/83 01/02/23 03:02 126 130/89 01/02/23 03:00 38.3 128 30 130/89 (103) 96 Mechanical Ventilator 35.00 01/02/23 02:29 120 33 98 35 01/02/23 02:26 122 125/87 01/02/23 02:21 122 125/87 01/02/23 02:00 38.3 120 18 125/87 (100) 97 Mechanical Ventilator 35.00 01/02/23 02:00 120 01/02/23 01:59 121 34 126/93 01/02/23 01:00 38.3 115 126/93 (104) 97 Mechanical Ventilator 35.00 01/02/23 00:32 35 01/02/23 00:00 38.4 111 125/90 (102) 97 Mechanical Ventilator 35.00 01/01/23 23:59 97 Mechanical Ventilator 35 01/01/23 23:23 116 117/83 01/01/23 23:00 38.5 116 117/83 (94) 96 Mechanical Ventilator 35.00 01/01/23 22:43 38.5 01/01/23 22:24 112 32 96 35 01/01/23 22:13 38.6 7/1/23 22:00 38.7 117 117/84 (95) 95 Mechanical Ventilator 35.00 01/01/23 21:00 38.7 118 115/83 (94) 94 Mechanical Ventilator 35.00 01/01/23 20:33 38.7 01/01/23 20:32 35 01/01/23 20:00 118 28 120/77 (91) 95 Mechanical Ventilator 35.00 01/01/23 20:00 95 Mechanical Ventilator 35 01/01/23 19:57 111 27 112/77 01/01/23 19:23 37.8 114 27 112/77 (89) 96 Mechanical Ventilator 35.00 01/01/23 19:23 111 112/77 01/01/23 19:11 111 01/01/23 19:10 111 26 97 35 01/01/23 19:00 110 29 91/78 (82) 96 Mechanical Ventilator 35.00 01/01/23 18:00 109 25 98/69 (77) 95 Mechanical Ventilator 35.00 01/01/23 17:00 126 124/83 (92) 93 Mechanical Ventilator 35.00 01/01/23 16:32 40 01/01/23 16:00 123 35 114/74 (87) 94 Mechanical Ventilator 35.00 01/01/23 16:00 36.2 01/01/23 16:00 95 Mechanical Ventilator 40 01/01/23 15:15 38.6 01/01/23 15:04 121 24 94 35 01/01/23 15:00 120 22 113/79 (91) 94 Mechanical Ventilator 35.00 01/01/23 14:00 123 33 112/77 (90) 95 Mechanical Ventilator 35.00 01/01/23 13:11 123 112/77 01/01/23 13:00 117 23 103/66 (77) 94 Mechanical Ventilator 35.00 01/01/23 13:00 119 01/01/23 12:32 40 01/01/23 12:00 95 Mechanical Ventilator 40 01/01/23 12:00 123 25 109/55 (93) 92 Mechanical Ventilator 35.00 01/01/23 11:37 37.6 01/01/23 11:07 38.6 01/01/23 11:00 124 26 112/72 (85) 92 Mechanical Ventilator 35.00 01/01/23 10:34 Mechanical Ventilator 35.00 01/01/23 10:28 124 27 96 35 01/01/23 10:00 124 129/88 (109) 100 Mechanical Ventilator 40.00 01/01/23 09:11 112 130/88 01/01/23 09:11 112 31 130/88 01/01/23 09:00 112 25 123/88 (101) 95 Mechanical Ventilator 40.00 01/01/23 08:32 40 01/01/23 08:00 112 31 130/88 (99) 97 Mechanical Ventilator 40.00 01/01/23 08:00 95 Mechanical Ventilator 40 01/01/23 07:22 103 23 100 40 01/01/23 07:00 106 01/01/23 07:00 106 35 117/79 (92) 96 Mechanical Ventilator 40.00 01/01/23 06:00 110 20 114/85 (95) 97 Mechanical Ventilator 40.00 I & O 01/02/23 07:00 Intake Total 3790 ml Output Total 1550 ml Balance 2240 ml Height & Weight Height: '" Weight: lbs. oz. kg; 25.95 BMI Method: General Appearance: Chronically ill, Other (Sedated and ventilated) HEENT: No PERRL/EOMI, No TMs Normal, No Normal ENT Inspection, No Pharynx Normal, No Moist Mucous Membranes, No Pale Conjunctivae (L), No Pale Conjunctivae (R), No Pharyngeal Erythema, No Photophobia, No Scleral Icterus (L), No Scleral Icterus (R), No TM Abnormal (L), No TM Abnormal (R), No Tonsillar Exudate, No Tonsillar Enlargement, No Other Neck: No Full Range of Motion, No Normal Inspection, No Non Tender, No Supple, No Carotid Bruit, No JVD, No Limited Range of Motion, No Lymphadenopathy (L), No Lymphadenopathy (R), No Tender Lateral, No Tender Midline, No Thyromegaly, No Other Respiratory: Accessory Muscle Use, Decreased Breath Sounds Cardiovascular: Regular Rate, Rhythm Capillary Refill: Less Than 3 Seconds Peripheral Pulses: 2+ Dorsalis Pedis (R), 2+ Left Dors-Pedis (L) Gastrointestinal: normal bowel sounds, non tender, soft, other (abd is distended, got MOM) Extremity: Pedal Edema (trace ankle edema) Neurologic/Psychiatric: Other (sedated) Results Lab Laboratory Tests 01/01/23 04:10 01/02/23 05:00 Assessment/Plan Assessment/Plan called for Hb 6,8, was 7.3, will transfuse one unit PRBC Critical Care: Ventilator Management HAMLET BRUNER MD Jan 02, 2023 05:34
[2023-01-02 05:35] LABS: MAGNESIUM 1.8 MG/DL (1.6-2.4)
[2023-01-02] MEDS ORDERED: NS IV 500 ML 500 ML IV SCH (05:45)
[2023-01-02] MEDS: MIDAZOLAM DRIP PRE-MIX 100 ML IV SCH ×2 (06:46→17:14)
--- NOTE | 2023-01-02 07:29 | Progress Note - Hospitalist ---
Subjective HPI/CC On Admission Date Seen by Provider: Jan 02, 2023 Time Seen by Provider: 11:00 Subjective/Events-last exam Remains intubated More alert SBT currently Focused Exam Lactate Level 12/31/22 16:35: Lactic Acid Level 0.88 Objective Exam Vital Signs Vital Signs Date Time Temp Pulse Resp B/P (MAP) Pulse Ox O2 Delivery O2 Flow Rate FiO2 01/02/23 16:00 36.9 98 21 106/70 (80) 96 Mechanical Ventilator 35.00 01/02/23 14:39 35 Capillary Refill : Less Than 3 Seconds General Appearance: No Apparent Distress, WD/WN, Chronically ill, Other (Awake and alert) Respiratory: No Accessory Muscle Use, Decreased Breath Sounds Results/Procedures Lab Laboratory Tests 01/02/23 05:00 01/02/23 16:10 Patient resulted labs reviewed. Assessment/Plan Assessment and Plan Assess & Plan/Chief Complaint Severe alcohol withdrawal requiring intubation (1) Delirium tremens (2) Elevated liver enzymes (3) Alcohol withdrawal delirium (4) Hypokalemia (5) Hypomagnesemia (6) Hypophosphatemia (7) Thrombocytopenia (8) Leukopenia (9) Alcohol use disorder (10) Opioid use disorder (11) Hypertension (12) Bipolar disorder (13) History of hepatitis C (14) DVT prophylaxis Supportive care Ventilator May need PEG and trach If SBT is unsuccessful Critical Care Ventilator Management JEN SEXTON DO Jan 02, 2023 07:29
[2023-01-02] MEDS ORDERED: FUROSEMIDE 40 MG/4 ML INJ (LASIX) IVP NR (09:30)
[2023-01-02] MEDS ORDERED: LACTULOSE SYRUP 10GM/15ML (ENULOSE) 30ML UDC PO PRN (10:15)
[2023-01-02 10:33] LABS: ABG BASE EXCESS 3.1 MMOL/L (-2.5-2.5); ABG OXYGEN SATURATION 100 % (94-100); ABG PCO2 51 MMHG (35-45); ABG PH 7.36 (7.37-7.43); ABG PO2 152 MMHG (79-93); ABG TCO2 29.6 MMOL/L (21.0-31.0)
[2023-01-02 10:49] LABS: ALLENS TEST POSITIVE; INSPIRED O2 35%; PATIENT TEMP 37.2; VENTILATOR YES
[2023-01-02] MEDS: PHENobarbital 64.8 MG (1 GRAIN) TAb PO SCH ×2 (11:04→22:07)
[2023-01-02] MEDS: ENOXAPARIN 40 MG/0.4 ML (LOVENOX) SYR SC SCH (11:04)
[2023-01-02] MEDS: FAMOTIDINE 20MG/2ML IV (PEPCID) IVP SCH (11:04)
[2023-01-02] MEDS: DexMEDEtomidine 250 ML DRIP 250 ML IV SCH (11:05)
--- NOTE | 2023-01-02 12:33 | Tele-ICU Progress Note ---
Subjective Date Seen by a Provider: Jan 02, 2023 Time Seen by a Provider: 12:33 Subjective/Events-last exam (Tele-ICU Physician , Progress Note ) Service provided via interactive audio and video telecommunications E-CARE system to a patient admitted to ICU bed in [facility]. Patient is seen today due to persistent need of ICU care Available chart/ vitals / labs / Images reviewed Video assessment done using teleICU camera, rest of exam as per RN Discussed with RN Events overnight : gastric output high on LIS , sedation cut down - diaphoretic , back to versed 10, precedex1.5 , fentanyl 350 , 16 450 +5 55 % febrile hemodynamically stable Respiratory - 35% I/O =POS Drips: Pressors- no VENT SETTINGS and ABG reviewed CANDIDATE for SBTreviewed possible contraindications including Cardiovascular Stability /Sedation Score / FI02/PEEP / ABG / CXR/ secretions Sedation, discussed with RN, RASS - 2 versed 8 , precedex1.5 , fentanyl OFF Hospital course: 12/23- 42 y/o F with no significant PMHx who presented to ED with c/o heavy alcohol use concerned about possible seizure at home. In ER noted to have progressively worsening agitation and was combative. INTUVBATED 12/24- PRVC 400/120/435/5, on versed 8 , precedex1.5 , fentanyl 200 , no Sz,phenobarb for 2 days 12/24-12/25- PRVC 16 450 +5 35 % on versed 810, precedex1.5 , fentanyl 300 , no Sz 12/26 - Vomited around NG - TF stopped 12/27- gastric output high on LIS , sedation cut down - diaphoretic , back to versed 10, precedex1.5 , fentanyl 350 , 16 450 +5 55 % 12/29-12/27- g sedation cut down - tachycardic , back to versed 10, precedex1.5 , fentanyl 350 , 16 450 +5 55 % 12/31- RASS - 2 versed 8 , precedex1.5 , desats - Fio2 35% -->60%, LASIX x1 , phenobarb and clonidin added , KUB for very distendent abd 12/31 - persistent tachycardia , elv dddimer - CTA - NEG for PE 01/01- 16 450 +5 40 % , versed 8 , precedex1.5 01/02 - Hb to 6.8 on 01/02 - TRANSFUSION 1 u PRBC - no obvious bleeding , 01/02- SBT rr 25 600 1 h with good ABG , copious secretions , week - cont vent support A/P Acute respiratory failure 2/2 AMS requiring airway protection, now with PNA ( CTA - NEG for PE 12/31 -Intubated 12/23 PRVC 16 450 +5 35% - secretions COPIOUS today but will try SBT since she is AAO and only 35% fio2 -sputum from ETT - usual floura 12/23 -01/02- SBT rr 25 600 1 h with good ABG , copious secretions , week - cont vent support FEVER 12/24- intermittent since then - cx blood neg -sputum from ETT - usual floura 12/23 - sputum 12/31 - STAPH in ETT - pending RLL suspected after aspiration -12/26 - Vomited around NG - TF stopped - zosyn started 12/27-01/01 FINISHED - will check blood cx from line and peripgh with next fever Tachycardia 12/31 - sinus , trop wnl 12/31 - started on cardizem po and p[rn beta blockers -CTA neg for PE - try pain control Distendend abdomen- IMPROVING after BM -12/26 - Vomited around NG - TF stopped, high NG output on LIS - resumed TF - will check KUB again , as per RN abd distented but not tender , no BM since adnmission - KUB done 12/31 , strarted on lactulose 12/31 Alcohol withdrawal: -Intubated for severe agitation -versed 8-10, precedex1.5 , fentanyl 300 , Off propofol given elevated TG 166 on admission. prn Ativan - thiamine , folate - phenobarb and clonidin added 12/31 possible seizure - suspected due to ETOH withdrawal - benzo prn , no AED Hypokalemia: / hypophos -replacing Transaminitis- improving - US RUQ: Hepatomegaly with diffuse steatosis.No sonographic features of cirrhosis --ammonia and coags WNL - to recheck Anemia- slow trend down - driop Hb to 6.8 on 01/02 - TRANSFUSION 1 u PRBC - no obvious bleeding -monitor stable - Iton /tibs ordered 01/01 - pending Thrombocytopenia - presumed due to ETON , RESOLVED , Meena resumed Lines : PICC 12/24 LEFT , (Central Line Necessity Reviewed) Antony: + Nutrition: TF VTE Prophylaxis: meena 40 Stress Ulcer Prophylaxis: pepsid Plans in collaboration with bedside consultants and IM MDs. Discussed with RN to reach out if any questions or concerns Case and care daily discussed on multidisciplinary rounds ( RN, PharmD, Lap Machine Tender , Respiratory Therapy, cold storage worker ) A total of 32 minutes of critical care time was devoted to this patient today, required to treat and/or prevent further deterioration of critical care condition ( as above ) I am remotely monitoring this patient from another state. I am unable to do the bedside exam, and history/physical and pertinent information is taken from other notes in the computer and bedside staff. Sepsis Event Evaluation Height, Weight, BMI Height: '" Weight: lbs. oz. kg; 25.95 BMI Method: Focused Exam Lactate Level 12/31/22 16:35: Lactic Acid Level 0.88 Exam Exam Patient acknowledged, consented, and participated in this virtual visit which was conducted using real time audio/video Vital Signs Date Time Temp Pulse Resp B/P (MAP) Pulse Ox O2 Delivery O2 Flow Rate FiO2 01/02/23 12:00 37.1 99 20 106/68 (78) 94 Mechanical Ventilator 35.00 01/02/23 11:05 105 110/69 01/02/23 11:00 37.1 105 21 113/84 (94) 98 Mechanical Ventilator 35.00 01/02/23 10:47 105 21 95 35 01/02/23 10:00 37.2 107 28 105/78 (86) 95 Mechanical Ventilator 35.00 01/02/23 09:00 111 20 103/91 (96) 95 Mechanical Ventilator 35.00 01/02/23 08:44 106 111/80 01/02/23 08:00 37.3 106 24 111/80 (87) 96 Mechanical Ventilator 35.00 01/02/23 07:42 101 19 100 35 01/02/23 07:36 109 25 95 35 01/02/23 07:00 108 01/02/23 07:00 37.7 108 24 120/86 (95) 96 Mechanical Ventilator 35.00 01/02/23 06:46 93 20 103/70 01/02/23 06:26 93 103/70 01/02/23 06:00 37.2 93 20 103/70 (81) 96 Mechanical Ventilator 35.00 01/02/23 05:46 92 105/69 01/02/23 05:00 37.6 99 23 104/71 (82) 95 Mechanical Ventilator 35.00 01/02/23 04:32 35 01/02/23 04:25 112 112/79 01/02/23 04:00 97 Mechanical Ventilator 35 01/02/23 04:00 38.0 120 27 116/81 (93) 95 Mechanical Ventilator 35.00 01/02/23 03:49 121 124/83 01/02/23 03:02 126 130/89 01/02/23 03:00 38.3 128 30 130/89 (103) 96 Mechanical Ventilator 35.00 01/02/23 02:29 120 33 98 35 01/02/23 02:26 122 125/87 01/02/23 02:21 122 125/87 01/02/23 02:00 38.3 120 18 125/87 (100) 97 Mechanical Ventilator 35.00 01/02/23 02:00 120 01/02/23 01:59 121 34 126/93 01/02/23 01:00 38.3 115 126/93 (104) 97 Mechanical Ventilator 35.00 01/02/23 00:32 35 01/02/23 00:00 38.4 111 125/90 (102) 97 Mechanical Ventilator 35.00 01/01/23 23:59 97 Mechanical Ventilator 35 01/01/23 23:23 116 117/83 01/01/23 23:00 38.5 116 117/83 (94) 96 Mechanical Ventilator 35.00 01/01/23 22:43 38.5 01/01/23 22:24 112 32 96 35 01/01/23 22:13 38.6 01/01/23 22:00 38.7 117 117/84 (95) 95 Mechanical Ventilator 35.00 01/01/23 21:00 38.7 118 115/83 (94) 94 Mechanical Ventilator 35.00 01/01/23 20:33 38.7 01/01/23 20:32 35 01/01/23 20:00 118 28 120/77 (91) 95 Mechanical Ventilator 35.00 01/01/23 20:00 95 Mechanical Ventilator 35 01/01/23 19:57 111 27 112/77 7/1/23 19:23 37.8 114 27 112/77 (89) 96 Mechanical Ventilator 35.00 01/01/23 19:23 111 112/77 01/01/23 19:11 111 01/01/23 19:10 111 26 97 35 01/01/23 19:00 110 29 91/78 (82) 96 Mechanical Ventilator 35.00 01/01/23 18:00 109 25 98/69 (77) 95 Mechanical Ventilator 35.00 01/01/23 17:00 126 124/83 (92) 93 Mechanical Ventilator 35.00 01/01/23 16:32 40 01/01/23 16:00 123 35 114/74 (87) 94 Mechanical Ventilator 35.00 01/01/23 16:00 36.2 01/01/23 16:00 95 Mechanical Ventilator 40 01/01/23 15:15 38.6 01/01/23 15:04 121 24 94 35 01/01/23 15:00 120 22 113/79 (91) 94 Mechanical Ventilator 35.00 01/01/23 14:00 123 33 112/77 (90) 95 Mechanical Ventilator 35.00 01/01/23 13:11 123 112/77 01/01/23 13:00 117 23 103/66 (77) 94 Mechanical Ventilator 35.00 01/01/23 13:00 119 I & O 01/02/23 07:00 Intake Total 4470 ml Output Total 1750 ml Balance 2720 ml Height & Weight Height: '" Weight: lbs. oz. kg; 25.95 BMI Method: General Appearance: Chronically ill, Other (Sedated and ventilated) HEENT: No PERRL/EOMI, No TMs Normal, No Normal ENT Inspection, No Pharynx Normal, No Moist Mucous Membranes, No Pale Conjunctivae (L), No Pale Conjunctivae (R), No Pharyngeal Erythema, No Photophobia, No Scleral Icterus (L), No Scleral Icterus (R), No TM Abnormal (L), No TM Abnormal (R), No Tonsillar Exudate, No Tonsillar Enlargement, No Other Neck: No Full Range of Motion, No Normal Inspection, No Non Tender, No Supple, No Carotid Bruit, No JVD, No Limited Range of Motion, No Lymphadenopathy (L), No Lymphadenopathy (R), No Tender Lateral, No Tender Midline, No Thyromegaly, No Other Respiratory: Accessory Muscle Use, Decreased Breath Sounds Cardiovascular: Regular Rate, Rhythm Capillary Refill: Less Than 3 Seconds Peripheral Pulses: 2+ Dorsalis Pedis (R), 2+ Left Dors-Pedis (L) Gastrointestinal: normal bowel sounds, non tender, soft, other (abd is distended, got MOM) Extremity: Pedal Edema (trace ankle edema) Neurologic/Psychiatric: Other (sedated) Results Lab Laboratory Tests 01/01/23 04:10 01/02/23 05:00 Assessment/Plan Assessment/Plan 1 SHELLY CLEMENT MD Jan 02, 2023 12:33
[2023-01-02] MEDS: THIAMINE 100 MG IV SCH ×3 (13:34)
[2023-01-02] MEDS: NS IV SCH ×3 (13:34)
[2023-01-02] MEDS: FOLIC ACID IV SCH ×3 (13:34)
[2023-01-02 16:14] LABS: HEMOGLOBIN 8.1 g/dL (11.5-16.0)
[2023-01-03] VITALS (8 sets, daily range): BP systolic 96–137; BP diastolic 66–103
[2023-01-03] MEDS: inSUlin ASPART (NovoLOG) 1 UNIT/0.01 ML (CHARGE PER UNIT) SQ SCH ×4 (02:07→17:36)
[2023-01-03] MEDS: fentaNYL DRIP PRE-MIX 250 ML IV SCH ×5 (02:08→21:47)
[2023-01-03] MEDS: RT-ALBUTEROL/IPRATROPIUM 3 ML (DUONEB) VIAL INH SCH ×6 (02:45→22:33)
[2023-01-03] MEDS: DexMEDEtomidine 250 ML DRIP 250 ML IV SCH ×2 (04:20→18:12)
[2023-01-03] MEDS: MIDAZOLAM DRIP PRE-MIX 100 ML IV SCH ×2 (04:21→18:11)
[2023-01-03 05:04] LABS: BASOPHILS # (AUTO) 0.1 10^3/uL (0.0-0.1); BASOPHILS % (AUTO) 1 % (0-10); EOSINOPHILS # (AUTO) 0.2 10^3/uL (0.0-0.3); EOSINOPHILS % (AUTO) 1 % (0-10); HEMATOCRIT 25 % (35-52); HEMOGLOBIN 8.1 g/dL (11.5-16.0); LYMPHOCYTES # (AUTO) 1.3 10^3/uL (1.0-4.0); LYMPHOCYTES % (AUTO) 11 % (12-44); MEAN CORPUSCULAR HEMOGLOBIN 36 pg (25-34); MEAN CORPUSCULAR HGB CONC 33 g/dL (32-36); MEAN CORPUSCULAR VOLUME 108 fL (80-99); MEAN PLATELET VOLUME 11.4 fL (9.0-12.2); MONOCYTES # (AUTO) 0.3 10^3/uL (0.0-1.0); MONOCYTES % (AUTO) 3 % (0-12); NEUTROPHILS # (AUTO) 10.2 10^3/uL (1.8-7.8); NEUTROPHILS % (AUTO) 82 % (42-75); PLATELET COUNT 458 10^3/uL (130-400); WHITE BLOOD COUNT 12.4 10^3/uL (4.3-11.0)
[2023-01-03 05:30] LABS: POTASSIUM 3.8 MMOL/L (3.6-5.0)
[2023-01-03 05:35] LABS: CREATININE SERUM 0.44 MG/DL (0.60-1.30)
[2023-01-03] MEDS: MAGNESIUM 1 GM/100 ML IVPB 100 ML IV SCH (05:49)
[2023-01-03] MEDS: KCL 20 MEQ TAB (K-DUR) PO SCH (05:51)
[2023-01-03] MEDS: POTASSIUM BICARB 20 MEQ (EFFER-K) TABLET PO SCH (05:51)
[2023-01-03] MEDS: POTASSIUM CL 10MEQ/50ML IVPB 50 ML IV SCH ×2 (06:00→06:47)
[2023-01-03] MEDS: ACETAMINOPHEN 500 MG TAB (TYLENOL) PO PRN ×2 (07:52→13:44)
[2023-01-03] MEDS: PHENobarbital 64.8 MG (1 GRAIN) TAb PO SCH ×2 (07:57→21:07)
[2023-01-03] MEDS: FAMOTIDINE 20MG/2ML IV (PEPCID) IVP SCH (08:14)
--- NOTE | 2023-01-03 09:13 | Tele-ICU Progress Note ---
Subjective Date Seen by a Provider: Jan 03, 2023 Time Seen by a Provider: 09:13 Subjective/Events-last exam (Tele-ICU Physician , Progress Note ) Service provided via interactive audio and video telecommunications E-CARE system to a patient admitted to ICU bed in [facility]. Patient is seen today due to persistent need of ICU care Available chart/ vitals / labs / Images reviewed Video assessment done using teleICU camera, rest of exam as per RN Discussed with RN Events overnight : gastric output high on LIS , sedation cut down - diaphoretic , back to versed 10, precedex1.5 , fentanyl 350 , 16 450 +5 55 % febrile hemodynamically stable Respiratory - 35% I/O =POS Drips: Pressors- no VENT SETTINGS and ABG reviewed CANDIDATE for SBTreviewed possible contraindications including Cardiovascular Stability /Sedation Score / FI02/PEEP / ABG / CXR/ secretions Sedation, discussed with RN, RASS - 2 versed 8 , precedex1.5 , fentanyl OFF Hospital course: 12/23- 42 y/o F with no significant PMHx who presented to ED with c/o heavy alcohol use concerned about possible seizure at home. In ER noted to have progressively worsening agitation and was combative. INTUVBATED 12/24- PRVC 400/120/435/5, on versed 8 , precedex1.5 , fentanyl 200 , no Sz,phenobarb for 2 days 12/24-12/25- PRVC 16 450 +5 35 % on versed 810, precedex1.5 , fentanyl 300 , no Sz 12/26 - Vomited around NG - TF stopped 12/27- gastric output high on LIS , sedation cut down - diaphoretic , back to versed 10, precedex1.5 , fentanyl 350 , 16 450 +5 55 % 12/29-12/27- g sedation cut down - tachycardic , back to versed 10, precedex1.5 , fentanyl 350 , 16 450 +5 55 % 12/31- RASS - 2 versed 8 , precedex1.5 , desats - Fio2 35% -->60%, LASIX x1 , phenobarb and clonidin added , KUB for very distendent abd 12/31 - persistent tachycardia , elv dddimer - CTA - NEG for PE 01/01- 16 450 +5 40 % , versed 8 , precedex1.5 01/02 - Hb to 6.8 on 01/02 - TRANSFUSION 1 u PRBC - no obvious bleeding , 01/02- SBT rr 25 600 1 h with good ABG , copious secretions , week - cont vent support . 01/03- TODAY STILL ON SEDATION BUT AROUSABLE. BEING TRIED ON SBT ,SO FAR DOING OK BUT NO PLAN TO EXTUBATE SHE IS ON HEAVY SEDATION which is being weaned down. ps5/35/5/peep5 A/P Acute respiratory failure 2/2 AMS requiring airway protection, now with PNA ( CTA - NEG for PE 12/31 -Intubated 12/23 PRVC 16 450 +5 35% - secretions COPIOUS today but will try SBT since she is AAO and only 35% fio2 -sputum from ETT - usual floura 12/23 -01/02- SBT rr 25 600 1 h with good ABG , copious secretions , week - cont vent support 01/03 SBT ps 5/fio2 35%/peep5 FEVER 12/24- intermittent since then - cx blood neg -sputum from ETT - usual floura 12/23 - sputum 12/31 - STAPH in ETT - pending RLL suspected after aspiration -12/26 - Vomited around NG - TF stopped - zosyn started 12/27-01/01 FINISHED - will check blood cx from line and peripgh with next fever sputum c/s MSSA Tachycardia 12/31 - sinus , trop wnl 12/31 - started on cardizem po and p[rn beta blockers -CTA neg for PE - try pain control Distendend abdomen- IMPROVING after BM -12/26 - Vomited around NG - TF stopped, high NG output on LIS - resumed TF - will check KUB again , as per RN abd distented but not tender , no BM since adnmission - KUB done 12/31 SHOWED INCREASED FECAL LOAD, strarted on lactulose 12/31 Alcohol withdrawal: -Intubated for severe agitation improving with sedation which is being weaned. -versed 8- down to 5 this am, precedex1.5 , fentanyl 300 down to 250 , Off propofol given elevated TG 166 on admission. prn Ativan - thiamine , folate - phenobarb and clonidin added 12/31 possible seizure - suspected due to ETOH withdrawal - benzo prn , no AED Hypokalemia: / hypophos -replacing Transaminitis- improving - US RUQ: Hepatomegaly with diffuse steatosis.No sonographic features of cirrhosis --ammonia and coags WNL - to recheck Anemia- slow trend down - driop Hb to 6.8 on 01/02 - TRANSFUSION 1 u PRBC - no obvious bleeding -monitor stable - Iton /tibs ordered 01/01 - pending Thrombocytopenia - presumed due to ETON , RESOLVED , Meena resumed Lines : PICC 12/24 LEFT , (Central Line Necessity Reviewed) Antony: + Nutrition: TF VTE Prophylaxis: meena 40 Stress Ulcer Prophylaxis: pepsid Plans in collaboration with bedside consultants and IM MDs. Discussed with RN to reach out if any questions or concerns Case and care daily discussed on multidisciplinary rounds ( RN, PharmD, Style Advisor , Respiratory Therapy, target worker ) A total of 35 minutes of critical care time was devoted to this patient today, required to treat and/or prevent further deterioration of critical care condition ( as above ) I am remotely monitoring this patient from another state. I am unable to do the bedside exam, and history/physical and pertinent information is taken from other notes in the computer and bedside staff. Sepsis Event Evaluation Height, Weight, BMI Height: '" Weight: lbs. oz. kg; 24.64 BMI Method: Focused Exam Lactate Level 12/31/22 16:35: Lactic Acid Level 0.88 Exam Exam Patient acknowledged, consented, and participated in this virtual visit which was conducted using real time audio/video Vital Signs Date Time Temp Pulse Resp B/P (MAP) Pulse Ox O2 Delivery O2 Flow Rate FiO2 01/03/23 08:31 38.4 01/03/23 08:16 Mechanical Ventilator 40.00 01/03/23 08:00 38.6 118 21 123/81 (95) 91 Mechanical Ventilator 35.00 01/03/23 07:52 38.7 01/03/23 07:50 38.4 01/03/23 07:28 97 01/03/23 07:00 38.1 105 33 102/83 (89) 93 Mechanical Ventilator 35.00 01/03/23 06:50 85 20 94 35 01/03/23 06:08 87 100/67 01/03/23 06:00 37.9 20 94 Mechanical Ventilator 35.00 01/03/23 06:00 37.9 88 20 100/68 (79) 93 Mechanical Ventilator 35.00 01/03/23 05:27 85 101/69 01/03/23 05:00 37.9 90 20 101/61 (74) 91 Mechanical Ventilator 35.00 01/03/23 04:21 93 20 97/63 01/03/23 04:20 93 97/63 01/03/23 04:00 35 01/03/23 04:00 38.0 95 18 108/75 (86) 92 Mechanical Ventilator 35.00 01/03/23 04:00 92 35 01/03/23 03:50 37.4 01/03/23 03:00 37.2 85 20 100/67 (78) 94 Mechanical Ventilator 35.00 01/03/23 02:45 62 20 94 35 01/03/23 02:08 84 100/67 01/03/23 02:08 81 99/66 01/03/23 02:00 37.1 87 20 99/66 (77) 94 Mechanical Ventilator 35.00 01/03/23 01:00 37.1 100 20 105/74 (84) 89 Mechanical Ventilator 35.00 01/03/23 01:00 94 01/03/23 00:28 36.7 96 20 105/75 (85) 99 Mechanical Ventilator 35.00 01/03/23 00:00 35 01/02/23 23:27 91 35 01/02/23 23:00 36.4 82 20 94/63 (72) 96 Mechanical Ventilator 35.00 01/02/23 22:20 77 20 97 35 01/02/23 22:08 79 95/66 01/02/23 21:14 79 95/66 01/02/23 21:00 37.3 90 20 93/63 (70) 91 Mechanical Ventilator 35.00 01/02/23 20:00 36.4 01/02/23 20:00 92 35 01/02/23 20:00 37 106 20 120/90 (103) 97 Mechanical Ventilator 35.00 01/02/23 20:00 35 01/02/23 19:49 92 22 97 35 01/02/23 19:00 88 01/02/23 19:00 37 88 20 100/63 (73) 95 Mechanical Ventilator 35.00 01/02/23 18:00 36.7 86 20 109/75 (86) 97 Mechanical Ventilator 35.00 01/02/23 17:34 86 106/70 01/02/23 17:14 98 106/70 01/02/23 17:14 98 21 106/70 01/02/23 17:00 36.5 87 20 105/67 (80) 95 Mechanical Ventilator 35.00 01/02/23 16:00 95 Mechanical Ventilator 35 01/02/23 16:00 36.9 98 21 106/70 (80) 96 Mechanical Ventilator 35.00 01/02/23 16:00 36.1 01/02/23 15:05 98 105/66 01/02/23 15:00 37.2 98 20 105/66 (75) 94 Mechanical Ventilator 35.00 01/02/23 14:39 93 21 93 35 01/02/23 13:34 89 105/73 01/02/23 13:00 36.9 89 20 105/73 (83) 95 Mechanical Ventilator 35.00 01/02/23 12:56 91 01/02/23 12:44 93 105/77 01/02/23 12:32 35 01/02/23 12:00 37.1 99 20 106/68 (78) 94 Mechanical Ventilator 35.00 01/02/23 12:00 92 Mechanical Ventilator 35 01/02/23 11:05 105 110/69 01/02/23 11:00 37.1 105 21 113/84 (94) 98 Mechanical Ventilator 35.00 01/02/23 10:47 105 21 95 35 01/02/23 10:00 37.2 107 28 105/78 (86) 95 Mechanical Ventilator 35.00 I & O 01/03/23 07:00 Intake Total 4771.2 ml Output Total 2525 ml Balance 2246.2 ml Height & Weight Height: '" Weight: lbs. oz. kg; 24.64 BMI Method: General Appearance: No Apparent Distress, WD/WN, Chronically ill, Other (Awake and alert) HEENT: No PERRL/EOMI, No TMs Normal, No Normal ENT Inspection, No Pharynx Normal, No Moist Mucous Membranes, No Pale Conjunctivae (L), No Pale Conjunctivae (R), No Pharyngeal Erythema, No Photophobia, No Scleral Icterus (L), No Scleral Icterus (R), No TM Abnormal (L), No TM Abnormal (R), No Tonsillar Exudate, No Tonsillar Enlargement, No Other Neck: No Full Range of Motion, No Normal Inspection, No Non Tender, No Supple, No Carotid Bruit, No JVD, No Limited Range of Motion, No Lymphadenopathy (L), No Lymphadenopathy (R), No Tender Lateral, No Tender Midline, No Thyromegaly, No Other Respiratory: No Accessory Muscle Use, Decreased Breath Sounds Cardiovascular: Regular Rate, Rhythm Capillary Refill: Less Than 3 Seconds Peripheral Pulses: 2+ Dorsalis Pedis (R), 2+ Left Dors-Pedis (L) Gastrointestinal: normal bowel sounds, non tender, soft, other (abd is distended, got MOM) Extremity: Pedal Edema (trace ankle edema) Neurologic/Psychiatric: Other (sedated) Results Lab Laboratory Tests 01/02/23 05:00 01/02/23 16:10 01/03/23 04:10 Assessment/Plan Assessment/Plan as above Critical Care: Ventilator Management Time spent with patient (mins): 35 REINALDO HERNANDEZ MD Jan 03, 2023 09:13
--- NOTE | 2023-01-03 09:13 | Diagnostic Imaging Report ---
INDICATION: Pneumonia. COMPARISON: 12/30/2022 TECHNIQUE: Single radiograph of the chest dated 01/03/2023. FINDINGS: Endotracheal tube and left-sided PICC line are again identified, unchanged. Enteric catheter is again identified extending into the left upper abdomen, the distal tip is not included in [id number]. Additional placement of an additional enteric catheter versus probe is noted with the distal tip overlying the lower aspect of the esophagus. The cardiac silhouette is within normal limits in size. No significant pulmonary vascular congestion. Interval improvement of previously noted left midlung opacities. The lungs appear clear of focal pulmonary opacity. No significant pleural effusion. No pneumothorax. No acute osseous abnormality. IMPRESSION: Improved aeration of the lungs with improved and essentially resolved left midlung opacities. Interval placement of additional enteric catheter versus probe with the distal tip overlying the lower aspect of the esophagus. Otherwise, lines and tubes are unchanged. Dictated by: Dictated on workstation # [id number]
[2023-01-03] MEDS: ENOXAPARIN 40 MG/0.4 ML (LOVENOX) SYR SC SCH (09:54)
--- NOTE | 2023-01-03 11:02 | Progress Note ---
Subjective Subjective/Events-last exam Febrile this morning. Doing well on SBT, but is moderately agitated. Focused Exam Lactate Level 12/31/22 16:35: Lactic Acid Level 0.88 Objective Exam Last Set of Vital Signs Vital Signs Date Time Temp Pulse Resp B/P (MAP) Pulse Ox O2 Delivery O2 Flow Rate FiO2 01/03/23 10:06 106 22 98 35 01/03/23 10:00 38.0 115/86 (96) Mechanical Ventilator 35.00 Capillary Refill : Less Than 3 Seconds I&O Intake and Output 01/03/23 00:00 Intake Total 4521.2 ml Output Total 2900 ml Balance 1621.2 ml IV Total 1161.2 ml Tube Feeding 2880 ml Enteral Flush 400 ml Other 80 ml Output Urine Total 2900 ml General: Alert, Other (intubated, attempting to write, but unable to write clearly) Lungs: Clear to Auscultation Heart: Regular Rate Abdomen: Normal Bowel Sounds, Soft Results/Procedures Lab Laboratory Tests 01/02/23 11:34: Glucometer 138H 01/02/23 16:10: Hemoglobin 8.1L, Hematocrit 24L 01/02/23 18:08: Glucometer 87 01/02/23 23:54: Glucometer 111H 01/03/23 04:10: White Blood Count 12.4H, Red Blood Count 2.27L, Hemoglobin 8.1L, Hematocrit 25L, Mean Corpuscular Volume 108H, Mean Corpuscular Hemoglobin 36H, Mean Corpuscular Hemoglobin Concent 33, Red Cell Distribution Width 17.9H, Platelet Count 458H, Mean Platelet Volume 11.4, Immature Granulocyte % (Auto) 2, Neutrophils (%) (Auto) 82H, Lymphocytes (%) (Auto) 11L, Monocytes (%) (Auto) 3, Eosinophils (%) (Auto) 1, Basophils (%) (Auto) 1, Neutrophils # (Auto) 10.2H, Lymphocytes # (Auto) 1.3, Monocytes # (Auto) 0.3, Eosinophils # (Auto) 0.2, Basophils # (Auto) 0.1, Immature Granulocyte # (Auto) 0.3H, Sodium Level 137, Potassium Level 3.8, Chloride Level 103, Carbon Dioxide Level 28, Anion Gap 6, Blood Urea Nitrogen 13 , Creatinine 0.44L, Estimat Glomerular Filtration Rate 125, BUN/Creatinine Ratio 30, Glucose Level 116H, Calcium Level 8.0L, Phosphorus Level 2.0L, Magnesium Level 2.0 Microbiology 12/30/22 Gram Stain - Final, Complete 12/30/22 Sputum Culture - Final, Complete Staphylococcus aureus 12/24/22 Blood Culture - Final, Complete No growth Radiology CT head 12/23/22: IMPRESSION: No acute intracranial abnormality is detected although there is mild bilateral maxillary sinus and extensive right sphenoid sinus disease. CXR 12/23/22: IMPRESSION: No evidence of acute abnormality or complication post intubation. Assessment/Plan Assessment/Plan (1) Fever Status: Acute Assessment & Plan: Febrile this morning, zosyn ended on 7 am, will start cefazolin due to MSSA in sputum. (2) Delirium tremens Status: Acute Assessment & Plan: CT head without acute findings. Intubated, sedated on dexmedetomidine, fentanyl and midazolam, alcohol withdrawal protocol with CIWA and IV lorazepam, daily banana bag on admit. 01/03- has had persistent need for high sedation and ventilation, currently doing SBT and doing well, appreciate [facility] ICU recommendations. (3) Elevated liver enzymes Status: Chronic Assessment & Plan: Chart review shows LFTs minimally elevated (AST/ALT in the 40s) 10/2021, so significantly above previous baseline. Consider acute alcoholic hepatitis. Check PT/INR, PTT and hepatitis panel as well as liver ultrasound with doppler to eval for other causes. 12/24 trending down. Liver US without mass or cirrhosis. Hepatitis panel positive only for Hep C antibody. (4) Alcohol withdrawal delirium Status: Acute (5) Hypokalemia Status: Resolved Assessment & Plan: Marked on admit, replacing with 60 mEq initially, recheck after and if near normal, will use protocol replacement. 12/24 improved to 3.3, continue replacing. (6) Hypomagnesemia Status: Resolved Assessment & Plan: Replaced (7) Hypophosphatemia Status: Acute Assessment & Plan: Replace and recheck. (8) Thrombocytopenia Status: Resolved Assessment & Plan: Last check at clinic 10/2021 CBC was normal. Suspect due to alcohol use/liver failure. Trending down early in admit, now has thrombocytosis (9) Leukopenia Status: Resolved Assessment & Plan: Previously normal a year ago. Suspect due to liver disease, normal 12/24 (10) Alcohol use disorder Status: Chronic (11) Opioid use disorder Status: Chronic Assessment & Plan: Per clinic chart, on Suboxone prescribed by Dr. Godoy, however, unable to confirm if still taking, was last seen at [facility] October 2021. (12) Hypertension Status: Chronic Assessment & Plan: Borderline hypotensive after intubation, hold home medications, monitor. (13) Bipolar disorder Status: Chronic (14) History of hepatitis C Status: Chronic Assessment & Plan: Per clinic records, treated in 2014 with good response, negative viral PCR in 2018. Check acute hepatitis panel given acute hepatitis, but Hep C antibody anticipated to be positive, if remainder of acute testing negative, check Hep C PCR if liver enzymes persistently markedly elevated. (15) DVT prophylaxis Status: Acute Assessment & Plan: Enoxaparin BRADLEY MYERS MD Jan 03, 2023 11:02
[2023-01-03] MEDS: NS IV SCH ×3 (12:51)
[2023-01-03] MEDS: THIAMINE 100 MG IV SCH ×3 (12:51)
[2023-01-03] MEDS: FOLIC ACID IV SCH ×3 (12:51)
[2023-01-03] MEDS ORDERED: POTASSIUM PHOSPHATE INJ 30 MM in NS (IVPB) 250 ML IV ONE (13:00)
[2023-01-03] MEDS: LORazepam INJ 2 MG/ML (ATIVAN) VIAL IV PRN (13:41)
[2023-01-03] MEDS: ceFAZolin INJECTION 2,000 MG in NS (IVPB) 50 ML IV SCH ×2 (13:44→21:08)
[2023-01-03] MEDS ORDERED: D5W IV SCH (18:00)
[2023-01-03] MEDS ORDERED: CEFAZOLIN IV SCH (18:00)
[2023-01-04 02:21] VITALS: BP 122/89
[2023-01-04] MEDS: RT-ALBUTEROL/IPRATROPIUM 3 ML (DUONEB) VIAL INH SCH ×6 (02:21→22:12)
[2023-01-04] MEDS: inSUlin ASPART (NovoLOG) 1 UNIT/0.01 ML (CHARGE PER UNIT) SQ SCH ×4 (03:02→17:22)
[2023-01-04] MEDS: fentaNYL DRIP PRE-MIX 250 ML IV SCH ×3 (03:10→15:22)
[2023-01-04 04:42] LABS: BASOPHILS # (AUTO) 0.1 10^3/uL (0.0-0.1); BASOPHILS % (AUTO) 1 % (0-10); EOSINOPHILS # (AUTO) 0.1 10^3/uL (0.0-0.3); EOSINOPHILS % (AUTO) 1 % (0-10); HEMATOCRIT 25 % (35-52); HEMOGLOBIN 8.2 g/dL (11.5-16.0); LYMPHOCYTES # (AUTO) 1.5 10^3/uL (1.0-4.0); LYMPHOCYTES % (AUTO) 12 % (12-44); MEAN CORPUSCULAR HEMOGLOBIN 35 pg (25-34); MEAN CORPUSCULAR HGB CONC 33 g/dL (32-36); MEAN CORPUSCULAR VOLUME 108 fL (80-99); MEAN PLATELET VOLUME 11.5 fL (9.0-12.2); MONOCYTES # (AUTO) 0.4 10^3/uL (0.0-1.0); MONOCYTES % (AUTO) 3 % (0-12); NEUTROPHILS # (AUTO) 9.6 10^3/uL (1.8-7.8); NEUTROPHILS % (AUTO) 80 % (42-75); PLATELET COUNT 364 10^3/uL (130-400); WHITE BLOOD COUNT 12.1 10^3/uL (4.3-11.0)
[2023-01-04] MEDS: LORazepam INJ 2 MG/ML (ATIVAN) VIAL IV PRN (04:48)
[2023-01-04 04:49] LABS: POTASSIUM 4.5 MMOL/L (3.6-5.0)
[2023-01-04 04:50] LABS: CALCIUM 8.1 MG/DL (8.5-10.1)
[2023-01-04 04:55] LABS: CREATININE SERUM 0.43 MG/DL (0.60-1.30)
[2023-01-04] MEDS: POTASSIUM CL 10MEQ/50ML IVPB 50 ML IV SCH (05:16)
[2023-01-04] MEDS: MAGNESIUM 1 GM/100 ML IVPB 100 ML IV SCH (05:16)
[2023-01-04] MEDS: POTASSIUM BICARB 20 MEQ (EFFER-K) TABLET PO SCH (05:16)
[2023-01-04] MEDS: KCL 20 MEQ TAB (K-DUR) PO SCH (05:17)
[2023-01-04] MEDS: ceFAZolin INJECTION 2,000 MG in NS (IVPB) 50 ML IV SCH ×3 (05:29→22:54)
[2023-01-04 07:26] VITALS: BP 116/94
[2023-01-04] MEDS: PHENobarbital 64.8 MG (1 GRAIN) TAb PO SCH ×2 (08:39→20:04)
[2023-01-04] MEDS: FAMOTIDINE 20MG/2ML IV (PEPCID) IVP SCH (08:39)
[2023-01-04] MEDS: MIDAZOLAM DRIP PRE-MIX 100 ML IV SCH (08:40)
--- NOTE | 2023-01-04 08:47 | Tele-ICU Progress Note ---
Subjective Date Seen by a Provider: Jan 04, 2023 Time Seen by a Provider: 08:47 Subjective/Events-last exam (Tele-ICU Physician , Progress Note ) Service provided via interactive audio and video telecommunications E-CARE system to a patient admitted to ICU bed in [facility]. Patient is seen today due to persistent need of ICU care Available chart/ vitals / labs / Images reviewed Video assessment done using teleICU camera, rest of exam as per RN Discussed with RN Events overnight : gastric output high on LIS , sedation cut down - diaphoretic , back to versed 10, precedex1.5 , fentanyl 350 , 16 450 +5 55 % febrile hemodynamically stable Respiratory - 35% I/O =POS Drips: Pressors- no VENT SETTINGS and ABG reviewed CANDIDATE for SBTreviewed possible contraindications including Cardiovascular Stability /Sedation Score / FI02/PEEP / ABG / CXR/ secretions Sedation, discussed with RN, RASS - 2 versed 8 , precedex1.5 , fentanyl OFF Hospital course: 12/23- 42 y/o F with no significant PMHx who presented to ED with c/o heavy alcohol use concerned about possible seizure at home. In ER noted to have progressively worsening agitation and was combative. INTUVBATED 12/24- PRVC 400/120/435/5, on versed 8 , precedex1.5 , fentanyl 200 , no Sz,phenobarb for 2 days 12/24-12/25- PRVC 16 450 +5 35 % on versed 810, precedex1.5 , fentanyl 300 , no Sz 12/26 - Vomited around NG - TF stopped 12/27- gastric output high on LIS , sedation cut down - diaphoretic , back to versed 10, precedex1.5 , fentanyl 350 , 16 450 +5 55 % 12/29-12/27- g sedation cut down - tachycardic , back to versed 10, precedex1.5 , fentanyl 350 , 16 450 +5 55 % 12/31- RASS - 2 versed 8 , precedex1.5 , desats - Fio2 35% -->60%, LASIX x1 , phenobarb and clonidin added , KUB for very distendent abd 12/31 - persistent tachycardia , elv dddimer - CTA - NEG for PE 01/01- 16 450 +5 40 % , versed 8 , precedex1.5 01/02 - Hb to 6.8 on 01/02 - TRANSFUSION 1 u PRBC - no obvious bleeding , 01/02- SBT rr 25 600 1 h with good ABG , copious secretions , weak - cont vent support 01/03-01/03- TODAY STILL ON SEDATION BUT AROUSABLE. BEING TRIED ON SBT ,SO FAR DOING OK BUT NO PLAN TO EXTUBATE SHE IS ON HEAVY SEDATION which is being weaned down. ps5/35/5/peep5 A/P Acute respiratory failure 2/2 AMS requiring airway protection, now with PNA ( CTA - NEG for PE 12/31 -Intubated 12/23 PRVC 16 450 +5 35% - secretions COPIOUS today but will try SBT since she is AAO and only 30% fio2 -sputum from ETT - usual floura 12/23 01/04- SBT planned for today qith hopes to extubate FEVER 12/24- intermittent since then - cx blood neg -sputum from ETT - usual floura 12/23 - sputum 12/31 - STAPH in ETT - pending RLL suspected after aspiration -12/26 - Vomited around NG - TF stopped - zosyn started 12/27-01/01 FINISHED - will check blood cx from line and periph with next fever Tachycardia 12/31 - sinus , trop wnl 12/31 - started on cardizem po and p[rn beta blockers -CTA neg for PE - try pain control Distendend abdomen- IMPROVING after BM -12/26 - Vomited around NG - TF stopped, high NG output on LIS - resumed TF - will check KUB again , as per RN abd distented but not tender , no BM since adnmission - KUB done 12/31 , strarted on lactulose 12/31 -gastric output high on LIS - RESOLVED - on TF bow Alcohol withdrawal: -Intubated for severe agitation -versed 8-10, precedex1.5 , fentanyl 300 , Off propofol given elevated TG 166 on admission. prn Ativan - thiamine , folate - phenobarb and clonidine added 12/31 possible seizure - suspected due to ETOH withdrawal - benzo prn , no AED Hypokalemia: / hypophos -replacing Transaminitis- improving - US RUQ: Hepatomegaly with diffuse steatosis.No sonographic features of cirrhosis --ammonia and coags WNL - to recheck Anemia- slow trend down - driop Hb to 6.8 on 01/02 - TRANSFUSION 1 u PRBC - no obvious bleeding -monitor stable - Iton /tibs ordered 01/01 - pending Thrombocytopenia - presumed due to ETON , RESOLVED , Meena resumed Lines : PICC 12/24 LEFT , (Central Line Necessity Reviewed) Antony: + Nutrition: TF VTE Prophylaxis: meena 40 Stress Ulcer Prophylaxis: pepsid Plans in collaboration with bedside consultants and IM MDs. Discussed with RN to reach out if any questions or concerns Case and care daily discussed on multidisciplinary rounds ( RN, PharmD, Construction Project Mgr , Respiratory Therapy, rodent control worker ) A total of 32 minutes of critical care time was devoted to this patient today, required to treat and/or prevent further deterioration of critical care condition ( as above ) I am remotely monitoring this patient from another state. I am unable to do the bedside exam, and history/physical and pertinent information is taken from other notes in the computer and bedside staff. Sepsis Event Evaluation Height, Weight, BMI Height: '" Weight: lbs. oz. kg; 24.60 BMI Method: Exam Exam Patient acknowledged, consented, and participated in this virtual visit which was conducted using real time audio/video Vital Signs Date Time Temp Pulse Resp B/P (MAP) Pulse Ox O2 Delivery O2 Flow Rate FiO2 01/04/23 08:41 95 131/94 01/04/23 08:40 88 23 131/94 01/04/23 08:00 81 119/84 (96) 97 Mechanical Ventilator 30.00 01/04/23 07:55 36.5 01/04/23 07:24 77 01/04/23 07:00 76 20 118/91 (100) 95 Mechanical Ventilator 30.00 01/04/23 06:00 96 20 101/86 (91) Mechanical Ventilator 30.00 01/04/23 05:00 82 20 128/93 (105) 95 Mechanical Ventilator 30.00 01/04/23 04:15 98 20 110/94 (104) 100 Mechanical Ventilator 30.00 01/04/23 04:00 35 01/04/23 04:00 98 35 01/04/23 03:10 83 116/94 01/04/23 03:00 80 20 136/95 (110) 96 Mechanical Ventilator 30.00 01/04/23 02:21 70 20 97 30 01/04/23 02:00 72 20 119/88 (98) 98 Mechanical Ventilator 30.00 01/04/23 01:47 80 136/96 01/04/23 01:00 90 20 123/82 (96) 94 Mechanical Ventilator 30.00 01/04/23 01:00 84 01/04/23 00:00 79 20 108/80 (89) 95 Mechanical Ventilator 30.00 01/04/23 00:00 35 01/03/23 23:27 96 35 01/03/23 23:00 79 20 118/87 (97) 97 Mechanical Ventilator 30.00 01/03/23 22:33 73 20 97 30 01/03/23 22:12 76 120/87 01/03/23 22:00 80 20 109/81 (89) 95 Mechanical Ventilator 30.00 01/03/23 21:47 79 113/83 01/03/23 21:00 71 20 112/77 (88) 97 Mechanical Ventilator 30.00 01/03/23 20:00 83 20 115/80 (90) 96 Mechanical Ventilator 30.00 01/03/23 19:51 83 113/76 01/03/23 19:46 97 35 01/03/23 19:46 35 01/03/23 19:00 81 01/03/23 19:00 81 20 108/74 (84) 96 Mechanical Ventilator 30.00 01/03/23 18:52 80 20 96 30 01/03/23 18:14 Mechanical Ventilator 30.00 01/03/23 18:12 98 107/76 01/03/23 18:11 98 22 107/76 01/03/23 18:00 77 20 108/73 (85) 98 Mechanical Ventilator 35.00 01/03/23 17:00 98 22 107/76 (86) 100 Mechanical Ventilator 35.00 01/03/23 16:36 35 01/03/23 16:11 98 35 01/03/23 16:00 92 30 112/87 (95) 100 Mechanical Ventilator 35.00 01/03/23 15:51 84 112/74 01/03/23 15:30 36.9 01/03/23 15:00 88 30 117/79 (92) 97 Mechanical Ventilator 35.00 01/03/23 14:38 37.5 01/03/23 14:36 37.5 01/03/23 14:00 111 23 131/88 (102) 98 Mechanical Ventilator 35.00 01/03/23 14:00 111 131/88 01/03/23 13:44 38.0 01/03/23 13:30 105 29 95 35 01/03/23 13:17 109 01/03/23 13:00 37.7 116 19 124/109 (114) 99 Mechanical Ventilator 35.00 01/03/23 12:32 40 01/03/23 12:16 94 35 01/03/23 12:00 37.7 96 15 108/71 (83) 97 Mechanical Ventilator 35.00 01/03/23 11:23 37.4 01/03/23 11:00 37.7 105 22 116/103 (107) 99 Mechanical Ventilator 35.00 01/03/23 10:06 106 22 98 35 01/03/23 10:00 38.0 113 29 115/86 (96) 97 Mechanical Ventilator 35.00 01/03/23 09:56 112 100/68 01/03/23 09:54 112 100/68 01/03/23 09:00 38.3 112 21 111/65 (80) 97 Mechanical Ventilator 40.00 I & O 01/04/23 07:00 Intake Total 3360 ml Output Total 1800 ml Balance 1560 ml Height & Weight Height: '" Weight: lbs. oz. kg; 24.60 BMI Method: General Appearance: No Apparent Distress, WD/WN, Chronically ill, Other (Awake and alert) HEENT: No PERRL/EOMI, No TMs Normal, No Normal ENT Inspection, No Pharynx Normal, No Moist Mucous Membranes, No Pale Conjunctivae (L), No Pale Conjunctivae (R), No Pharyngeal Erythema, No Photophobia, No Scleral Icterus (L), No Scleral Icterus (R), No TM Abnormal (L), No TM Abnormal (R), No Tonsillar Exudate, No Tonsillar Enlargement, No Other Neck: No Full Range of Motion, No Normal Inspection, No Non Tender, No Supple, No Carotid Bruit, No JVD, No Limited Range of Motion, No Lymphadenopathy (L), No Lymphadenopathy (R), No Tender Lateral, No Tender Midline, No Thyromegaly, No Other Respiratory: No Accessory Muscle Use, Decreased Breath Sounds Cardiovascular: Regular Rate, Rhythm Capillary Refill: Less Than 3 Seconds Peripheral Pulses: 2+ Dorsalis Pedis (R), 2+ Left Dors-Pedis (L) Gastrointestinal: normal bowel sounds, non tender, soft, other (abd is distended, got MOM) Extremity: Pedal Edema (trace ankle edema) Neurologic/Psychiatric: Other (sedated) Results Lab Laboratory Tests 01/02/23 16:10 01/03/23 04:10 01/04/23 04:33 Assessment/Plan Assessment/Plan 1 SHELLY CLEMENT MD Jan 04, 2023 08:47
[2023-01-04 08:51] VITALS: BP 138/96
[2023-01-04] MEDS: ENOXAPARIN 40 MG/0.4 ML (LOVENOX) SYR SC SCH (10:21)
[2023-01-04 10:49] VITALS: BP 138/96
--- NOTE | 2023-01-04 11:22 | Progress Note ---
Subjective Subjective/Events-last exam Extubated this morning. Able to state name and date and that she is in the hospital because "I couldn't breathe". 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 Objective Exam Last Set of Vital Signs Vital Signs Date Time Temp Pulse Resp B/P (MAP) Pulse Ox O2 Delivery O2 Flow Rate FiO2 01/04/23 11:08 High Flow N/C 3.00 01/04/23 10:00 79 140/101 (114) 96 01/04/23 08:40 23 01/04/23 08:00 35 01/04/23 07:55 36.5 Capillary Refill : Less Than 3 Seconds I&O Intake and Output 01/04/23 00:00 Intake Total 3800 ml Output Total 1075 ml Balance 2725 ml Intake Oral 0 ml IV Total 1400 ml Tube Feeding 1600 ml Other 800 ml Output Urine Total 1075 ml General: Alert, Mild Distress Lungs: Clear to Auscultation, Normal Air Movement Heart: Regular Rate Abdomen: Normal Bowel Sounds, Soft Extremities: Other (trace edema) Neuro: Other (speech slightly mumbled, having some restless movements of legs and arms) Results/Procedures Lab Laboratory Tests 01/03/23 11:35: Glucometer 121H 01/03/23 17:30: Glucometer 134H 01/04/23 03:00: Glucometer 119H 01/04/23 04:33: White Blood Count 12.1H, Red Blood Count 2.34L, Hemoglobin 8.2L, Hematocrit 25L, Mean Corpuscular Volume 108H, Mean Corpuscular Hemoglobin 35H, Mean Corpuscular Hemoglobin Concent 33, Red Cell Distribution Width 16.8H, Platelet Count 364, Mean Platelet Volume 11.5, Immature Granulocyte % (Auto) 4, Neutrophils (%) (Auto) 80H, Lymphocytes (%) (Auto) 12, Monocytes (%) (Auto) 3, Eosinophils (%) (Auto) 1, Basophils (%) (Auto) 1, Neutrophils # (Auto) 9.6H, Lymphocytes # (Auto) 1.5, Monocytes # (Auto) 0.4, Eosinophils # (Auto) 0.1, Basophils # (Auto) 0.1, Immature Granulocyte # (Auto) 0.4H, Sodium Level 133L, Potassium Level 4.5, Chloride Level 103, Carbon Dioxide Level 23, Anion Gap 7, Blood Urea Nitrogen 9, Creatinine 0.43L, Estimat Glomerular Filtration Rate 125, BUN/Creatinine Ratio 21, Glucose Level 109H, Calcium Level 8.1L Microbiology 12/30/22 Gram Stain - Final, Complete 12/30/22 Sputum Culture - Final, Complete Staphylococcus aureus 12/24/22 Blood Culture - Final, Complete No growth Radiology CT head 12/23/22: IMPRESSION: No acute intracranial abnormality is detected although there is mild bilateral maxillary sinus and extensive right sphenoid sinus disease. CXR 12/23/22: IMPRESSION: No evidence of acute abnormality or complication post intubation. Assessment/Plan Assessment/Plan (1) Fever Status: Acute Assessment & Plan: 01/03 Febrile this morning, zosyn ended on 01/02 am, will start cefazolin due to MSSA in sputum. (2) Delirium tremens Status: Acute Assessment & Plan: CT head without acute findings. Intubated, sedated on dexmedetomidine, fentanyl and midazolam, alcohol withdrawal protocol with CIWA and IV lorazepam, daily banana bag on admit. 01/03- has had persistent need for high sedation and ventilation, currently doing SBT and doing well, appreciate [facility] ICU recommendations. 01/04 extubated, remains on some Precedex and fentanyl, weaning slowly due to marked agitation previously. (3) Elevated liver enzymes Status: Chronic Assessment & Plan: Chart review shows LFTs minimally elevated (AST/ALT in the 40s) 10/2021, so significantly above previous baseline. Consider acute alcoholic hepatitis. Check PT/INR, PTT and hepatitis panel as well as liver ultrasound with doppler to eval for other causes. 12/24 trending down. Liver US without mass or cirrhosis. Hepatitis panel positive only for Hep C antibody. (4) Alcohol withdrawal delirium Status: Acute (5) Hypokalemia Status: Resolved Assessment & Plan: Marked on admit, replacing with 60 mEq initially, recheck after and if near normal, will use protocol replacement. 12/24 improved to 3.3, continue replacing. (6) Hypomagnesemia Status: Resolved Assessment & Plan: Replaced (7) Hypophosphatemia Status: Acute Assessment & Plan: Replace and recheck. (8) Thrombocytopenia Status: Resolved Assessment & Plan: Last check at clinic 10/2021 CBC was normal. Suspect due to alcohol use/liver failure. Trending down early in admit, now has thrombocytosis (9) Leukopenia Status: Resolved Assessment & Plan: Previously normal a year ago. Suspect due to liver disease, normal 12/24 (10) Alcohol use disorder Status: Chronic (11) Opioid use disorder Status: Chronic Assessment & Plan: Per clinic chart, on Suboxone prescribed by Dr. Godoy, however, unable to confirm if still taking, was last seen at [facility] October 2021. (12) Hypertension Status: Chronic Assessment & Plan: Borderline hypotensive after intubation, hold home medications, monitor. (13) Bipolar disorder Status: Chronic (14) History of hepatitis C Status: Chronic Assessment & Plan: Per clinic records, treated in 2014 with good response, ne gative viral PCR in 2018. Check acute hepatitis panel given acute hepatitis, but Hep C antibody anticipated to be positive, if remainder of acute testing negative, check Hep C PCR if liver enzymes persistently markedly elevated. (15) DVT prophylaxis Status: Acute Assessment & Plan: Enoxaparin BRADLEY MYERS MD Jan 04, 2023 11:22
[2023-01-04] MEDS: THIAMINE 100 MG IV SCH ×3 (13:30)
[2023-01-04] MEDS: DexMEDEtomidine 250 ML DRIP 250 ML IV SCH (13:30)
[2023-01-04] MEDS: FOLIC ACID IV SCH ×3 (13:30)
[2023-01-04] MEDS: NS IV SCH ×3 (13:30)
[2023-01-05] MEDS: RT-ALBUTEROL/IPRATROPIUM 3 ML (DUONEB) VIAL INH SCH (03:09)
[2023-01-05 04:12] LABS: BASOPHILS # (AUTO) 0.1 10^3/uL (0.0-0.1); BASOPHILS % (AUTO) 0 % (0-10); EOSINOPHILS % (AUTO) 0 % (0-10); HEMATOCRIT 27 % (35-52); HEMOGLOBIN 9.4 g/dL (11.5-16.0); LYMPHOCYTES % (AUTO) 5 % (12-44); MEAN CORPUSCULAR HEMOGLOBIN 36 pg (25-34); MEAN CORPUSCULAR HGB CONC 35 g/dL (32-36); MEAN CORPUSCULAR VOLUME 102 fL (80-99); MEAN PLATELET VOLUME 10.6 fL (9.0-12.2); MONOCYTES # (AUTO) 0.6 10^3/uL (0.0-1.0); MONOCYTES % (AUTO) 3 % (0-12); NEUTROPHILS # (AUTO) 17.9 10^3/uL (1.8-7.8); NEUTROPHILS % (AUTO) 89 % (42-75); PLATELET COUNT 505 10^3/uL (130-400); WHITE BLOOD COUNT 20.1 10^3/uL (4.3-11.0)
[2023-01-05 04:32] LABS: ALBUMIN 2.6 GM/DL (3.2-4.5)
[2023-01-05 04:33] LABS: POTASSIUM 3.5 MMOL/L (3.6-5.0)
[2023-01-05 04:34] LABS: CALCIUM 8.4 MG/DL (8.5-10.1)
[2023-01-05 04:35] LABS: TOTAL PROTEIN 6.1 GM/DL (6.4-8.2)
[2023-01-05 04:37] LABS: BILIRUBIN,TOTAL 1.1 MG/DL (0.1-1.0)
[2023-01-05 04:39] LABS: CREATININE SERUM 0.44 MG/DL (0.60-1.30)
[2023-01-05 04:40] LABS: BILIRUBIN,DIRECT 0.7 MG/DL (0.0-0.3); BILIRUBIN,INDIRECT 0.4 MG/DL
[2023-01-05 05:08] LABS: LYMPHOCYTES % (MANUAL) 7 %; MONOCYTES % (MANUAL) 3 %; NEUTROPHILS % (MANUAL) 90 %; PLATELET ESTIMATE INCREASED
[2023-01-05 05:09] LABS: POLYCHROMASIA SLIGHT; STOMATOCYTES MODERATE
[2023-01-05] MEDS: KCL 20 MEQ TAB (K-DUR) PO SCH (05:23)
[2023-01-05] MEDS: inSUlin ASPART (NovoLOG) 1 UNIT/0.01 ML (CHARGE PER UNIT) SQ SCH ×5 (05:23→23:50)
[2023-01-05] MEDS: POTASSIUM CL 10MEQ/50ML IVPB 50 ML IV SCH ×4 (05:23→06:39)
[2023-01-05] MEDS: POTASSIUM BICARB 20 MEQ (EFFER-K) TABLET PO SCH (05:31)
[2023-01-05] MEDS ORDERED: NS (IVPB) 50 ML ONE (05:33)
[2023-01-05] MEDS: ceFAZolin INJECTION 2,000 MG in NS (IVPB) 50 ML IV SCH ×3 (05:36→21:11)
[2023-01-05] MEDS: LORazepam INJ 2 MG/ML (ATIVAN) VIAL IV PRN ×2 (05:53→07:31)
[2023-01-05] MEDS: MAGNESIUM 1 GM/100 ML IVPB 100 ML IV SCH ×4 (06:02→07:32)
[2023-01-05] MEDS ORDERED: MAGNESIUM 1 GM/100 ML IVPB 400 ML IV ONE (06:04)
[2023-01-05 07:11] VITALS: BP 135/102
[2023-01-05] MEDS: RT-ALBUTEROL/IPRATROPIUM 3 ML (DUONEB) VIAL INH PRN (07:24)
--- NOTE | 2023-01-05 07:46 | Tele-ICU Progress Note ---
Subjective Date Seen by a Provider: Jan 05, 2023 Time Seen by a Provider: 11:58 Subjective/Events-last exam (Tele-ICU Physician , Progress Note ) Service provided via interactive audio and video telecommunications E-CARE system to a patient admitted to ICU bed in [facility]. Patient is seen today due to persistent need of ICU care Available chart/ vitals / labs / Images reviewed Video assessment done using teleICU camera, rest of exam as per RN Discussed with RN Events overnight : gastric output high on LIS , sedation cut down - diaphoretic , back to versed 10, precedex1.5 , fentanyl 350 , 16 450 +5 55 % febrile hemodynamically stable Respiratory - 35% I/O =POS Drips: Pressors- no VENT SETTINGS and ABG reviewed CANDIDATE for SBTreviewed possible contraindications including Cardiovascular Stability /Sedation Score / FI02/PEEP / ABG / CXR/ secretions Sedation, discussed with RN, RASS - 2 versed 8 , precedex1.5 , fentanyl OFF Hospital course: 12/23- 42 y/o F with no significant PMHx who presented to ED with c/o heavy alcohol use concerned about possible seizure at home. In ER noted to have progressively worsening agitation and was combative. INTUVBATED 12/24- PRVC 400/120/435/5, on versed 8 , precedex1.5 , fentanyl 200 , no Sz,phenobarb for 2 days 12/24-12/25- PRVC 16 450 +5 35 % on versed 810, precedex1.5 , fentanyl 300 , no Sz 12/26 - Vomited around NG - TF stopped 12/27- gastric output high on LIS , sedation cut down - diaphoretic , back to versed 10, precedex1.5 , fentanyl 350 , 16 450 +5 55 % 12/29-12/27- g sedation cut down - tachycardic , back to versed 10, precedex1.5 , fentanyl 350 , 16 450 +5 55 % 12/31- RASS - 2 versed 8 , precedex1.5 , desats - Fio2 35% -->60%, LASIX x1 , phenobarb and clonidin added , KUB for very distendent abd 12/31 - persistent tachycardia , elv dddimer - CTA - NEG for PE 01/01- 16 450 +5 40 % , versed 8 , precedex1.5 01/02 - Hb to 6.8 on 01/02 - TRANSFUSION 1 u PRBC - no obvious bleeding , 01/02- SBT rr 25 600 1 h with good ABG , copious secretions , weak - cont vent support 01/03-01/03- TODAY STILL ON SEDATION BUT AROUSABLE. BEING TRIED ON SBT ,SO FAR DOING OK BUT NO PLAN TO EXTUBATE SHE IS ON HEAVY SEDATION which is being weaned down. ps5/35/5/peep5 01/05- SHE WAS EXTUBATED on 01/04. o2 sats ok but had an episode of anxiety and tachycardia. precedex increased and started on po valuim and gabapentin. A/P Acute respiratory failure 2/2 AMS requiring airway protection, now with PNA ( CTA - NEG for PE 12/31 -Intubated 12/23 PRVC 16 450 +5 35% - secretions COPIOUS today but will try SBT since she is AAO and only 30% fio2 -sputum from ETT - usual floura 12/23 01/04- SBT planned for today qisb hopes to extubate 01/05- Extubated on 01/04. now on RA. but she developped super anxiety reaction requiring to increase precedex to 1.1.mcg and ativan 1 mg ivp. pt still anxious. FEVER 12/24- intermittent since then - cx blood neg -sputum from ETT - usual floura 12/23 - sputum 12/31 - STAPH in ETT - pending RLL suspected after aspiration -12/26 - Vomited around NG - TF stopped - zosyn started 12/27-01/01 FINISHED - will check blood cx from line and periph with next fever Tachycardia 12/31 - sinus , trop wnl 12/31 - started on cardizem po and p[rn beta blockers -CTA neg for PE - try pain control 01/05 partly due to withdrawal of etoh. will start po valium 5 mg tid and lorri apentin to decrease craving for alcohol. also advised to wean off precedex as fast as possible once valium started. Distendend abdomen- IMPROVING after BM -12/26 - Vomited around NG - TF stopped, high NG output on LIS - resumed TF - will check KUB again , as per RN abd distented but not tender , no BM since adnmission - KUB done 12/31 , strarted on lactulose 12/31 -gastric output high on LIS - RESOLVED - Alcohol withdrawal: -Intubated for severe agitation -versed 8-10, precedex1.5 , fentanyl 300 , Off propofol given elevated TG 166 on admission. prn Ativan - thiamine , folate - phenobarb and clonidine added 12/31 01/05 added valium po and gabapentin possible seizure - suspected due to ETOH withdrawal - benzo prn , no AED Hypokalemia: / hypophos -replacing Transaminitis- improving - US RUQ: Hepatomegaly with diffuse steatosis.No sonographic features of cirrhosis --ammonia and coags WNL - to recheck Anemia- slow trend down - driop Hb to 6.8 on 01/02 - TRANSFUSION 1 u PRBC - no obvious bleeding -monitor stable - Iton /tibs ordered 01/01 - pending Thrombocytopenia - presumed due to ETON , RESOLVED , Meena resumed Lines : PICC 12/24 LEFT , (Central Line Necessity Reviewed) Antony: + Nutrition: TF VTE Prophylaxis: meena 40 Stress Ulcer Prophylaxis: pepsid Plans in collaboration with bedside consultants and IM MDs. Discussed with RN to reach out if any questions or concerns Case and care daily discussed on multidisciplinary rounds ( RN, PharmD, Nutr itionist , Respiratory Therapy, derrick worker ) A total of 20 minutes of critical care time was devoted to this patient today, required to treat and/or prevent further deterioration of critical care condition ( as above ) I am remotely monitoring this patient from another state. I am unable to do the bedside exam, and history/physical and pertinent information is taken from other notes in the computer and bedside staff. Sepsis Event Evaluation Height, Weight, BMI Height: '" Weight: lbs. oz. kg; 24.67 BMI Method: Exam Exam Patient acknowledged, consented, and participated in this virtual visit which was conducted using real time audio/video Vital Signs Date Time Temp Pulse Resp B/P (MAP) Pulse Ox O2 Delivery O2 Flow Rate FiO2 01/05/23 07:41 24 01/05/23 07:35 High Flow N/C 1.00 01/05/23 07:25 97 Nasal Cannula 1.00 01/05/23 07:11 37.1 92 96 01/05/23 06:00 92 135/102 (112) 96 Room Air 01/05/23 05:00 104 126/97 (107) 95 Room Air 01/05/23 04:00 84 133/103 (113) Room Air 01/05/23 04:00 96 Room Air 01/05/23 04:00 37.1 01/05/23 03:15 85 132/93 (107) 92 Room Air 01/05/23 03:00 96 126/107 (113) 94 Room Air 01/05/23 02:00 99 138/95 (108) 95 Room Air 01/05/23 01:30 99 139/88 (96) 94 Room Air 01/05/23 01:02 95 01/05/23 01:00 78 130/103 (112) 95 Room Air 01/05/23 00:00 36.9 01/05/23 00:00 79 146/94 (116) 95 Room Air 01/04/23 23:59 94 Room Air 01/04/23 23:00 79 113/88 (97) Room Air 01/04/23 22:30 120 141/105 (117) 97 Room Air 01/04/23 22:15 97 Room Air 01/04/23 22:00 80 37 127/100 (111) 93 Room Air 01/04/23 21:30 76 139/95 (115) 94 Room Air 01/04/23 21:00 109 142/105 (124) 90 Room Air 01/04/23 20:30 88 28 150/98 (107) 93 Room Air 01/04/23 20:17 94 Room Air 01/04/23 20:04 36.5 01/04/23 20:00 82 141/112 (121) 93 Room Air 01/04/23 19:30 90 129/86 (100) 94 Room Air 01/04/23 19:22 90 129/86 01/04/23 19:01 100 01/04/23 19:00 92 114/87 (93) 93 Room Air 01/04/23 18:51 91 Room Air 01/04/23 18:00 71 18 133/82 (99) 92 Room Air 01/04/23 17:31 73 123/82 01/04/23 17:03 Room Air 01/04/23 17:00 73 18 123/82 (96) 91 High Flow N/C 1.00 01/04/23 16:36 36.3 01/04/23 16:00 96 High Flow N/C 1.00 01/04/23 16:00 70 15 129/96 (107) 97 High Flow N/C 1.00 01/04/23 15:22 36.3 01/04/23 15:00 67 30 137/94 (108) 94 High Flow N/C 1.00 01/04/23 14:43 94 Nasal Cannula 1.00 01/04/23 14:03 High Flow N/C 1.00 01/04/23 14:00 84 17 126/91 (103) 95 High Flow N/C 3.00 01/04/23 13:09 96 01/04/23 13:00 87 24 131/72 (91) 99 High Flow N/C 3.00 01/04/23 12:40 96 High Flow N/C 3.00 01/04/23 12:00 84 24 143/107 (119) 97 High Flow N/C 3.00 01/04/23 11:35 37.5 01/04/23 11:08 High Flow N/C 3.00 01/04/23 11:05 98 Nasal Cannula 3.00 01/04/23 11:00 105 144/113 (123) 100 Mechanical Ventilator 30.00 01/04/23 10:49 101 24 99 30 01/04/23 10:00 79 140/101 (114) 96 Mechanical Ventilator 30.00 01/04/23 09:00 108 117/105 (109) 96 Mechanical Ventilator 30.00 01/04/23 08:51 100 24 96 30 01/04/23 08:41 95 131/94 01/04/23 08:40 88 23 131/94 01/04/23 08:00 35 01/04/23 08:00 98 35 01/04/23 08:00 81 119/84 (96) 97 Mechanical Ventilator 30.00 01/04/23 07:55 36.5 I & O 01/05/23 07:00 Intake Total 1281.2 ml Output Total 5025 ml Balance -3743.8 ml Height & Weight Height: '" Weight: lbs. oz. kg; 24.67 BMI Method: General Appearance: No Apparent Distress, WD/WN, Chronically ill, Other (Awake and alert) HEENT: No PERRL/EOMI, No TMs Normal, No Normal ENT Inspection, No Pharynx Normal, No Moist Mucous Membranes, No Pale Conjunctivae (L), No Pale Conjunctivae (R), No Pharyngeal Erythema, No Photophobia, No Scleral Icterus (L), No Scleral Icterus (R), No TM Abnormal (L), No TM Abnormal (R), No Tonsillar Exudate, No Tonsillar Enlargement, No Other Neck: No Full Range of Motion, No Normal Inspection, No Non Tender, No Supple, No Carotid Bruit, No JVD, No Limited Range of Motion, No Lymphadenopathy (L), No Lymphadenopathy (R), No Tender Lateral, No Tender Midline, No Thyromegaly, No Other Respiratory: No Accessory Muscle Use, Decreased Breath Sounds Cardiovascular: Regular Rate, Rhythm Capillary Refill: Less Than 3 Seconds Peripheral Pulses: 2+ Dorsalis Pedis (R), 2+ Left Dors-Pedis (L) Gastrointestinal: normal bowel sounds, non tender, soft, other (abd is disten ded, got MOM) Extremity: Pedal Edema (trace ankle edema) Neurologic/Psychiatric: Other (sedated) Results Lab Laboratory Tests 01/04/23 04:33 01/05/23 04:04 Assessment/Plan Assessment/Plan as above Critical Care: Critically Ill Patient Time spent with patient (mins): 20 REINALDO HERNANDEZ MD Jan 05, 2023 07:46
[2023-01-05] MEDS: DexMEDEtomidine 250 ML DRIP 250 ML IV SCH (08:19)
[2023-01-05] MEDS: PHENobarbital 64.8 MG (1 GRAIN) TAb PO SCH ×2 (08:19→21:10)
[2023-01-05] MEDS: FAMOTIDINE 20MG/2ML IV (PEPCID) IVP SCH (08:20)
[2023-01-05] MEDS: fentaNYL INJ 100 MCG/2 ML AMP IVP PRN ×5 (08:46→23:43)
[2023-01-05] MEDS: GABAPENTIN 300 MG (NEURONTIN) CAP PO SCH ×2 (09:08→21:10)
[2023-01-05] MEDS: ENOXAPARIN 40 MG/0.4 ML (LOVENOX) SYR SC SCH (09:55)
--- NOTE | 2023-01-05 13:07 | ST Dysphagia Evaluation ---
Speech Evaluation-General Medical Diagnosis Hypokalemia Onset Date: Dec 23, 2022 Therapy Diagnosis Therapy Diagnosis: Impaired Oropharyngeal Swallow Precautions Precautions: Fall, Pressure Ulcer, Aspiration Precautions/Isolations: Aspiration, Fall Prevention, Standard Precautions, Pressure Ulcer Referral Referring Physician: Dr. Bass Reason for Referral: Evaluation/Treatment Medical History Current History CXR: 01/03/13: IMPRESSION: Improved aeration of the lungs with improved and essentially resolved left midlung opacities.Interval placement of additional enteric catheter versus probe with the distal tip overlying the lower aspect of the esophagus. Otherwise, lines and tubes are unchanged. The patient was intubated from 12/23/22 to 01/04/23. Reviewed History: Yes Speech PLF/Current-Dysphagia Prior Level of Function The clinician is unable to locate prior level of function information from a chart review. Per patient, she was able to consume all consistencies prior to admission without s/s of suspected aspiration. The patient reported she consumes consistencies with her edentulous state due to "my dog ate my bottom teeth and they're too expensive to buy again." Subjective The patient was lying in bed, eyes closed, upon entrance to her room by the clinician. The patient woke with a verbal greeting from the clinician however remained fatigue throughout the evaluation. The patient was agreeable to participation in the clinical bedside swallowing assessment and was seated upright for swallowing safety. The patient's RN stated she had provided medication and sips of thin liquid throughout the morning and the patient has not displayed s/s of suspected aspiration. Cognitive Status Patient Orientation: Person Oral Motor Skills Dentition: Edentalous Ability to Follow Directions: Fair Oral Expression Ability: Moderate Impairment Voice Voice Phonatory-Based Quality: Harsh, Glottal Taylor Voice Pitch: Normal Voice Loudness: Normal Face Facial Symmetry: Symmetrical Oral-Facial Assessment Oral-Facial Dentition: Normal Labial Seal Description: Weak Lingual Protrusion: Normal Volitional Dry Swallow: Yes Voluntary Cough: Yes Can Clear Throat Volitionally: Yes Productive Cough: Yes Productive Throat Clear: Yes Dysphagia Evaluation Consistencies Presented: Thin Liquid, Pureed The patient does not display premature spillage with teaspoon of straw drinks of thin liquid however does display a weak labial seal with limited oral bolus manipulation. Laryngeal elevation was present to palpation. A delayed pharyngeal swallow onset is suspected. The patient was provided ice chips, teaspoons of thin liquid, single straw drinks of thin liquid, multiple straw drinks of thin liquid, and puree. The patient did not display s/s of suspected aspiration with ice chips, teaspoons of thin liquid, single straw drinks of thin liquid, and puree. The patient did display a rigorous, immediate cough following large, consecutive straw drinks of thin liquid. The patient attempted to self-feed however was unable to support the cup due to upper extremity weakness. Dietary Recommendations: Pureed Liquid Recommendations: Thin Recommendations: - PU4 with thin liquids, as tolerated. - Fully upright and alert for P.O. intake. - 1:1 feeder and supervision throughout P.O. intake to ensure single, small drinks. - Small bites and sips. - Monitor for s/s of suspected aspiration with P.O. intake. If demonstrated, please contact speech pathology. - Speech pathology to follow the patient for diet tolerance and dysphagia needs. The results and recommendations were provided to the patient and the patient's RN immediately following completion. Speech Short Term Goals Short Term Goals Short Term Goals 1. The patient, staff, and family members will display safe swallowing precautions with 90% accuracy, independently. Time Frame-STG: Five Days. Speech Assisted Goals Marine Pipefitter Goals 1. The patient will tolerate the least restrictive diet consistency without s/s of suspected aspiration. Time Frame: One Week. Speech-Plan Treatment Plan Speech Therapy Treatment Plan: Continue Plan of Care Treatment Duration: Jan 14, 2023 Frequency: 3 times per week Estimated Hrs Per Day: .25 hour per day Rehab Potential: Guarded Pt/Family Agrees to Plan: Yes Safety Risks/Education Teaching Recipient: Patient Teaching Methods: Discussion Response to Teaching: Reinforcement Needed Education Topics Provided: Results, Recommendations, Safe Swallowing Precautions Time Speech Therapy Time In: 10:49 Speech Therapy Time Out: 11:07 DATE: Jan 05, 2023 Total Billed Time: 18 Billed Treatment Time 1, LEATHA SNELL [facility] Jan 05, 2023 13:07
[2023-01-05] MEDS: THIAMINE 100 MG IV SCH ×3 (13:30)
[2023-01-05] MEDS: NS IV SCH ×3 (13:30)
[2023-01-05] MEDS: FOLIC ACID IV SCH ×3 (13:30)
--- NOTE | 2023-01-05 13:47 | Progress Note ---
Subjective Subjective/Events-last exam Patient extubated yesterday. States that she has taken some liquid and did not have coughing. She is still pretty tired and worn out Review of Systems General: Fatigue, Malaise Pulmonary: No Dyspnea; Cough Cardiovascular: No: Chest Pain, Palpitations, Edema Neurological: Weakness, Incoordination Objective Exam Last Set of Vital Signs Vital Signs Date Time Temp Pulse Resp B/P (MAP) Pulse Ox O2 Delivery O2 Flow Rate FiO2 01/05/23 12:16 83 01/05/23 11:47 36.9 01/05/23 10:30 35 130/104 (113) 95 High Flow N/C 1.00 01/04/23 10:49 30 Capillary Refill : Less Than 3 Seconds I&O Intake and Output 01/05/23 00:00 Intake Total 2301.2 ml Output Total 4675 ml Balance -2373.8 ml Intake Oral 0 ml IV Total 1011.2 ml Tube Feeding 400 ml Other 890 ml Output Urine Total 4675 ml # Bowel Movements 3 General: Alert, Oriented X3, No Acute Distress Lungs: Other (basilar crackles, normal work of breathing) Abdomen: Soft Extremities: Other (trace swelling) Neuro: Normal Speech Results/Procedures Lab Laboratory Tests 01/04/23 17:12: Glucometer 107 01/05/23 01:26: Glucometer 125H 01/05/23 04:04: White Blood Count 20.1H, Red Blood Count 2.63L, Hemoglobin 9.4L, Hematocrit 27L, Mean Corpuscular Volume 102H, Mean Corpuscular Hemoglobin 36H, Mean Corpuscular Hemoglobin Concent 35, Red Cell Distribution Width 14.9H, Platelet Count 505H, Mean Platelet Volume 10.6, Immature Granulocyte % (Auto) 3, Neutrophils (%) (Auto) 89H, Lymphocytes (%) (Auto) 5L, Monocytes (%) (Auto) 3, Eosinophils (%) (Auto) 0, Basophils (%) (Auto) 0, Neutrophils # (Auto) 17.9H, Lymphocytes # (Auto) 1.0, Monocytes # (Auto) 0.6, Eosinophils # (Auto) 0.0, Basophils # (Auto) 0.1, Immature Granulocyte # (Auto) 0.6H, Neutrophils % (Manual) 90, Lymphocytes % (Manual) 7, Monocytes % (Manual) 3, Platelet Estimate INCREASED, Polychromasia SLIGHT, Macrocytosis SLIGHT, Stomatocytes MODERATE, Sodium Level 133L, Potassium Level 3.5L, Chloride Level 101, Carbon Dioxide Level 18L, Anion Gap 14, Blood Urea Nitrogen 6L, Creatinine 0.44L, Estimat Glomerular Filtration Rate 125, BUN/Creatinine Ratio 14, Glucose Level 111H, Calcium Level 8.4L, Magnesium Level 1.6, Total Bilirubin 1.1H, Direct Bilirubin 0.7H, Indirect Bilirubin 0.4, Aspartate Amino Transf (AST/SGOT) 73H, Alanine Aminotransferase (ALT/SGPT) 53, Alkaline Phosphatase 179H, Total Protein 6.1L, Albumin 2.6L 01/05/23 11:15: Glucometer 117H Microbiology 12/30/22 Gram Stain - Final, Complete 12/30/22 Sputum Culture - Final, Complete Staphylococcus aureus 12/24/22 Blood Culture - Final, Complete No growth Radiology CT head 12/23/22: IMPRESSION: No acute intracranial abnormality is detected although there is mild bilateral maxillary sinus and extensive right sphenoid sinus disease. CXR 12/23/22: IMPRESSION: No evidence of acute abnormality or complication post intubation. Assessment/Plan Assessment/Plan (1) Fever Status: Acute Assessment & Plan: 01/03 Febrile this morning, zosyn ended on 01/02 am, will start cefazolin due to MSSA in sputum. (2) Delirium tremens Status: Acute Assessment & Plan: CT head without acute findings. Intubated, sedated on dexmedetomidine, fentanyl and midazolam, alcohol withdrawal protocol with CIWA and IV lorazepam, daily banana bag on admit. 01/03- has had persistent need for high sedation and ventilation, currently doing SBT and doing well, appreciate Doris ICU recommendations. 01/04 extubated, remains on some Precedex and fentanyl, weaning slowly due to marked agitation previously. 01/05: Weaning off precedex, speech to come and evaluate patient prior to eating (3) Elevated liver enzymes Status: Chronic Assessment & Plan: Chart review shows LFTs minimally elevated (AST/ALT in the 40s) 10/2021, so significantly above previous baseline. Consider acute alcoholic hepatitis. Check PT/INR, PTT and hepatitis panel as well as liver ultrasound with doppler to eval for other causes. 12/24 trending down. Liver US without mass or cirrhosis. Hepatitis panel positive only for Hep C antibody. (4) Alcohol withdrawal delirium Status: Acute (5) Hypokalemia Status: Resolved Assessment & Plan: Marked on admit, replacing with 60 mEq initially, recheck after and if near normal, will use protocol replacement. 12/24 improved to 3.3, continue replacing. (6) Hypomagnesemia Status: Resolved Assessment & Plan: Replaced (7) Hypophosphatemia Status: Acute Assessment & Plan: Replace and recheck. (8) Thrombocytopenia Status: Resolved Assessment & Plan: Last check at clinic 10/2021 CBC was normal. Suspect due to alcohol use/liver failure. Trending down early in admit, now has thrombocytosis (9) Leukopenia Status: Resolved Assessment & Plan: Previously normal a year ago. Suspect due to liver disease, normal 12/24 (10) Alcohol use disorder Status: Chronic (11) Opioid use disorder Status: Chronic Assessment & Plan: Per clinic chart, on Suboxone prescribed by Dr. Godoy, however, unable to confirm if still taking, was last seen at [facility] October 2021. (12) Hypertension Status: Chronic Assessment & Plan: Borderline hypotensive after intubation, hold home medications, monitor. (13) Bipolar disorder Status: Chronic (14) History of hepatitis C Status: Chronic Assessment & Plan: Per clinic records, treated in 2014 with good response, negative viral PCR in 2018. Check acute hepatitis panel given acute hepatitis, but Hep C antibody anticipated to be positive, if remainder of acute testing negative, check Hep C PCR if liver enzymes persistently markedly elevated. (15) DVT prophylaxis Status: Acute Assessment & Plan: Enoxaparin JAKE DUGAN MD Jan 05, 2023 13:47
[2023-01-05] MEDS: ACETAMINOPHEN 500 MG TAB (TYLENOL) PO PRN (22:07)
[2023-01-06] MEDS ORDERED: BISMUTH SUBSALICYLATE PO PRN (04:00)
[2023-01-06] MEDS ORDERED: ANTACID SUSP 30 ML UDC (MYLANTA) PO PRN (04:15)
[2023-01-06] MEDS: fentaNYL INJ 100 MCG/2 ML AMP IVP PRN ×4 (04:40→21:55)
[2023-01-06] MEDS: LORazepam INJ 2 MG/ML (ATIVAN) VIAL IV PRN ×2 (04:40→08:18)
[2023-01-06 04:54] LABS: BASOPHILS # (AUTO) 0.1 10^3/uL (0.0-0.1); BASOPHILS % (AUTO) 0 % (0-10); EOSINOPHILS % (AUTO) 0 % (0-10); HEMATOCRIT 26 % (35-52); HEMOGLOBIN 9.2 g/dL (11.5-16.0); LYMPHOCYTES # (AUTO) 0.9 10^3/uL (1.0-4.0); LYMPHOCYTES % (AUTO) 5 % (12-44); MEAN CORPUSCULAR HEMOGLOBIN 36 pg (25-34); MEAN CORPUSCULAR HGB CONC 35 g/dL (32-36); MEAN CORPUSCULAR VOLUME 102 fL (80-99); MEAN PLATELET VOLUME 10.3 fL (9.0-12.2); MONOCYTES # (AUTO) 0.7 10^3/uL (0.0-1.0); MONOCYTES % (AUTO) 3 % (0-12); NEUTROPHILS # (AUTO) 17.9 10^3/uL (1.8-7.8); NEUTROPHILS % (AUTO) 90 % (42-75); PLATELET COUNT 535 10^3/uL (130-400); WHITE BLOOD COUNT 19.8 10^3/uL (4.3-11.0)
[2023-01-06 05:13] LABS: POTASSIUM 2.9 MMOL/L (3.6-5.0)
[2023-01-06 05:14] LABS: CALCIUM 7.8 MG/DL (8.5-10.1)
[2023-01-06 05:18] LABS: CREATININE SERUM 0.44 MG/DL (0.60-1.30)
[2023-01-06] MEDS: POTASSIUM CL 10MEQ/50ML IVPB 50 ML IV SCH ×8 (06:08→13:36)
[2023-01-06] MEDS: inSUlin ASPART (NovoLOG) 1 UNIT/0.01 ML (CHARGE PER UNIT) SQ SCH ×3 (06:08→18:00)
[2023-01-06] MEDS: MAGNESIUM 1 GM/100 ML IVPB 100 ML IV SCH ×5 (06:09→10:25)
[2023-01-06] MEDS: POTASSIUM BICARB 20 MEQ (EFFER-K) TABLET PO SCH (06:09)
[2023-01-06] MEDS: DexMEDEtomidine 250 ML DRIP 250 ML IV SCH (06:11)
[2023-01-06] MEDS: ceFAZolin INJECTION 2,000 MG in NS (IVPB) 50 ML IV SCH ×3 (06:18→21:55)
[2023-01-06] MEDS: KCL 20 MEQ TAB (K-DUR) PO SCH (06:40)
[2023-01-06] MEDS: PHENobarbital 64.8 MG (1 GRAIN) TAb PO SCH ×2 (08:18→21:55)
[2023-01-06] MEDS: FAMOTIDINE 20MG/2ML IV (PEPCID) IVP SCH (08:18)
[2023-01-06] MEDS: GABAPENTIN 300 MG (NEURONTIN) CAP PO SCH ×2 (08:19→21:55)
[2023-01-06] MEDS: ENOXAPARIN 40 MG/0.4 ML (LOVENOX) SYR SC SCH (10:24)
--- NOTE | 2023-01-06 10:30 | Tele-ICU Progress Note ---
Subjective Date Seen by a Provider: Jan 06, 2023 Time Seen by a Provider: 10:28 Subjective/Events-last exam (Tele-ICU Physician , Progress Note ) Service provided via interactive audio and video telecommunications E-CARE system to a patient admitted to ICU bed in [facility]. Patient is seen today due to persistent need of ICU care Available chart/ vitals / labs / Images reviewed Video assessment done using teleICU camera, rest of exam as per RN Discussed with RN Events overnight : gastric output high on LIS , sedation cut down - diaphoretic , back to versed 10, precedex1.5 , fentanyl 350 , 16 450 +5 55 % febrile hemodynamically stable Respiratory - 3 L I/O =POS Drips: Pressors- no Hospital course: 12/23- 42 y/o F with no significant PMHx who presented to ED with c/o heavy alcohol use concerned about possible seizure at home. In ER noted to have progressively worsening agitation and was combative. INTUVBATED 12/24- PRVC 400/120/435/5, on versed 8 , precedex1.5 , fentanyl 200 , no Sz,phenobarb for 2 days 12/24-12/25- PRVC 16 450 +5 35 % on versed 810, precedex1.5 , fentanyl 300 , no Sz 12/26 - Vomited around NG - TF stopped 12/27- gastric output high on LIS , sedation cut down - diaphoretic , back to versed 10, precedex1.5 , fentanyl 350 , 16 450 +5 55 % 12/29-12/27- g sedation cut down - tachycardic , back to versed 10, precedex1.5 , fentanyl 350 , 16 450 +5 55 % 12/31- RASS - 2 versed 8 , precedex1.5 , desats - Fio2 35% -->60%, LASIX x1 , phenobarb and clonidin added , KUB for very distendent abd 12/31 - persistent tachycardia , elv dddimer - CTA - NEG for PE 01/01- 16 450 +5 40 % , versed 8 , precedex1.5 01/02 - Hb to 6.8 on 01/02 - TRANSFUSION 1 u PRBC - no obvious bleeding , 01/02- SBT rr 25 600 1 h with good ABG , copious secretions , weak - cont vent support 01/03-01/03- TODAY STILL ON SEDATION BUT AROUSABLE. BEING TRIED ON SBT ,SO FAR DOING OK BUT NO PLAN TO EXTUBATE SHE IS ON HEAVY SEDATION which is being weaned down. ps5/35/5/peep5 01/04 EXTUBATED 01/06 - on 3 L nc , low appetite , on precedex 0.4 , started valium PO , g abapentin ( in additon to phenobarb and ativan A/P Acute respiratory failure 2/2 AMS requiring airway protection, now with PNA ( CTA - NEG for PE 12/31 -Intubated 12/23 01/04- extubated - in 3 L , start ISS FEVER 12/24- intermittent since then - cx blood neg -sputum from ETT - usual floura 12/23 - sputum 12/31 - STAPH in ETT - pending RLL suspected after aspiration -12/26 - Vomited around NG - TF stopped - zosyn started 12/27-01/01 FINISHED Tachycardia 12/31 - sinus , trop wnl 12/31 - started on cardizem po and p[rn beta blockers -CTA neg for PE - try pain control Distendend abdomen- IMPROVING after BM -12/26 - Vomited around NG - TF stopped, high NG output on LIS - resumed TF - will check KUB again , as per RN abd distented but not tender , no BM since adnmission - KUB done 12/31 , strarted on lactulose 12/31 -gastric output high on LIS - RESOLVED - on TF bow Alcohol withdrawal: -Intubated for severe agitation -versed 8-10, precedex1.5 , fentanyl 300 , Off propofol given elevated TG 166 on admission. prn Ativan - thiamine , folate - phenobarb and clonidine added 12/31 possible seizure - suspected due to ETOH withdrawal - benzo prn , no AED Hypokalemia: / hypophos -replacing Transaminitis- improving - US RUQ: Hepatomegaly with diffuse steatosis.No sonographic features of cirrhosis --ammonia and coags WNL - to recheck Anemia- slow trend down - driop Hb to 6.8 on 01/02 - TRANSFUSION 1 u PRBC - no obvious bleeding -monitor stable - Iton /tibs ordered 01/01 - pending Thrombocytopenia - presumed due to ETON , RESOLVED , Meena resumed Lines : PICC 12/24 LEFT , (Central Line Necessity Reviewed) Antony: + Nutrition: po VTE Prophylaxis: meena 40 Stress Ulcer Prophylaxis: pepsid Plans in collaboration with bedside consultants and IM MDs. Discussed with RN to reach out if any questions or concerns Case and care daily discussed on multidisciplinary rounds ( RN, PharmD, Petrologist , Respiratory Therapy, vamp cut out worker ) A total of 20 minutes of critical care time was devoted to this patient today, required to treat and/or prevent further deterioration of critical care condition ( as above ) I am remotely monitoring this patient from another state. I am unable to do the bedside exam, and history/physical and pertinent information is taken from other notes in the computer and bedside staff. Sepsis Event Evaluation Height, Weight, BMI Height: '" Weight: lbs. oz. kg; 24.64 BMI Method: Exam Exam Patient acknowledged, consented, and participated in this virtual visit which was conducted using real time audio/video Vital Signs Date Time Temp Pulse Resp B/P (MAP) Pulse Ox O2 Delivery O2 Flow Rate FiO2 01/06/23 09:00 112 22 133/102 (112) 89 High Flow N/C 3.00 01/06/23 08:00 99 23 140/99 (113) 96 High Flow N/C 3.00 01/06/23 07:55 37.0 01/06/23 07:52 98 High Flow N/C 3.00 01/06/23 07:00 118 29 144/115 (125) 84 High Flow N/C 3.00 01/06/23 07:00 106 01/06/23 06:11 105 140/106 01/06/23 06:05 93 143/95 (111) 01/06/23 06:00 92 26 148/106 (120) 95 High Flow N/C 3.00 01/06/23 05:00 95 21 147/108 (121) 96 High Flow N/C 3.00 01/06/23 04:00 94 High Flow N/C 3.00 01/06/23 04:00 96 21 138/97 (111) 95 High Flow N/C 3.00 01/06/23 03:00 94 27 136/100 (112) 92 High Flow N/C 3.00 01/06/23 02:00 93 29 143/95 (111) 93 High Flow N/C 3.00 01/06/23 01:00 87 01/06/23 00:00 87 20 134/99 (111) 94 High Flow N/C 3.00 01/05/23 23:59 94 High Flow N/C 3.00 01/05/23 23:00 94 12 128/98 (108) 94 High Flow N/C 3.00 01/05/23 22:00 92 22 143/101 (115) 96 High Flow N/C 3.00 01/05/23 21:00 90 13 131/94 (106) 92 High Flow N/C 3.00 01/05/23 20:00 130 24 130/93 (105) 95 High Flow N/C 3.00 01/05/23 20:00 92 High Flow N/C 3.00 01/05/23 19:00 86 15 125/87 (100) 94 High Flow N/C 3.00 01/05/23 19:00 82 01/05/23 18:00 75 27 103/74 (84) 96 High Flow N/C 3.00 01/05/23 17:00 82 31 112/77 (89) 99 High Flow N/C 3.00 01/05/23 16:00 73 27 120/86 (97) 95 High Flow N/C 3.00 01/05/23 16:00 98 High Flow N/C 3.00 01/05/23 15:58 36.3 01/05/23 15:35 High Flow N/C 3.00 01/05/23 15:00 87 21 126/89 (101) 91 High Flow N/C 1.00 01/05/23 14:00 93 16 129/89 (102) 93 High Flow N/C 1.00 01/05/23 13:00 82 32 125/84 (98) 90 High Flow N/C 1.00 01/05/23 12:16 83 01/05/23 12:00 96 High Flow N/C 1.00 01/05/23 12:00 85 26 128/90 (103) 91 High Flow N/C 1.00 01/05/23 11:47 36.9 01/05/23 11:30 98 29 121/98 (106) 94 High Flow N/C 1.00 01/05/23 10:30 96 35 130/104 (113) 95 High Flow N/C 1.00 I & O 01/06/23 07:00 Intake Total 2101.2 ml Output Total 3625 ml Balance -1523.8 ml Height & Weight Height: '" Weight: lbs. oz. kg; 24.64 BMI Method: General Appearance: No Apparent Distress, WD/WN, Chronically ill, Other (Awake and alert) HEENT: No PERRL/EOMI, No TMs Normal, No Normal ENT Inspection, No Pharynx Normal, No Moist Mucous Membranes, No Pale Conjunctivae (L), No Pale Conjunctivae (R), No Pharyngeal Erythema, No Photophobia, No Scleral Icterus (L), No Scleral Icterus (R), No TM Abnormal (L), No TM Abnormal (R), No Tonsillar Exudate, No Tonsillar Enlargement, No Other Neck: No Full Range of Motion, No Normal Inspection, No Non Tender, No Supple, No Carotid Bruit, No JVD, No Limited Range of Motion, No Lymphadenopathy (L), No Lymphadenopathy (R), No Tender Lateral, No Tender Midline, No Thyromegaly, No Other Respiratory: No Accessory Muscle Use, Decreased Breath Sounds Cardiovascular: Regular Rate, Rhythm Capillary Refill: Less Than 3 Seconds Peripheral Pulses: 2+ Dorsalis Pedis (R), 2+ Left Dors-Pedis (L) Gastrointestinal: normal bowel sounds, non tender, soft, other (abd is distended, got MOM) Extremity: Pedal Edema (trace ankle edema) Neurologic/Psychiatric: Other (sedated) Results Lab Laboratory Tests 01/05/23 04:04 01/06/23 04:30 Assessment/Plan Assessment/Plan 1 SHELLY CLEMENT MD Jan 06, 2023 10:30
--- NOTE | 2023-01-06 12:17 | Speech Therapy Daily Note ---
Speech Daily Progress Note Subjective Date Seen by Provider: Jan 06, 2023 Time Seen by Provider: 11:45 The patient was lying in bed, awake and alert, upon entrance to her room by the clinician. The patient greeted the clinician appropriately and was agreeable to participation in the skilled dysphagia therapy session. Per RN, the patient has consumed medications with thin liquids without s/s of suspected aspiration. The patient remains impulsive, requiring verbal cueing from the RN to consume single drinks. When large, consecutive drinks are consumed, the patient does display s/s of suspected aspiration. Objective The patient was agreeable to teaspoons and straw drinks of Sprite and teaspoons of applesauce. The patient politely deferred solid consistencies. Per patient, "I never ate when I drank and now I"m just not hungry." The patient did not display any s/s of suspected aspiration with the provided P.O. trials and the patient's vocal quality remained clear following each item. The clinician provided education regarding the importance of single, small sips to reduce aspiration risks with thin liquids. The patient verbalized comprehension however the clinician recommends continued supervision for patient safety. Continue the current plan of care. Assessment Assessment Current Status: Fair Progress Treatment Plan Continue Plan of Care Speech Short Term Goals Short Term Goals Short Term Goals 1. The patient, staff, and family members will display safe swallowing precautions with 90% accuracy, independently. Time Frame-STG: Five Days. Speech Char Conveyor Tender Goals Char Conveyor Tender Goals 1. The patient will tolerate the least restrictive diet consistency without s/s of suspected aspiration. Time Frame: One Week. Speech-Plan Treatment Plan Speech Therapy Treatment Plan: Continue Plan of Care Treatment Duration: Jan 14, 2023 Frequency: 3 times per week Estimated Hrs Per Day: .25 hour per day Rehab Potential: Guarded Pt/Family Agrees to Plan: Yes Safety Risks/Education Teaching Recipient: Patient Teaching Methods: Discussion Response to Teaching: Reinforcement Needed Education Topics Provided: Safe Swallowing Precautions, Swallowing Recommendations Time Speech Therapy Time In: 11:45 Speech Therapy Time Out: 12:00 DATE: Jan 06, 2023 Total Billed Time: 15 Billed Treatment Time 1LEATHA GABRIELA DWYER Jan 06, 2023 12:17
[2023-01-06] MEDS: ACETAMINOPHEN 500 MG TAB (TYLENOL) PO PRN (13:39)
--- NOTE | 2023-01-06 14:18 | Physical Therapy Evaluation ---
PT Evaluation-General Medical Diagnosis Admission Date Dec 23, 2022 at 09:00 Medical Diagnosis: Hypokalemia Onset Date: Dec 23, 2022 Therapy Diagnosis Therapy Diagnosis: generalized weakness/debility Precautions Precautions/Isolations: Standard Precautions Referral Physician: Danica Reason for Referral: Evaluation/Treatment Medical History Pertinent Medical History: Alcoholism, Smoking Current History EMS secondary to seizures x 2/admit to detox (intubated x 2 weeks) Reviewed History: Yes Social History Home: Single Level Current Living Status: Children Prior Prior Level of Function SCALE: Activities may be completed with or without assistive devices. 6-Axdzkeoshx-ybudexc completes the activity by him/herself with no assistance from a helper. 5-Set-up or Clean-up Assistance-helper sets up or cleans up; patient completes activity. [place] assists only prior to or following the activity. 4-Supervision or Touching Assistance-helper provides verbal cues and/or touching/steadying and/or contact guard assistance as patient completes activity. Assistance may be provided throughout the activity or intermittently. 3-Partial/Moderate Assistance-helper does LESS THAN HALF the effort. [place] lifts, holds or supports trunk or limbs, but provides less than half the effort. 2-Substantial/Maximal Assistance-helper does MORE THAN HALF the effort. [place] lifts or holds trunk or limbs and provides more than half the effort. 9-Krmklxjaj-ulybjk does ALL the effort. Patient does none of the effort to complete the activity. Or, the assistance of 2 or more helpers is required for the patient to complete the activity. If activity was not attempted, code reason: 7-Patient Refused. 9-Not Applicable-not attempted and the patient did not perform the activity before the current illness, exacerbation or injury. 10-Not Attempted due to Environmental Limitations-(lack of equipment, weather restraints, etc.). 88-Not Attempted due to Medical Conditions or Safety Concerns. Bed Mobility: 6 Transfers (B,C,W/C): 6 Gait: 6 Stairs: 6 Indoor Mobility (Ambulation): Independent Stairs: Independent Prior Devices Use: None PT Evaluation-Current Subjective Patient agrees to therapy. Objective Patient Orientation: Normal For Age Attachments: Oxygen, Antony Catheter, IV ROM/Strength ROM Lower Extremities bilateral LE WFL Strength Lower Extremities 3-/5 grossly bilateral LE all planes Integumentary/Posture Bowel Incontinence: Yes Bladder Incontinence: Antony Cath Posture WFL Neuromuscular (Tone, Coordination, Reflexes) diminished coordination due to weakness Sensory Vision: Wears Glasses Hearing: Functional Transfers Lying to Sitting/Side of Bed(Q: 3 Sit to Stand (QC): 3 Chair/Ixw-lt-Kvpbp Xfer(QC): 3 Gait Mode of Locomotion: Walk Anticipated Mode of Locomotion: Walk Walk 10 feet (QC): 88 Walk 50 ft with 2 Turns(QC): 88 Gait Assistive Device: FWW Balance Sitting Static: Fair Sitting Dynamic: Fair Standing Static: Poor Standing Dynamic: Poor Treatment Patient performed sit to stand to FWW mod assist x 3 sets Assessment/Needs Patient will benefit from skilled PT to address functional strength and mobility to improve current LOF to safely return to home at maximum LOF. Rehab Potential: Guarded PT Fdc Goals Fdc Goals PT Fdc Goals Time Frame: Jan 29, 2023 Roll Left & Right (QC): 6 Sit to Lying (QC): 6 Lying-Sitting on Side/Bed(QC): 6 Sit to Stand (QC): 6 Chair/Pkx-ty-Bsbdk Xfer(QC): 6 Toilet Transfer (QC): 6 Walk 10 feet (QC): 6 Walk 50ft with 2 Turns (QC): 6 Walk 150 ft (QC): 6 PT Plan Problem List Problem List: Activity Tolerance, Functional Strength, Safety, Balance, Gait, Transfer, Bed Mobility Treatment/Plan Treatment Plan: Continue Plan of Care Treatment Plan: Bed Mobility, Education, Functional Activity Colleen, Functional Strength, Gait, Safety, Therapeutic Exercise, Transfers Treatment Duration: Jan 29, 2023 Frequency: 6 times per week Estimated Hrs Per Day: .25 hour per day Patient and/or Family Agrees t: Yes Time Time In: 1345 Time Out: 1400 DATE: Jan 06, 2023 Total Billed Treatment Time: 15 [facility] M[facility]L [facility] Jan 06, 2023 14:18
--- NOTE | 2023-01-06 16:23 | Occupational Therapy Eval ---
OT Evaluation-General/PLF Medical Diagnosis Admission Date Dec 23, 2022 at 09:00 Medical Diagnosis: Hypokalemia Onset Date: Dec 23, 2022 Therapy Diagnosis Therapy Diagnosis: weakness Precautions Precautions/Isolations: Fall Prevention, Standard Precautions Weight Bear Status Weight Bearing Restriction: Full Weight Bearing Referral Physician: Danica Worthy Reason: Evaluation/Treatment Medical History Pertinent Medical History: Alcoholism, Smoking Social History Home: Single Level Current Living Status: Children ADL-Prior Level of Function SCALE: Activities may be completed with or without assistive devices. 6-Lzkkzosnfo-uaqvpdb completes the activity by him/herself with no assistance from a helper. 5-Set-up or Clean-up Assistance-helper sets up or cleans up; patient completes activity. [place] assists only prior to or following the activity. 4-Supervision or Touching Assistance-helper provides verbal cues and/or touching/steadying and/or contact guard assistance as patient completes activity. Assistance may be provided throughout the activity or intermittently. 3-Partial/Moderate Assistance-helper does LESS THAN HALF the effort. [place] lifts, holds or supports trunk or limbs, but provides less than half the effort. 2-Substantial/Maximal Assistance-helper does MORE THAN HALF the effort. [place] lifts or holds trunk or limbs and provides more than half the effort. 7-Vkhdblxjl-oqpigr does ALL the effort. Patient does none of the effort to complete the activity. Or, the assistance of 2 or more helpers is required for the patient to complete the activity. If activity was not attempted, code reason: 7-Patient Refused. 9-Not Applicable-not attempted and the patient did not perform the activity before the current illness, exacerbation or injury. 10-Not Attempted due to Environmental Limitations-(lack of equipment, weather restraints, etc.). 88-Not Attempted due to Medical Conditions or Safety Concerns. ADL PLOF Comments 21 year old and 16 year old at home Self Care: Independent Functional Cognition: Independent Drive Self: Yes OT Current Status Subjective Agreeable to OT Mental Status/Objective Patient Orientation: Person, Place, Time, Situation Attachments: IV, Oxygen, Telemetry Current Glasses/Contacts: Yes Upper Extremity ROM BUE ROM WFLS Upper Extremity Coordination ATAXIC Upper Extremity Strength +3/5 ADL-Treatment Eating (QC): 6 Oral Hygiene (QC): 5 Shower/Bathe Self (QC): 7 Upper Body Dressing (QC): 3 Lower Body Dressing (QC): 3 On/Off Footwear (QC): 3 Toileting Hygiene (QC): 3 Education OT Patient Education: Exercise program, Modified ADL techniques, Progress toward Goal/Update tx plan, Purpose of tx/functional activities, Reviewed precautions, Safety issues, Transfer techniques Teaching Recipient: Patient Teaching Methods: Demonstration, Discussion Response to Teaching: Reinforcement Needed OT Jail Goals Tubing Assembler Goals 1=Demonstrate adherence to instructed precautions during ADL tasks. 2=Patient will verbalize/demonstrate understanding of assistive devices/modifications for ADL. 3=Patient will improve strength/tolerance for activity to enable patient to perform ADL's. OT Education/Plan Problem List/Assessment Assessment: Decreased Activ Tolerance, Decreased Safety Aware, Decreased UE Strength, Impaired Coordination, Impaired Funct Balance, Impaired Self-Care Skills Discharge Recommendations Plan/Recommendations: Continue POC Therapy Discharge Recommendati: Post Acute OT Treatment Plan/Plan of Care Treatment,Training & Education: Yes Patient would benefit from OT for education, treatment and training to promote independence in ADL's, mobility, safety and/or upper extremity function for ADL's. Plan of Care: ADL Retraining, Functional Mobility, Group Exercise/Act as Ind, U E Funct Exercise/Act, UE Neuromus Re-Ed/Coord Treatment Duration: Jan 14, 2023 Frequency: 3 times per week (3-5 times per week) Estimated Hrs Per Day: .25 hour per day Agreement: Yes Rehab Potential: Guarded Time Start Time: 13:45 Stop Time: 14:04 DATE: Jan 06, 2023 Total Time Billed (hr/min): 19 Billed Treatment Time EVM 19 min BETSEY MELENDREZ OT Jan 06, 2023 16:23
[2023-01-06] MEDS ORDERED: KCL 20 MEQ TAB (K-DUR) PO NR (18:15)
--- NOTE | 2023-01-06 18:23 | Progress Note ---
Subjective Subjective/Events-last exam States that she is feeling much better this AM. She was having agitation last night. Her anxiety is better. Tolerating PO diet. Has not been up out of bed. Review of Systems General: Fatigue Pulmonary: Cough Cardiovascular: No: Chest Pain, Palpitations, Edema Gastrointestinal: No: Nausea, Vomiting, Abdominal Pain, Diarrhea, Constipation Neurological: Weakness, Incoordination; No: Confusion Objective Exam Last Set of Vital Signs Vital Signs Date Time Temp Pulse Resp B/P (MAP) Pulse Ox O2 Delivery O2 Flow Rate FiO2 01/06/23 16:00 93 High Flow N/C 3.00 01/06/23 16:00 112 36 142/101 (115) 01/06/23 15:48 36.5 01/04/23 10:49 30 Capillary Refill : Less Than 3 Seconds I&O Intake and Output 01/06/23 00:00 Intake Total 1601.2 ml Output Total 3975 ml Balance -2373.8 ml Intake Oral 550 ml IV Total 1051.2 ml Output Urine Total 3975 ml # Bowel Movements 5 General: Alert, Oriented X3, No Acute Distress Lungs: Clear to Auscultation, Normal Air Movement Heart: Regular Rate, No Murmurs Abdomen: Normal Bowel Sounds, Soft, No Tenderness, No Masses Extremities: No Edema, No Tenderness/Swelling Neuro: Normal Speech Results/Procedures Lab Laboratory Tests 01/05/23 21:24: Glucometer 141H 01/05/23 23:41: Glucometer 130H 01/06/23 04:30: White Blood Count 19.8H, Red Blood Count 2.59L, Hemoglobin 9.2L, Hematocrit 26L, Mean Corpuscular Volume 102H, Mean Corpuscular Hemoglobin 36H, Mean Corpuscular Hemoglobin Concent 35, Red Cell Distribution Width 15.0H, Platelet Count 535H, Mean Platelet Volume 10.3, Immature Granulocyte % (Auto) 1, Neutrophils (%) (Auto) 90H, Lymphocytes (%) (Auto) 5L, Monocytes (%) (Auto) 3, Eosinophils (%) (Auto) 0, Basophils (%) (Auto) 0, Neutrophils # (Auto) 17.9H, Lymphocytes # (Auto) 0.9L, Monocytes # (Auto) 0.7, Eosinophils # (Auto) 0.0, Basophils # (Auto) 0.1, Immature Granulocyte # (Auto) 0.3H, Sodium Level 135, Potassium Level 2.9L, Chloride Level 106, Carbon Dioxide Level 20L, Anion Gap 9, Blood Urea Nitrogen 4L, Creatinine 0.44L, Estimat Glomerular Filtration Rate 125, BUN/Creatinine Ratio 9, Glucose Level 129H, Calcium Level 7.8L 01/06/23 07:32: Magnesium Level 1.7 01/06/23 11:35: Glucometer 165H 01/06/23 17:32: Glucometer 129H Microbiology 12/30/22 Gram Stain - Final, Complete 12/30/22 Sputum Culture - Final, Complete Staphylococcus aureus 12/24/22 Blood Culture - Final, Complete No growth Radiology CT head 12/23/22: IMPRESSION: No acute intracranial abnormality is detected although there is mild bilateral maxillary sinus and extensive right sphenoid sinus disease. CXR 12/23/22: IMPRESSION: No evidence of acute abnormality or complication post intubation. Assessment/Plan Assessment/Plan (1) Delirium tremens Status: Resolved Assessment & Plan: CT head without acute findings. Intubated, sedated on dexmedetomidine, fentanyl and midazolam, alcohol withdrawal protocol with CIWA and IV lorazepam, daily banana bag on admit. 01/03- has had persistent need for high sedation and ventilation, currently doing SBT and doing well, appreciate [facility] ICU recommendations. 01/04 extubated, remains on some Precedex and fentanyl, weaning slowly due to marked agitation previously. 01/05: Weaning off precedex, speech to come and evaluate patient prior to eating 01/06: Interested in outpatient treatment at [facility], transitioned to PO folic acid and thiamine (2) Macrocytic anemia Status: Chronic Assessment & Plan: 01/06: No signs of acute bleeding. S/p 1 unit pRBCs during admission. Low Fe with Low TIBC, will replace with PO Fe (3) Hypokalemia Status: Acute Assessment & Plan: Marked on admit, replacing with 60 mEq initially, recheck after and if near normal, will use protocol replacement. 12/24 improved to 3.3, continue replacing. 01/06: Replace and repeat in AM (4) Fever Status: Resolved Assessment & Plan: 01/03 Febrile this morning, zosyn ended on 01/02 am, will start cefazolin due to MSSA in sputum. (5) Elevated liver enzymes Status: Chronic Assessment & Plan: Chart review shows LFTs minimally elevated (AST/ALT in the 40s) 10/2021, so significantly above previous baseline. Consider acute alcoholic hepatitis. Check PT/INR, PTT and hepatitis panel as well as liver ultrasound with doppler to eval for other causes. 12/24 trending down. Liver US without mass or cirrhosis. Hepatitis panel positive only for Hep C antibody. (6) Alcohol withdrawal delirium Status: Acute (7) Hypomagnesemia Status: Resolved Assessment & Plan: Replaced (8) Hypophosphatemia Status: Acute Assessment & Plan: Replace and recheck. (9) Thrombocytopenia Status: Resolved Assessment & Plan: Last check at clinic 10/2021 CBC was normal. Suspect due to alcohol use/liver failure. Trending down early in admit, now has thrombocytosis (10) Leukopenia Status: Resolved Assessment & Plan: Previously normal a year ago. Suspect due to liver disease, normal 12/24 (11) Alcohol use disorder Status: Chronic (12) Opioid use disorder Status: Chronic Assessment & Plan: Per clinic chart, on Suboxone prescribed by Dr. Godoy, however, unable to confirm if still taking, was last seen at [facility] October 2021. (13) Hypertension Status: Chronic Assessment & Plan: Borderline hypotensive after intubation, hold home medications, monitor. (14) Bipolar disorder Status: Chronic (15) History of hepatitis C Status: Chronic Assessment & Plan: Per clinic records, treated in 2014 with good response, negative viral PCR in 2018. Check acute hepatitis panel given acute hepatitis, but Hep C antibody anticipated to be positive, if remainder of acute testing negative, check Hep C PCR if liver enzymes persistently markedly elevated. (16) DVT prophylaxis Status: Acute Assessment & Plan: Enoxaparin JAKE DUGAN MD Jan 06, 2023 18:23
--- NOTE | 2023-01-06 21:13 | Diagnostic Imaging Report ---
INDICATION: PICC line placement. FINDINGS: Left upper extremity PICC line tip is near the innominate confluence. Lungs are clear. There is no effusion or pneumothorax. IMPRESSION: No acute abnormality in the chest. Dictated by: Dictated on workstation # [id number]
[2023-01-06] MEDS: QUEtiapine 25 MG (SEROquel) TAB IMMEDIATE RELEASE PO SCH (21:55)
[2023-01-07] MEDS: inSUlin ASPART (NovoLOG) 1 UNIT/0.01 ML (CHARGE PER UNIT) SQ SCH ×2 (00:34→07:24)
[2023-01-07] MEDS: fentaNYL INJ 100 MCG/2 ML AMP IVP PRN ×2 (02:31→16:00)
[2023-01-07] MEDS: LORazepam INJ 2 MG/ML (ATIVAN) VIAL IV PRN ×2 (03:59→15:57)
[2023-01-07 04:53] LABS: BASOPHILS % (AUTO) 0 % (0-10); EOSINOPHILS % (AUTO) 0 % (0-10); HEMATOCRIT 32 % (35-52); HEMOGLOBIN 10.6 g/dL (11.5-16.0); LYMPHOCYTES # (AUTO) 1.2 10^3/uL (1.0-4.0); LYMPHOCYTES % (AUTO) 6 % (12-44); MEAN CORPUSCULAR HEMOGLOBIN 35 pg (25-34); MEAN CORPUSCULAR HGB CONC 33 g/dL (32-36); MEAN CORPUSCULAR VOLUME 104 fL (80-99); MEAN PLATELET VOLUME 10.6 fL (9.0-12.2); MONOCYTES # (AUTO) 0.7 10^3/uL (0.0-1.0); MONOCYTES % (AUTO) 4 % (0-12); NEUTROPHILS # (AUTO) 17.1 10^3/uL (1.8-7.8); NEUTROPHILS % (AUTO) 89 % (42-75); PLATELET COUNT 571 10^3/uL (130-400); WHITE BLOOD COUNT 19.3 10^3/uL (4.3-11.0)
[2023-01-07 05:16] LABS: CALCIUM 8.7 MG/DL (8.5-10.1); CREATININE SERUM 0.52 MG/DL (0.60-1.30); POTASSIUM 3.9 MMOL/L (3.6-5.0)
[2023-01-07] MEDS: ceFAZolin INJECTION 2,000 MG in NS (IVPB) 50 ML IV SCH ×3 (06:39→20:47)
[2023-01-07] MEDS: POTASSIUM CL 10MEQ/50ML IVPB 50 ML IV SCH ×2 (06:39→06:56)
[2023-01-07] MEDS: KCL 20 MEQ TAB (K-DUR) PO SCH (07:23)
[2023-01-07] MEDS: POTASSIUM BICARB 20 MEQ (EFFER-K) TABLET PO SCH (07:23)
[2023-01-07] MEDS: MAGNESIUM 1 GM/100 ML IVPB 100 ML IV SCH (07:23)
[2023-01-07] MEDS: FAMOTIDINE 20 MG (PEPCID) TABLET PO SCH (08:19)
[2023-01-07] MEDS: PHENobarbital 64.8 MG (1 GRAIN) TAb PO SCH ×2 (08:19→20:46)
[2023-01-07] MEDS: GABAPENTIN 300 MG (NEURONTIN) CAP PO SCH ×2 (08:20→20:46)
[2023-01-07] MEDS: FOLIC ACID 1 MG TAB PO SCH (08:20)
[2023-01-07] MEDS: ENOXAPARIN 40 MG/0.4 ML (LOVENOX) SYR SC SCH (08:20)
[2023-01-07] MEDS: THIAMINE 100 MG (VITAMIN B-1) TAB PO SCH (08:28)
--- NOTE | 2023-01-07 08:40 | Tele-ICU Progress Note ---
Subjective Date Seen by a Provider: Jan 07, 2023 Time Seen by a Provider: 08:35 Subjective/Events-last exam (Tele-ICU Physician , Progress Note ) Service provided via interactive audio and video telecommunications E-CARE system to a patient admitted to ICU bed in [facility]. Patient is seen today due to persistent need of ICU care Available chart/ vitals / labs / Images reviewed Video assessment done using teleICU camera, rest of exam as per RN Discussed with RN Extubated on 01/04, now on 3 lpm NC with SpO2 98%, spont RR 18, Remains off IV Precedex due to Hx of substance abuse Day 4 of IV Cefazolin WBC stll elevated, about same 19.3 Still + CIWA, needed IV Ativan today 1 mg Pulling at lines, tremors, no hallucinations Sepsis Event Evaluation Height, Weight, BMI Height: '" Weight: lbs. oz. kg; 22.06 BMI Method: Exam Exam Patient acknowledged, consented, and participated in this virtual visit which was conducted using real time audio/video Vital Signs Date Time Temp Pulse Resp B/P (MAP) Pulse Ox O2 Delivery O2 Flow Rate FiO2 01/07/23 08:00 107 18 138/88 (101) 96 High Flow N/C 3.00 01/07/23 07:53 37.2 01/07/23 07:00 110 01/07/23 07:00 108 34 144/106 (117) 96 High Flow N/C 3.00 01/07/23 06:00 112 23 136/93 (107) 97 High Flow N/C 3.00 01/07/23 05:00 123 23 139/103 (115) 97 High Flow N/C 3.00 01/07/23 04:05 93 High Flow N/C 3.00 01/07/23 04:00 37.3 01/07/23 04:00 110 23 144/97 (113) 95 High Flow N/C 3.00 01/07/23 03:00 114 21 129/102 (111) 94 High Flow N/C 3.00 01/07/23 02:00 107 29 135/96 (109) 94 High Flow N/C 3.00 01/07/23 01:00 120 01/07/23 01:00 112 24 147/94 (111) 95 High Flow N/C 3.00 01/07/23 00:23 94 High Flow N/C 3.00 01/07/23 00:00 36.6 01/07/23 00:00 105 24 137/109 (118) 97 High Flow N/C 3.00 01/06/23 23:00 102 134/98 (110) 94 High Flow N/C 3.00 01/06/23 22:00 113 18 142/108 (119) 92 High Flow N/C 3.00 01/06/23 21:00 111 18 141/104 (116) 93 High Flow N/C 3.00 01/06/23 20:00 93 High Flow N/C 3.00 01/06/23 20:00 109 20 139/114 (122) 92 High Flow N/C 3.00 01/06/23 19:24 116 01/06/23 19:00 115 26 140/94 (109) 91 High Flow N/C 3.00 01/06/23 18:00 107 26 141/107 (118) 94 High Flow N/C 3.00 01/06/23 17:00 105 34 129/95 (106) 89 High Flow N/C 3.00 01/06/23 16:00 93 High Flow N/C 3.00 01/06/23 16:00 112 36 142/101 (115) 94 High Flow N/C 3.00 01/06/23 15:48 36.5 01/06/23 15:00 116 23 170/99 (122) 96 High Flow N/C 3.00 01/06/23 14:30 Nasal Cannula 01/06/23 14:30 36.5 01/06/23 14:00 129 24 147/117 (127) 92 High Flow N/C 3.00 01/06/23 13:39 38.0 01/06/23 13:00 126 01/06/23 13:00 138 23 145/114 (124) 94 High Flow N/C 3.00 01/06/23 12:15 94 High Flow N/C 3.00 01/06/23 12:00 38.0 01/06/23 12:00 116 36 136/97 (110) 94 High Flow N/C 3.00 01/06/23 11:00 112 13 143/102 (116) 89 High Flow N/C 3.00 01/06/23 10:00 105 36 158/112 (127) 92 High Flow N/C 3.00 01/06/23 09:00 112 22 133/102 (112) 89 High Flow N/C 3.00 I & O 01/07/23 07:00 Intake Total 2575 ml Output Total 3950 ml Balance -1375 ml Height & Weight Height: '" Weight: lbs. oz. kg; 22.06 BMI Method: General Appearance: No Apparent Distress, WD/WN, Chronically ill, Mild Distress, Other (Awake and alert) HEENT: No PERRL/EOMI, No TMs Normal, No Normal ENT Inspection, No Pharynx Normal, No Moist Mucous Membranes, No Pale Conjunctivae (L), No Pale Conjunctivae (R), No Pharyngeal Erythema, No Photophobia, No Scleral Icterus (L ), No Scleral Icterus (R), No TM Abnormal (L), No TM Abnormal (R), No Tonsillar Exudate, No Tonsillar Enlargement, No Other Neck: No Full Range of Motion, No Normal Inspection, No Non Tender, No Supple, No Carotid Bruit, No JVD, No Limited Range of Motion, No Lymphadenopathy (L), No Lymphadenopathy (R), No Tender Lateral, No Tender Midline, No Thyromegaly, No Other Respiratory: No Accessory Muscle Use, Decreased Breath Sounds, Rhonci Cardiovascular: Regular Rate, Rhythm Capillary Refill: Less Than 3 Seconds Peripheral Pulses: 2+ Dorsalis Pedis (R), 2+ Left Dors-Pedis (L) Gastrointestinal: normal bowel sounds, non tender, soft, other (abd is distended, got MOM) Extremity: No Pedal Edema Neurologic/Psychiatric: Other (sedated) Results Lab Laboratory Tests 01/06/23 04:30 01/07/23 04:14 Assessment/Plan Assessment/Plan Resolving PNA, continue IV Cefazolin, s/p intubation with mechanical ventilation, Continues to improve Still some agitation probably from EtOH and drug use Can go to floor Critical Care: Critically Ill Patient Time spent with patient (mins): 20 HAMLET BRUNER MD Jan 07, 2023 08:40
[2023-01-07] MEDS ORDERED: CLONIDINE PATCH REMOVAL TP SCH (08:59)
--- NOTE | 2023-01-07 09:02 | Progress Note - Hospitalist ---
Subjective HPI/CC On Admission Date Seen by Provider: Jan 07, 2023 Time Seen by Provider: 11:00 Subjective/Events-last exam Improved overall Moving to 4th Seroquel improved agitation Review of Systems General: Fatigue, Malaise Objective Exam Vital Signs Vital Signs Date Time Temp Pulse Resp B/P (MAP) Pulse Ox O2 Delivery O2 Flow Rate FiO2 01/08/23 03:03 36.8 109 16 151/98 (115) 91 High Flow N/C 3.00 3.00 01/04/23 10:49 30 Capillary Refill : Less Than 3 Seconds General Appearance: No Apparent Distress, WD/WN, Chronically ill Respiratory: Crackles Cardiovascular: Regular Rate, Rhythm Neurologic/Psychiatric: Alert, Oriented x3 Results/Procedures Lab Patient resulted labs reviewed. Assessment/Plan Assessment and Plan Assess & Plan/Chief Complaint Severe alcohol withdrawal requiring intubation now extubated (1) Delirium tremens (2) Elevated liver enzymes (3) Alcohol withdrawal delirium (4) Hypokalemia (5) Hypomagnesemia (6) Hypophosphatemia (7) Thrombocytopenia (8) Leukopenia (9) Alcohol use disorder (10) Opioid use disorder (11) Hypertension (12) Bipolar disorder (13) History of hepatitis C (14) DVT prophylaxis Supportive care PT OT Critical Care Critically Ill Patient JEN SEXTON DO Jan 07, 2023 09:02
--- NOTE | 2023-01-07 10:29 | Physical Therapy Progress Note ---
Therapy Progress Note Patient received ativan this a.m. due to anxiety. Patient too sedated to safely participate with skilled therapy. Will attempt this p.m. if time/scheduling permits. MERYL ARAUJO PT Jan 07, 2023 10:29
--- NOTE | 2023-01-07 10:34 | Speech Therapy Progress Note ---
Therapy Progress Note Speech pathology attempted skilled dysphagia therapy at 0905 on this date. Upon entrance to the room the patient was sleeping and reclined in bed. Per RN, the patient recently received Ativan for anxiety. The clinician requested assistance from the RN to reposition the patient upright in bed. Once upright, the room lights were placed on and multiple P.O. options were provided to the patient. Consistent verbal prompting and encouragement were provided by the clinician for appropriate alertness and participation. Regardless of the clinician's efforts, the patient remained with eyes closed, sleeping soundly. At this time, the patient is not appropriate or safe for participation with skilled dysphagia therapy or P.O. intake. The patient should not be provided P.O. options in her current state of lethargy. ST to reattempt as able and the patient is appropriate for participation. Continue with the current plan of care. GABRIELA DWYER Jan 07, 2023 10:34
[2023-01-07] MEDS: cloNIDine 0.2 MG PATCH (CATAPRES TTS) TDSY TD SCH (11:35)
--- NOTE | 2023-01-07 13:52 | Physical Therapy Daily Note ---
PT Daily Note-Current Subjective Patient agrees to PT. No c/o at this time. Pain Section J - Health Conditions 1. Rarely or not at all 2. Occasionally 3. Frequently 4. Almost constantly 8. Unable to answer Pain Effect on Sleep: 2 Pain Interference with Therapy: 2 Pain Interference w/Day-to-Day: 2 Mental Status Patient Orientation: Person, Place, Time, Situation Attachments: Oxygen, Antony Catheter, IV Transfers SCALE: Activities may be completed with or without assistive devices. 4-Ymbstrdfws-fmzbgkv completes the activity by him/herself with no assistance from a helper. 5-Set-up or Clean-up Assistance-helper sets up or cleans up; patient completes activity. [place] assists only prior to or following the activity. 4-Supervision or Touching Assistance-helper provides verbal cues and/or touching/steadying and/or contact guard assistance as patient completes activity. Assistance may be provided throughout the activity or intermittently. 3-Partial/Moderate Assistance-helper does LESS THAN HALF the effort. [place] lifts, holds or supports trunk or limbs, but provides less than half the effort. 2-Substantial/Maximal Assistance-helper does MORE THAN HALF the effort. [place] l ifts or holds trunk or limbs and provides more than half the effort. 4-Gmikchskd-yfsvqb does ALL the effort. Patient does none of the effort to complete the activity. Or, the assistance of 2 or more helpers is required for the patient to complete the activity. If activity was not attempted, code reason: 7-Patient Refused. 9-Not Applicable-not attempted and the patient did not perform the activity before the current illness, exacerbation or injury. 10-Not Attempted due to Environmental Limitations-(lack of equipment, weather restraints, etc.). 88-Not Attempted due to Medical Conditions or Safety Concerns. Lying to Sitting/Side of Bed(Q: 3 Sit to Stand (QC): 3 Chair/Xbc-po-Oakzm Xfer(QC): 3 mod assist with all mobility on this date Exercises Seated Therapy Exercises: Ankle pumps, Sit to stand (x 3 sets mod assist), Long arc quads Seated Reps: 15 Assessment Patient appears more lethargic on this date. PT to increase activity as tolerated by patient. Patient is currently requiring mod assist with all mobility and unable to safely ambulate with FWW due to weakness. PT Packing And Final Assembly Supervisor Goals Packing And Final Assembly Supervisor Goals PT Skilled Nursing Goals Time Frame: Jan 29, 2023 Roll Left & Right (QC): 6 Sit to Lying (QC): 6 Lying-Sitting on Side/Bed(QC): 6 Sit to Stand (QC): 6 Chair/Jwq-ng-Nfqny Xfer(QC): 6 Toilet Transfer (QC): 6 Walk 10 feet (QC): 6 Walk 50ft with 2 Turns (QC): 6 Walk 150 ft (QC): 6 PT Plan Treatment/Plan Treatment Plan: Continue Plan of Care Treatment Plan: Bed Mobility, Education, Functional Activity Colleen, Functional Strength, Gait, Safety, Therapeutic Exercise, Transfers Treatment Duration: Jan 29, 2023 Frequency: 6 times per week Estimated Hrs Per Day: .25 hour per day Patient and/or Family Agrees t: Yes Time Time In: 1312 Time Out: 1325 DATE: Jan 07, 2023 Total Billed Treatment Time: 13 Total Billed Treatment 1 visit FA 13 min MERYL ARAUJO PT Jan 07, 2023 13:52
--- NOTE | 2023-01-07 15:03 | Occupational Ther Daily Note ---
OT Current Status-Daily Note Subjective Pt lethargic, is following commands and mumbles for answers. When STEPHENS entered room, pt had taken card and placed in mouth ripping it into pieces then one stuck onto lips and pt unable to reach up to remove it. STEPHENS gathered pieces and threw away. Pt participates in skilled therapy. Unable to assess pain l evel Mental Status/Objective Patient Orientation: Person, Confused Attachments: Oxygen ADL-Treatment Pt completed 1 sets 10 reps of shldr elevations with uncoordinated movements. Pt attempted to brush hair though due to weakness unable to complete efficiently. Decreased harpoon engagement planning operator and uncoordinated movements hindered pt from completing oral care by self, assist needed to complete. Pt able to grasp washcloth and was lips after oral care. After therapy, pt sitting in recliner with call light/phone in reach. All needs met in room. Therapy Code Descriptions/Definitions Functional [place] Measure: 0=Not Assessed/NA 4=Minimal Assistance 1=Total Assistance 5=Supervision or Setup 2=Maximal Assistance 6=Modified [place] 3=Moderate Assistance 7=Complete IndependenceSCALE: Activities may be completed with or without assistive devices. 2-Zpjdptijrn-xrfubej completes the activity by him/herself with no assistance from a helper. 5-Set-up or Clean-up Assistance-helper sets up or cleans up; patient completes activity. [place] assists only prior to or following the activity. 4-Supervision or Touching Assistance-helper provides verbal cues and/or touching/steadying and/or contact guard assistance as patient completes activity. Assistance may be provided throughout the activity or intermittently. 3-Partial/Moderate Assistance-helper does LESS THAN HALF the effort. [place] lifts, holds or supports trunk or limbs, but provides less than half the effort. 2-Substantial/Maximal Assistance-helper does MORE THAN HALF the effort. [place] lifts or holds trunk or limbs and provides more than half the effort. 0-Oujfdzvck-lyqirv does ALL the effort. Patient does none of the effort to complete the activity. Or, the assistance of 2 or more helpers is required for the patient to complete the activity. If activity was not attempted, code reason: 7-Patient Refused. 9-Not Applicable-not attempted and the patient did not perform the activity before the current illness, exacerbation or injury. 10-Not Attempted due to Environmental Limitations-(lack of equipment, weather restraints, etc.). 88-Not Attempted due to Medical Conditions or Safety Concerns. Oral Hygiene (QC): 2 OT Supervisor Lens Generating Goals Prison Goals 1=Demonstrate adherence to instructed precautions during ADL tasks. 2=Patient will verbalize/demonstrate understanding of assistive devices/modifications for ADL. 3=Patient will improve strength/tolerance for activity to enable patient to perform ADL's. OT Education/Plan Problem List/Assessment Assessment: Decreased Activ Tolerance, Decreased Safety Aware, Decreased UE Strength, Impaired Cognition, Impaired Coordination, Impaired Funct Balance, Impaired Self-Care Skills Discharge Recommendations Plan/Recommendations: Continue POC Treatment Plan/Plan of Care Patient would benefit from OT for education, treatment and training to promote independence in ADL's, mobility, safety and/or upper extremity function for ADL's. Plan of Care: ADL Retraining, Functional Mobility, Group Exercise/Act as Ind, UE Funct Exercise/Act, UE Neuromus Re-Ed/Coord Treatment Duration: Jan 14, 2023 Frequency: 3 times per week (3-5 times per week) Estimated Hrs Per Day: .25 hour per day Agreement: Yes Rehab Potential: Guarded Time Start Time: 14:45 Stop Time: 15:00 DATE: Jan 07, 2023 Total Time Billed (hr/min): 15 Billed Treatment Time 1 visit-ADL 1 (15 min) RUSS NOLEN Jan 07, 2023 15:02
[2023-01-07 15:16] VITALS: BP 133/86
[2023-01-07 17:38] VITALS: BP 129/87
[2023-01-07 19:51] VITALS: BP 151/91
[2023-01-07] MEDS: QUEtiapine 25 MG (SEROquel) TAB IMMEDIATE RELEASE PO SCH (20:46)
[2023-01-07 23:44] VITALS: BP 131/85
[2023-01-08] VITALS (7 sets, daily range): BP systolic 129–151; BP diastolic 78–98
[2023-01-08] MEDS: LORazepam INJ 2 MG/ML (ATIVAN) VIAL IV PRN ×2 (00:46→03:26)
[2023-01-08] MEDS: fentaNYL INJ 100 MCG/2 ML AMP IVP PRN ×2 (00:51→09:47)
[2023-01-08] MEDS: THIAMINE 100 MG (VITAMIN B-1) TAB PO SCH (05:56)
[2023-01-08] MEDS: MULTIVIT W/MINERALS TAB (THERAGRAN M) PO SCH (05:56)
[2023-01-08] MEDS: ceFAZolin INJECTION 2,000 MG in NS (IVPB) 50 ML IV SCH (05:56)
[2023-01-08] MEDS: POTASSIUM BICARB 20 MEQ (EFFER-K) TABLET PO SCH (06:14)
--- NOTE | 2023-01-08 07:17 | Progress Note - Hospitalist ---
Subjective HPI/CC On Admission Date Seen by Provider: Jan 08, 2023 Time Seen by Provider: 11:00 Subjective/Events-last exam Patient doing well Discontinue catheter Discontinue telemetry Stop IV medication for pain Transition to oxycodone Review of Systems General: Fatigue, Malaise Neurological: Weakness Objective Exam Vital Signs Vital Signs Date Time Temp Pulse Resp B/P (MAP) Pulse Ox O2 Delivery O2 Flow Rate FiO2 01/08/23 20:42 High Flow N/C 3.00 01/08/23 19:36 37.7 115 18 135/89 (104) 93 01/08/23 08:08 21 Capillary Refill : Less Than 3 Seconds General Appearance: No Apparent Distress, WD/WN, Chronically ill Respiratory: Lungs Clear, Normal Breath Sounds Cardiovascular: Regular Rate, Rhythm Neurologic/Psychiatric: Alert, Oriented x3 Results/Procedures Lab Laboratory Tests 01/08/23 08:25 Patient resulted labs reviewed. Assessment/Plan Assessment and Plan Assess & Plan/Chief Complaint Severe alcohol withdrawal requiring intubation now extubated (1) Delirium tremens (2) Elevated liver enzymes (3) Alcohol withdrawal delirium (4) Hypokalemia (5) Hypomagnesemia (6) Hypophosphatemia (7) Thrombocytopenia (8) Leukopenia (9) Alcohol use disorder (10) Opioid use disorder (11) Hypertension (12) Bipolar disorder (13) History of hepatitis C (14) DVT prophylaxis Supportive care PT OT Critical Care Critically Ill Patient SEXTON,JEN NELSON Jan 08, 2023 07:16
[2023-01-08] MEDS: RT-ALBUTEROL/IPRATROPIUM 3 ML (DUONEB) VIAL INH PRN (07:56)
[2023-01-08 08:32] LABS: BASOPHILS % (AUTO) 0 % (0-10); EOSINOPHILS % (AUTO) 0 % (0-10); HEMATOCRIT 29 % (35-52); LYMPHOCYTES # (AUTO) 1.6 10^3/uL (1.0-4.0); LYMPHOCYTES % (AUTO) 9 % (12-44); MEAN CORPUSCULAR HEMOGLOBIN 35 pg (25-34); MEAN CORPUSCULAR HGB CONC 34 g/dL (32-36); MEAN CORPUSCULAR VOLUME 103 fL (80-99); MEAN PLATELET VOLUME 9.8 fL (9.0-12.2); MONOCYTES # (AUTO) 0.6 10^3/uL (0.0-1.0); MONOCYTES % (AUTO) 4 % (0-12); NEUTROPHILS # (AUTO) 15.3 10^3/uL (1.8-7.8); NEUTROPHILS % (AUTO) 87 % (42-75); PLATELET COUNT 564 10^3/uL (130-400); WHITE BLOOD COUNT 17.7 10^3/uL (4.3-11.0)
[2023-01-08 08:42] LABS: ALBUMIN 3.1 GM/DL (3.2-4.5); POTASSIUM 3.7 MMOL/L (3.6-5.0)
[2023-01-08 08:43] LABS: CALCIUM 8.9 MG/DL (8.5-10.1)
[2023-01-08 08:44] LABS: TOTAL PROTEIN 6.9 GM/DL (6.4-8.2)
[2023-01-08 08:46] LABS: BILIRUBIN,TOTAL 0.8 MG/DL (0.1-1.0)
[2023-01-08 08:48] LABS: CREATININE SERUM 0.51 MG/DL (0.60-1.30)
[2023-01-08] MEDS: GABAPENTIN 300 MG (NEURONTIN) CAP PO SCH ×2 (09:29→20:49)
[2023-01-08] MEDS: PHENobarbital 64.8 MG (1 GRAIN) TAb PO SCH ×2 (09:29→20:50)
[2023-01-08] MEDS: FOLIC ACID 1 MG TAB PO SCH (09:29)
[2023-01-08] MEDS: ENOXAPARIN 40 MG/0.4 ML (LOVENOX) SYR SC SCH (09:30)
[2023-01-08] MEDS: FAMOTIDINE 20 MG (PEPCID) TABLET PO SCH (09:30)
--- NOTE | 2023-01-08 10:55 | Physical Therapy Daily Note ---
PT Daily Note-Current Subjective Pt is in bed, no complaints on arrival. Pain Section J - Health Conditions 1. Rarely or not at all 2. Occasionally 3. Frequently 4. Almost constantly 8. Unable to answer Pain Effect on Sleep: 2 Pain Interference with Therapy: 2 Pain Interference w/Day-to-Day: 2 Mental Status Patient Orientation: Person, Place, Time, Situation Attachments: Antony Catheter Transfers SCALE: Activities may be completed with or without assistive devices. 9-Dlzcxqanqm-crvbidj completes the activity by him/herself with no assistance from a helper. 5-Set-up or Clean-up Assistance-helper sets up or cleans up; patient completes activity. [place] assists only prior to or following the activity. 4-Supervision or Touching Assistance-helper provides verbal cues and/or touching/steadying and/or contact guard assistance as patient completes activity. Assistance may be provided throughout the activity or intermittently. 3-Partial/Moderate Assistance-helper does LESS THAN HALF the effort. [place] lifts, holds or supports trunk or limbs, but provides less than half the effort. 2-Substantial/Maximal Assistance-helper does MORE THAN HALF the effort. [place] lifts or holds trunk or limbs and provides more than half the effort. 3-Kfmnftplg-haagta does ALL the effort. Patient does none of the effort to complete the activity. Or, the assistance of 2 or more helpers is required for the patient to complete the activity. If activity was not attempted, code reason: 7-Patient Refused. 9-Not Applicable-not attempted and the patient did not perform the activity before the current illness, exacerbation or injury. 10-Not Attempted due to Environmental Limitations-(lack of equipment, weather restraints, etc.). 88-Not Attempted due to Medical Conditions or Safety Concerns. Roll Left & Right (QC): 5 Sit to Lying (QC): 5 Lying to Sitting/Side of Bed(Q: 4 Sit to Stand (QC): 3 Gait Training Does the Patient Walk?: Yes Distance: 2ft Gait Persons Needed: 1 Gait Assistive Device: Handheld Assist Took steps (L) and (R), very unsteady. Exercises Supine Ex: LE Protocol Supine Reps: 20 Able to perform all supine ex without contact assistance. Verbal cues needed to stay on task. Assessment Current Status: Good Progress Pt was able to stand and take steps laterally with hand held assistance. She was very unsteady in standing. Needing contact assist to stay standing safely. Stood twice for 30 seconds each. Sat edge of bed twice for 1 min each. PT [facility] Goals Mdm Developer Goals PT [facility] Goals Time Frame: Jan 29, 2023 Roll Left & Right (QC): 6 Sit to Lying (QC): 6 Lying-Sitting on Side/Bed(QC): 6 Sit to Stand (QC): 6 Chair/Fvu-di-Snxcu Xfer(QC): 6 Toilet Transfer (QC): 6 Walk 10 feet (QC): 6 Walk 50ft with 2 Turns (QC): 6 Walk 150 ft (QC): 6 PT Plan Treatment/Plan Treatment Plan: Continue Plan of Care Treatment Plan: Bed Mobility, Education, Functional Activity Colleen, Functional Strength, Gait, Safety, Therapeutic Exercise, Transfers Treatment Duration: Jan 29, 2023 Frequency: 6 times per week Estimated Hrs Per Day: .25 hour per day Patient and/or Family Agrees t: Yes Time Time In: 1020 Time Out: 1036 DATE: Jan 08, 2023 Total Billed Treatment Time: 16 Total Billed Treatment 1. ex 16 GLORY GIBSON PT Jan 08, 2023 10:55
[2023-01-08] MEDS ORDERED: RT-ALBUTEROL/IPRATROPIUM 3 ML (DUONEB) VIAL INH PRN (11:00)
[2023-01-08] MEDS: RT-ALBUTEROL/IPRATROPIUM 3 ML (DUONEB) VIAL INH SCH ×2 (14:48→21:21)
[2023-01-08] MEDS: QUEtiapine 25 MG (SEROquel) TAB IMMEDIATE RELEASE PO SCH (20:50)
[2023-01-09 04:01] VITALS: BP 133/74
[2023-01-09] MEDS: RT-ALBUTEROL/IPRATROPIUM 3 ML (DUONEB) VIAL INH SCH ×4 (04:04→22:13)
[2023-01-09] MEDS: MULTIVIT W/MINERALS TAB (THERAGRAN M) PO SCH (05:05)
[2023-01-09] MEDS: THIAMINE 100 MG (VITAMIN B-1) TAB PO SCH (05:05)
[2023-01-09 05:26] LABS: BASOPHILS # (AUTO) 0.1 10^3/uL (0.0-0.1); BASOPHILS % (AUTO) 1 % (0-10); EOSINOPHILS # (AUTO) 0.1 10^3/uL (0.0-0.3); EOSINOPHILS % (AUTO) 1 % (0-10); HEMATOCRIT 29 % (35-52); LYMPHOCYTES # (AUTO) 1.7 10^3/uL (1.0-4.0); LYMPHOCYTES % (AUTO) 15 % (12-44); MEAN CORPUSCULAR HEMOGLOBIN 35 pg (25-34); MEAN CORPUSCULAR HGB CONC 34 g/dL (32-36); MEAN CORPUSCULAR VOLUME 101 fL (80-99); MEAN PLATELET VOLUME 9.6 fL (9.0-12.2); MONOCYTES # (AUTO) 0.5 10^3/uL (0.0-1.0); MONOCYTES % (AUTO) 4 % (0-12); NEUTROPHILS # (AUTO) 9.5 10^3/uL (1.8-7.8); NEUTROPHILS % (AUTO) 79 % (42-75); PLATELET COUNT 546 10^3/uL (130-400); WHITE BLOOD COUNT 11.9 10^3/uL (4.3-11.0)
[2023-01-09 05:43] LABS: ALBUMIN 3.1 GM/DL (3.2-4.5); BILIRUBIN,TOTAL 0.8 MG/DL (0.1-1.0); CALCIUM 9.1 MG/DL (8.5-10.1); CREATININE SERUM 0.52 MG/DL (0.60-1.30); POTASSIUM 3.5 MMOL/L (3.6-5.0); TOTAL PROTEIN 6.8 GM/DL (6.4-8.2)
[2023-01-09] MEDS: POTASSIUM BICARB 20 MEQ (EFFER-K) TABLET PO SCH (06:28)
--- NOTE | 2023-01-09 07:00 | Progress Note - Hospitalist ---
Subjective HPI/CC On Admission Date Seen by Provider: Jan 09, 2023 Time Seen by Provider: 11:00 Subjective/Events-last exam Improved status BM+ No severe pain Review of Systems General: Fatigue, Malaise Objective Exam Vital Signs Vital Signs Date Time Temp Pulse Resp B/P (MAP) Pulse Ox O2 Delivery O2 Flow Rate FiO2 01/09/23 16:00 36.7 102 18 135/72 (93) 93 Room Air 01/09/23 15:00 0.00 01/08/23 08:08 21 Capillary Refill : Less Than 3 Seconds General Appearance: No Apparent Distress, WD/WN, Chronically ill Respiratory: Lungs Clear, Normal Breath Sounds Cardiovascular: Regular Rate, Rhythm Neurologic/Psychiatric: Alert, Oriented x3, Normal Mood/Affect, Motor Weakness Results/Procedures Lab Laboratory Tests 01/09/23 05:16 Patient resulted labs reviewed. Assessment/Plan Assessment and Plan Assess & Plan/Chief Complaint Severe alcohol withdrawal requiring intubation now extubated (1) Delirium tremens (2) Elevated liver enzymes (3) Alcohol withdrawal delirium (4) Hypokalemia (5) Hypomagnesemia (6) Hypophosphatemia (7) Thrombocytopenia (8) Leukopenia (9) Alcohol use disorder (10) Opioid use disorder (11) Hypertension (12) Bipolar disorder (13) History of hepatitis C (14) DVT prophylaxis Supportive care PT OT Critical Care Critically Ill Patient JEN SEXTON DO Jan 09, 2023 07:00
[2023-01-09 07:29] VITALS: BP 114/76
[2023-01-09] MEDS: FAMOTIDINE 20 MG (PEPCID) TABLET PO SCH (08:40)
[2023-01-09] MEDS: FOLIC ACID 1 MG TAB PO SCH (08:40)
[2023-01-09] MEDS: PHENobarbital 64.8 MG (1 GRAIN) TAb PO SCH ×2 (08:40→19:48)
[2023-01-09] MEDS: ENOXAPARIN 40 MG/0.4 ML (LOVENOX) SYR SC SCH (08:40)
[2023-01-09] MEDS: GABAPENTIN 300 MG (NEURONTIN) CAP PO SCH ×2 (08:40→19:48)
[2023-01-09] MEDS ORDERED: POTASSIUM BICARB 20 MEQ (EFFER-K) TABLET PO ONE (09:00)
[2023-01-09 11:44] VITALS: BP 118/79
[2023-01-09 16:00] VITALS: BP 135/72
[2023-01-09] MEDS: QUEtiapine 25 MG (SEROquel) TAB IMMEDIATE RELEASE PO SCH (19:48)
[2023-01-09] MEDS: ACETAMINOPHEN 500 MG TAB (TYLENOL) PO PRN (19:49)
[2023-01-09 19:55] VITALS: BP 119/73
[2023-01-09 23:41] VITALS: BP 124/72
[2023-01-10] MEDS: RT-ALBUTEROL/IPRATROPIUM 3 ML (DUONEB) VIAL INH SCH ×2 (02:36→07:15)
[2023-01-10 03:13] VITALS: BP 117/81
[2023-01-10 04:45] LABS: BASOPHILS # (AUTO) 0.1 10^3/uL (0.0-0.1); BASOPHILS % (AUTO) 1 % (0-10); EOSINOPHILS # (AUTO) 0.1 10^3/uL (0.0-0.3); EOSINOPHILS % (AUTO) 1 % (0-10); HEMATOCRIT 30 % (35-52); HEMOGLOBIN 10.2 g/dL (11.5-16.0); LYMPHOCYTES # (AUTO) 1.5 10^3/uL (1.0-4.0); LYMPHOCYTES % (AUTO) 17 % (12-44); MEAN CORPUSCULAR HEMOGLOBIN 34 pg (25-34); MEAN CORPUSCULAR HGB CONC 34 g/dL (32-36); MEAN CORPUSCULAR VOLUME 102 fL (80-99); MEAN PLATELET VOLUME 9.9 fL (9.0-12.2); MONOCYTES # (AUTO) 0.6 10^3/uL (0.0-1.0); MONOCYTES % (AUTO) 6 % (0-12); NEUTROPHILS % (AUTO) 75 % (42-75); PLATELET COUNT 532 10^3/uL (130-400); WHITE BLOOD COUNT 9.3 10^3/uL (4.3-11.0)
[2023-01-10 04:47] LABS: ALBUMIN 3.2 GM/DL (3.2-4.5); POTASSIUM 3.8 MMOL/L (3.6-5.0)
[2023-01-10 04:48] LABS: CALCIUM 9.2 MG/DL (8.5-10.1)
[2023-01-10 04:49] LABS: TOTAL PROTEIN 7.2 GM/DL (6.4-8.2)
[2023-01-10 04:51] LABS: BILIRUBIN,TOTAL 0.7 MG/DL (0.1-1.0)
[2023-01-10 04:53] LABS: CREATININE SERUM 0.52 MG/DL (0.60-1.30)
[2023-01-10] MEDS: POTASSIUM BICARB 20 MEQ (EFFER-K) TABLET PO SCH (05:30)
[2023-01-10] MEDS: THIAMINE 100 MG (VITAMIN B-1) TAB PO SCH (05:58)
[2023-01-10] MEDS: MULTIVIT W/MINERALS TAB (THERAGRAN M) PO SCH (05:58)
[2023-01-10] MEDS ORDERED: POTASSIUM BICARB 20 MEQ (EFFER-K) TABLET PO ONE (08:00)
[2023-01-10 08:10] VITALS: BP 116/61
[2023-01-10] MEDS: FOLIC ACID 1 MG TAB PO SCH (08:51)
[2023-01-10] MEDS: ENOXAPARIN 40 MG/0.4 ML (LOVENOX) SYR SC SCH (08:51)
[2023-01-10] MEDS: PHENobarbital 64.8 MG (1 GRAIN) TAb PO SCH (08:51)
[2023-01-10] MEDS: GABAPENTIN 300 MG (NEURONTIN) CAP PO SCH ×2 (08:51→21:49)
[2023-01-10] MEDS: FAMOTIDINE 20 MG (PEPCID) TABLET PO SCH (08:53)
--- NOTE | 2023-01-10 09:04 | Progress Note - Hospitalist ---
Subjective HPI/CC On Admission Date Seen by Provider: Jan 10, 2023 Time Seen by Provider: 09:00 Subjective/Events-last exam Patient doing a lot better Gaining strength Bowels are moving Catheter out now Objective Exam Vital Signs Vital Signs Date Time Temp Pulse Resp B/P (MAP) Pulse Ox O2 Delivery O2 Flow Rate FiO2 01/10/23 19:23 37.1 104 17 110/81 (91) 97 Room Air 01/10/23 07:16 0.00 01/08/23 08:08 21 Capillary Refill : Less Than 3 Seconds General Appearance: No Apparent Distress, WD/WN, Chronically ill Respiratory: Lungs Clear, Normal Breath Sounds Cardiovascular: Regular Rate, Rhythm Results/Procedures Lab Laboratory Tests 01/10/23 04:20 Patient resulted labs reviewed. Assessment/Plan Assessment and Plan Assess & Plan/Chief Complaint Severe alcohol withdrawal requiring intubation now extubated (1) Delirium tremens (2) Elevated liver enzymes (3) Alcohol withdrawal delirium (4) Hypokalemia (5) Hypomagnesemia (6) Hypophosphatemia (7) Thrombocytopenia (8) Leukopenia (9) Alcohol use disorder (10) Opioid use disorder (11) Hypertension (12) Bipolar disorder (13) History of hepatitis C (14) DVT prophylaxis Supportive care PT OT Critical Care Critically Ill Patient JEN SEXTON DO Jan 10, 2023 09:04
--- NOTE | 2023-01-10 11:19 | Physical Therapy Daily Note ---
PT Daily Note-Current Subjective Patient very agreeable to participate with therapy. More alert and able to increase activity on this date. Pain Section J - Health Conditions 1. Rarely or not at all 2. Occasionally 3. Frequently 4. Almost constantly 8. Unable to answer Pain Effect on Sleep: 2 Pain Interference with Therapy: 2 Pain Interference w/Day-to-Day: 2 Mental Status Patient Orientation: Normal For Age Transfers SCALE: Activities may be completed with or without assistive devices. 1-Nbqbeczajn-jzbdzxa completes the activity by him/herself with no assistance from a helper. 5-Set-up or Clean-up Assistance-helper sets up or cleans up; patient completes activity. [place] assists only prior to or following the activity. 4-Supervision or Touching Assistance-helper provides verbal cues and/or touching/steadying and/or contact guard assistance as patient completes activity. Assistance may be provided throughout the activity or intermittently. 3-Partial/Moderate Assistance-helper does LESS THAN HALF the effort. [place] lifts, holds or supports trunk or limbs, but provides less than half the effort. 2-Substantial/Maximal Assistance-helper does MORE THAN HALF the effort. [place] lifts or holds trunk or limbs and provides more than half the effort. 2-Bgktqteox-fzbqkq does ALL the effort. Patient does none of the effort to complete the activity. Or, the assistance of 2 or more helpers is required for the patient to complete the activity. If activity was not attempted, code reason: 7-Patient Refused. 9-Not Applicable-not attempted and the patient did not perform the activity before the current illness, exacerbation or injury. 10-Not Attempted due to Environmental Limitations-(lack of equipment, weather restraints, etc.). 88-Not Attempted due to Medical Conditions or Safety Concerns. Lying to Sitting/Side of Bed(Q: 6 Sit to Stand (QC): 4 Chair/Kgi-cy-Cnjrp Xfer(QC): 4 Gait Training Distance: 400' Walk 10 feet (QC): 3 Walk 50 ft with 2 Turns(QC): 3 Walk 150 ft (QC): 3 Gait Assistive Device: FWW multiple episodes of slight LOB with PT correct. Assessment Patient continues to be unsteady with gait sequence, however, improving. PT to continue to increase activity as tolerated by patient. Patient up in recliner with cushion for gluteal pressure relief. PT [facility] Goals Server Programmer Goals PT [facility] Goals Time Frame: Jan 29, 2023 Roll Left & Right (QC): 6 Sit to Lying (QC): 6 Lying-Sitting on Side/Bed(QC): 6 Sit to Stand (QC): 6 Chair/Vul-io-Kwzvi Xfer(QC): 6 Toilet Transfer (QC): 6 Walk 10 feet (QC): 6 Walk 50ft with 2 Turns (QC): 6 Walk 150 ft (QC): 6 PT Plan Treatment/Plan Treatment Plan: Continue Plan of Care Treatment Plan: Bed Mobility, Education, Functional Activity Colleen, Functional Strength, Gait, Safety, Therapeutic Exercise, Transfers Treatment Duration: Jan 29, 2023 Frequency: 6 times per week Estimated Hrs Per Day: .25 hour per day Patient and/or Family Agrees t: Yes Time Time In: 1045 Time Out: 1055 DATE: Jan 10, 2023 Total Billed Treatment Time: 10 Total Billed Treatment 1 visit GT 10 min MERYL ARAUJO PT Jan 10, 2023 11:19
--- NOTE | 2023-01-10 11:31 | Occupational Ther Daily Note ---
OT Current Status-Daily Note Subjective Up ambulating in halls, agreeable to continue therapy w/ OT Pain Numeric Pain Scale: 3 Location Body Site: Sacrum Comment: cushion applied to recliner/ pad over cushion, barrier cream is in room Mental Status/Objective Patient Orientation: Person, Place, Time, Situation ADL-Treatment Patient showered this am w/ nursing staff, head wrapped in towel, request assistance w/ getting water out of ears. Therapy Code Descriptions/Definitions Functional [place] Measure: 0=Not Assessed/NA 4=Minimal Assistance 1=Total Assistance 5=Supervision or Setup 2=Maximal Assistance 6=Modified [place] 3=Moderate Assistance 7=Complete IndependenceSCALE: Activities may be completed with or without assistive devices. 7-Iyyhyvzqmy-tzogpxq completes the activity by him/herself with no assistance from a helper. 5-Set-up or Clean-up Assistance-helper sets up or cleans up; patient completes activity. [place] assists only prior to or following the activity. 4-Supervision or Touching Assistance-helper provides verbal cues and/or touching/steadying and/or contact guard assistance as patient completes activity. Assistance may be provided throughout the activity or intermittently. 3-Partial/Moderate Assistance-helper does LESS THAN HALF the effort. [place] lifts, holds or supports trunk or limbs, but provides less than half the effort. 2-Substantial/Maximal Assistance-helper does MORE THAN HALF the effort. [place] lifts or holds trunk or limbs and provides more than half the effort. 8-Urwjdmgln-ysxxig does ALL the effort. Patient does none of the effort to complete the activity. Or, the assistance of 2 or more helpers is required for the patient to complete the activity. If activity was not attempted, code reason: 7-Patient Refused. 9-Not Applicable-not attempted and the patient did not perform the activity before the current illness, exacerbation or injury. 10-Not Attempted due to Environmental Limitations-(lack of equipment, weather restraints, etc.). 88-Not Attempted due to Medical Conditions or Safety Concerns. Eating (QC): 6 Oral Hygiene (QC): 5 (set up, sitting) Shower/Bathe Self (QC): 3 Upper Body Dressing (QC): 4 Lower Body Dressing (QC): 4 On/Off Footwear: 5 Toileting Hygiene (QC): 4 Toilet Transfer (QC): 4 Education OT Patient Education: Correct positioning, Exercise program, Modified ADL techniques, Progress toward Goal/Update tx plan, Purpose of tx/functional ac tivities, Reviewed precautions, Rehab process, Safety issues, Transfer techniques, Use of adapted equipment Teaching Recipient: Patient Teaching Methods: Demonstration, Discussion Response to Teaching: Verbalize Understanding, Reinforcement Needed OT Sandblaster Supervisor Goals [facility] Goals Eating (QC): 6 1=Demonstrate adherence to instructed precautions during ADL tasks. 2=Patient will verbalize/demonstrate understanding of assistive devices/modifications for ADL. 3=Patient will improve strength/tolerance for activity to enable patient to perform ADL's. OT Education/Plan Problem List/Assessment Assessment: Decreased Activ Tolerance, Decreased Safety Aware, Decreased UE Strength, Impaired Coordination, Impaired Funct Balance, Impaired Self-Care Skills Discharge Recommendations Plan/Recommendations: Continue POC Treatment Plan/Plan of Care Treatment,Training & Education: Yes Patient would benefit from OT for education, treatment and training to promote independence in ADL's, mobility, safety and/or upper extremity function for ADL's. Plan of Care: ADL Retraining, Functional Mobility, Group Exercise/Act as Ind, UE Funct Exercise/Act, UE Neuromus Re-Ed/Coord Treatment Duration: Jan 14, 2023 Frequency: 3 times per week (3-5 times per week) Estimated Hrs Per Day: .25 hour per day Agreement: Yes Rehab Potential: Guarded Time Start Time: 10:44 Stop Time: 11:00 DATE: Jan 10, 2023 Total Time Billed (hr/min): 16 Billed Treatment Time ADL 16 min BETSEY MELENDREZ OT Jan 10, 2023 11:31
--- NOTE | 2023-01-10 13:28 | Speech Therapy Daily Note ---
Speech Daily Progress Note Subjective Date Seen by Provider: Jan 10, 2023 Time Seen by Provider: 10:20 The patient was seated upright in bed, awake and alert, upon entrance to her room by the clinician. The patient greeted the clinician appropriately and was agreeable to participation in the skilled speech pathology treatment session. The clinician recommended a PU4 with thin liquids on 01/07/2023 for patient safety due to patient lethargy and reduced participation. On 01/08/2023, the patient was advanced by FE Ferreira to a regular consistency diet with thin liquids. Objective The patient was agreeable to limited P.O. trials of thin liquid (Sprite) via straw and two bites of a chris cracker (solid) stating she remains with a low appetite. Initially, the patient denied difficulty or the presence of s/s of suspected aspiration with her current diet consistency of regular with thin liquids stating, "Now I can have anything I want." Following a review of her safe swallowing precautions, the patient stated "The only time I have had any of that happen (coughing following the swallow) is when I am laying down trying to drink." The clinician encouraged the patient to be upright and alert for all P.O. intake. The patient did not display overt s/s of suspected aspiration with the limited P.O. trials of thin liquid via straw or solid on this date. However, due to the limited trials, the clinician is unable to complete a full assessment of appropriateness of a regular diet consistency and will defer to the physician's recommendation of the regular consistency diet with thin liquids entered by the RN on 01/08/2023. As the patient is receiving the highest diet consistency at this time, ST will sign off of services. If additional concerns arise, please re-consult speech pathology. Due to the patient's high level of impulsivity, intermittent supervision of P.O. intake should continue for the patient's safety as well as previously documented safe swallowing precautions. Assessment Assessment Current Status: Good Progress Treatment Plan Discontinue ST Speech Short Term Goals Short Term Goals Short Term Goals 1. The patient, staff, and family members will display safe swallowing precautions with 90% accuracy, independently. Time Frame-STG: Five Days. Speech Fdc Goals Fdc Goals 1. The patient will tolerate the least restrictive diet consistency without s/s of suspected aspiration. Time Frame: One Week. Speech-Plan Treatment Plan Speech Therapy Treatment Plan: Discontinue ST Treatment Duration: Jan 14, 2023 Frequency: 3 times per week Estimated Hrs Per Day: .25 hour per day Rehab Potential: Guarded Safety Risks/Education Teaching Recipient: Patient Teaching Methods: Discussion Response to Teaching: Reinforcement Needed Education Topics Provided: Safe Swallowing Precautions Time Speech Therapy Time In: 10:20 Speech Therapy Time Out: 10:30 DATE: Jan 10, 2023 Total Billed Time: 10 Billed Treatment Time 1, GABRIELA TRIPLETT Jan 10, 2023 13:28
[2023-01-10 14:35] VITALS: BP 116/61
[2023-01-10 15:55] VITALS: BP 117/74
[2023-01-10 19:23] VITALS: BP 110/81
[2023-01-10] MEDS: QUEtiapine 25 MG (SEROquel) TAB IMMEDIATE RELEASE PO SCH (21:49)
[2023-01-10 23:59] VITALS: BP 122/72
[2023-01-11 04:45] LABS: BASOPHILS # (AUTO) 0.1 10^3/uL (0.0-0.1); BASOPHILS % (AUTO) 1 % (0-10); EOSINOPHILS # (AUTO) 0.2 10^3/uL (0.0-0.3); EOSINOPHILS % (AUTO) 2 % (0-10); HEMATOCRIT 32 % (35-52); HEMOGLOBIN 10.8 g/dL (11.5-16.0); LYMPHOCYTES # (AUTO) 1.6 10^3/uL (1.0-4.0); LYMPHOCYTES % (AUTO) 19 % (12-44); MEAN CORPUSCULAR HEMOGLOBIN 35 pg (25-34); MEAN CORPUSCULAR HGB CONC 34 g/dL (32-36); MEAN CORPUSCULAR VOLUME 103 fL (80-99); MEAN PLATELET VOLUME 9.9 fL (9.0-12.2); MONOCYTES # (AUTO) 0.5 10^3/uL (0.0-1.0); MONOCYTES % (AUTO) 6 % (0-12); NEUTROPHILS % (AUTO) 73 % (42-75); PLATELET COUNT 568 10^3/uL (130-400); WHITE BLOOD COUNT 8.3 10^3/uL (4.3-11.0)
[2023-01-11 05:07] LABS: ALBUMIN 3.4 GM/DL (3.2-4.5); BILIRUBIN,TOTAL 0.7 MG/DL (0.1-1.0); CALCIUM 9.6 MG/DL (8.5-10.1); CREATININE SERUM 0.6 MG/DL (0.60-1.30); POTASSIUM 3.4 MMOL/L (3.6-5.0); TOTAL PROTEIN 7.3 GM/DL (6.4-8.2)
--- NOTE | 2023-01-11 05:34 | Progress Note - Hospitalist ---
Subjective HPI/CC On Admission Date Seen by Provider: Jan 11, 2023 Time Seen by Provider: 11:00 Subjective/Events-last exam No major issues DC tomorrow No pain Objective Exam Vital Signs Vital Signs Date Time Temp Pulse Resp B/P (MAP) Pulse Ox O2 Delivery O2 Flow Rate FiO2 01/11/23 15:34 36.6 94 19 135/78 (97) 97 Room Air 01/10/23 07:16 0.00 01/08/23 08:08 21 Capillary Refill : Less Than 3 Seconds General Appearance: No Apparent Distress, WD/WN, Chronically ill Respiratory: Lungs Clear Cardiovascular: Regular Rate, Rhythm Results/Procedures Lab Laboratory Tests 01/11/23 04:19 Patient resulted labs reviewed. Assessment/Plan Assessment and Plan Assess & Plan/Chief Complaint Severe alcohol withdrawal requiring intubation now extubated (1) Delirium tremens (2) Elevated liver enzymes (3) Alcohol withdrawal delirium (4) Hypokalemia (5) Hypomagnesemia (6) Hypophosphatemia (7) Thrombocytopenia (8) Leukopenia (9) Alcohol use disorder (10) Opioid use disorder (11) Hypertension (12) Bipolar disorder (13) History of hepatitis C (14) DVT prophylaxis Supportive care PT OT DC Wed Critical Care Critically Ill Patient JEN SEXTON DO Jan 11, 2023 05:34
[2023-01-11] MEDS: POTASSIUM BICARB 20 MEQ (EFFER-K) TABLET PO SCH (05:43)
[2023-01-11] MEDS: MULTIVIT W/MINERALS TAB (THERAGRAN M) PO SCH (05:46)
[2023-01-11] MEDS: THIAMINE 100 MG (VITAMIN B-1) TAB PO SCH (05:47)
[2023-01-11] MEDS ORDERED: POTASSIUM BICARB 20 MEQ (EFFER-K) TABLET PO ONE ×2 (06:00→10:00)
[2023-01-11 07:24] VITALS: BP 118/75
[2023-01-11] MEDS: ENOXAPARIN 40 MG/0.4 ML (LOVENOX) SYR SC SCH (09:22)
[2023-01-11] MEDS: FAMOTIDINE 20 MG (PEPCID) TABLET PO SCH (09:23)
[2023-01-11] MEDS: GABAPENTIN 300 MG (NEURONTIN) CAP PO SCH ×2 (09:23→20:20)
[2023-01-11] MEDS: FOLIC ACID 1 MG TAB PO SCH (09:23)
--- NOTE | 2023-01-11 10:34 | Physical Therapy Daily Note ---
PT Daily Note-Current Subjective Patient reports she is going home tomorrow. Agrees to therapy. Pain Section J - Health Conditions 1. Rarely or not at all 2. Occasionally 3. Frequently 4. Almost constantly 8. Unable to answer Pain Effect on Sleep: 1 Pain Interference with Therapy: 1 Pain Interference w/Day-to-Day: 1 Mental Status Patient Orientation: Normal For Age Transfers SCALE: Activities may be completed with or without assistive devices. 3-Ofubrkxjzo-lgoorqt completes the activity by him/herself with no assistance from a helper. 5-Set-up or Clean-up Assistance-helper sets up or cleans up; patient completes activity. [place] assists only prior to or following the activity. 4-Supervision or Touching Assistance-helper provides verbal cues and/or touching/steadying and/or contact guard assistance as patient completes activity. Assistance may be provided throughout the activity or intermittently. 3-Partial/Moderate Assistance-helper does LESS THAN HALF the effort. [place] lifts, holds or supports trunk or limbs, but provides less than half the effort. 2-Substantial/Maximal Assistance-helper does MORE THAN HALF the effort. [place] lifts or holds trunk or limbs and provides more than half the effort. 4-Ptzhremtj-dkgchd does ALL the effort. Patient does none of the effort to complete the activity. Or, the assistance of 2 or more helpers is required for the patient to complete the activity. If activity was not attempted, code reason: 7-Patient Refused. 9-Not Applicable-not attempted and the patient did not perform the activity before the current illness, exacerbation or injury. 10-Not Attempted due to Environmental Limitations-(lack of equipment, weather restraints, etc.). 88-Not Attempted due to Medical Conditions or Safety Concerns. Sit to Lying (QC): 6 Lying to Sitting/Side of Bed(Q: 6 Sit to Stand (QC): 4 Gait Training Distance: 400' Walk 10 feet (QC): 4 Walk 50 ft with 2 Turns(QC): 4 Walk 150 ft (QC): 4 Gait Assistive Device: FWW slightly unsteady with self correct Assessment Patient tolerated treatment well and returned to bed with needs met. PT will see patient for one more session tomorrow. PT Kitchen Clerk Goals Skilled Nursing Goals PT Kitchen Clerk Goals Time Frame: Jan 29, 2023 Roll Left & Right (QC): 6 Sit to Lying (QC): 6 Lying-Sitting on Side/Bed(QC): 6 Sit to Stand (QC): 6 Chair/Qnl-wx-Fkxuj Xfer(QC): 6 Toilet Transfer (QC): 6 Walk 10 feet (QC): 6 Walk 50ft with 2 Turns (QC): 6 Walk 150 ft (QC): 6 PT Plan Treatment/Plan Treatment Plan: Continue Plan of Care Treatment Plan: Bed Mobility, Education, Functional Activity Colleen, Functional Strength, Gait, Safety, Therapeutic Exercise, Transfers Treatment Duration: Jan 29, 2023 Frequency: 6 times per week Estimated Hrs Per Day: .25 hour per day Patient and/or Family Agrees t: Yes Time Time In: 937 Time Out: 946 DATE: Jan 11, 2023 Total Billed Treatment Time: 9 Total Billed Treatment 1 visit FA 9 min MERYL ARAUJO PT Jan 11, 2023 10:34
--- NOTE | 2023-01-11 10:47 | Occupational Ther Daily Note ---
OT Current Status-Daily Note Subjective Laying in bed and requires encouragement to participant Pain Numeric Pain Scale: 0-No Pain Mental Status/Objective Patient Orientation: Person, Place, Time, Situation ADL-Treatment Therapy Code Descriptions/Definitions Functional [place] Measure: 0=Not Assessed/NA 4=Minimal Assistance 1=Total Assistance 5=Supervision or Setup 2=Maximal Assistance 6=Modified [place] 3=Moderate Assistance 7=Complete IndependenceSCALE: Activities may be completed with or without assistive devices. 5-Lpjdfkqrrp-qdakltb completes the activity by him/herself with no assistance from a helper. 5-Set-up or Clean-up Assistance-helper sets up or cleans up; patient completes activity. [place] assists only prior to or following the activity. 4-Supervision or Touching Assistance-helper provides verbal cues and/or touching/steadying and/or contact guard assistance as patient completes acti vity. Assistance may be provided throughout the activity or intermittently. 3-Partial/Moderate Assistance-helper does LESS THAN HALF the effort. [place] lifts, holds or supports trunk or limbs, but provides less than half the effort. 2-Substantial/Maximal Assistance-helper does MORE THAN HALF the effort. [place] lifts or holds trunk or limbs and provides more than half the effort. 6-Yrhqxngbc-srbknr does ALL the effort. Patient does none of the effort to complete the activity. Or, the assistance of 2 or more helpers is required for the patient to complete the activity. If activity was not attempted, code reason: 7-Patient Refused. 9-Not Applicable-not attempted and the patient did not perform the activity before the current illness, exacerbation or injury. 10-Not Attempted due to Environmental Limitations-(lack of equipment, weather restraints, etc.). 88-Not Attempted due to Medical Conditions or Safety Concerns. Eating (QC): 6 (does not like the ENSURE, BOAST) Oral Hygiene (QC): 6 Shower/Bathe Self (QC): 5 Upper Body Dressing (QC): 6 Lower Body Dressing (QC): 6 On/Off Footwear: 6 Toileting Hygiene (QC): 6 Toilet Transfer (QC): 6 Education OT Patient Education: Correct positioning, Progress toward Goal/Update tx plan, Rehab process, Safety issues, Transfer techniques Teaching Recipient: Patient Response to Teaching: Return Demonstration OT Psych Np Goals Psych Np Goals Eating (QC): 6 1=Demonstrate adherence to instructed precautions during ADL tasks. 2=Patient will verbalize/demonstrate understanding of assistive devices/modifications for ADL. 3=Patient will improve strength/tolerance for activity to enable patient to perform ADL's. OT Education/Plan Discharge Recommendations Plan/Recommendations: Discharge/Goals Met Treatment Plan/Plan of Care Patient would benefit from OT for education, treatment and training to promote independence in ADL's, mobility, safety and/or upper extremity function for ADL's. Plan of Care: ADL Retraining, Functional Mobility, Group Exercise/Act as Ind, UE Funct Exercise/Act, UE Neuromus Re-Ed/Coord Treatment Duration: Jan 14, 2023 Frequency: 3 times per week (3-5 times per week) Estimated Hrs Per Day: .25 hour per day Agreement: Yes Rehab Potential: Guarded Time Start Time: 09:33 Stop Time: 09:45 DATE: Jan 11, 2023 Total Time Billed (hr/min): 12 Billed Treatment Time FA 12 BETSEY MELENDREZ OT Jan 11, 2023 10:47
[2023-01-11 15:34] VITALS: BP 135/78
[2023-01-11] MEDS: QUEtiapine 25 MG (SEROquel) TAB IMMEDIATE RELEASE PO SCH (20:20)
[2023-01-11 23:22] VITALS: BP 109/78
[2023-01-12 05:22] LABS: BASOPHILS # (AUTO) 0.1 10^3/uL (0.0-0.1); BASOPHILS % (AUTO) 1 % (0-10); EOSINOPHILS # (AUTO) 0.3 10^3/uL (0.0-0.3); EOSINOPHILS % (AUTO) 4 % (0-10); HEMATOCRIT 33 % (35-52); HEMOGLOBIN 10.9 g/dL (11.5-16.0); LYMPHOCYTES # (AUTO) 1.8 10^3/uL (1.0-4.0); LYMPHOCYTES % (AUTO) 23 % (12-44); MEAN CORPUSCULAR HEMOGLOBIN 35 pg (25-34); MEAN CORPUSCULAR HGB CONC 33 g/dL (32-36); MEAN CORPUSCULAR VOLUME 104 fL (80-99); MEAN PLATELET VOLUME 9.5 fL (9.0-12.2); MONOCYTES # (AUTO) 0.5 10^3/uL (0.0-1.0); MONOCYTES % (AUTO) 7 % (0-12); NEUTROPHILS # (AUTO) 5.1 10^3/uL (1.8-7.8); NEUTROPHILS % (AUTO) 65 % (42-75); PLATELET COUNT 549 10^3/uL (130-400); WHITE BLOOD COUNT 7.8 10^3/uL (4.3-11.0)
[2023-01-12 05:40] LABS: ALBUMIN 3.3 GM/DL (3.2-4.5); BILIRUBIN,TOTAL 0.6 MG/DL (0.1-1.0); CALCIUM 9.5 MG/DL (8.5-10.1); CREATININE SERUM 0.59 MG/DL (0.60-1.30); TOTAL PROTEIN 7.2 GM/DL (6.4-8.2)
[2023-01-12] MEDS: POTASSIUM BICARB 20 MEQ (EFFER-K) TABLET PO SCH (05:44)
[2023-01-12] MEDS: MULTIVIT W/MINERALS TAB (THERAGRAN M) PO SCH (06:15)
[2023-01-12] MEDS: THIAMINE 100 MG (VITAMIN B-1) TAB PO SCH (06:15)
[2023-01-12 07:23] VITALS: BP 114/74
[2023-01-12] MEDS: ENOXAPARIN 40 MG/0.4 ML (LOVENOX) SYR SC SCH (08:40)
[2023-01-12] MEDS: FOLIC ACID 1 MG TAB PO SCH (08:40)
[2023-01-12] MEDS: GABAPENTIN 300 MG (NEURONTIN) CAP PO SCH (08:40)
[2023-01-12] MEDS: FAMOTIDINE 20 MG (PEPCID) TABLET PO SCH (08:40)
[2023-01-12] MEDS ORDERED: QUET25TA35 PO (10:55)
[2023-01-12] MEDS ORDERED: MULT-1137 PO (10:55)
[2023-01-12] MEDS ORDERED: MTP25TSR PO (10:55)
[2023-01-12] MEDS ORDERED: GABA300C PO (10:55)
[2023-01-12] MEDS ORDERED: OXC5T PO (10:55)
--- NOTE | 2023-01-12 10:57 | D/C HH Face to Face Order ---
D/C Face to Face Orders Reconcile Patient Problems Problems Reviewed?: Yes Instructions for Patient [facility], Patient Instructions/FollowUp: PCP 1 week Physician to follow Patient: PCP [facility] Discharge Diet for Home: No Restrictions Patient Problems: Respiratory failure Patient Data-Allergies,Ht & Wt Patient Allergies: Coded Allergies: No Known Drug Allergies (Verified , 01/07/09) Home Health Need/Face to Face Date of Face to Face: Jan 12, 2023 Clinical Findings: Generalized weakness and fatigue, Muscle weakness I have seen Pt [id number]: Yes Discharged To: Home Diagnosis/Conditions: Debility Patient is Homebound due to: Luis fall risk due to instabilty, Muscle weakness Homebound Status Due to the above stated illness, injury or surgical procedure (medical condition or diagnosis) and associated clinical findings, the patient is homebound because of his/her inability to leave home except with aid of a supportive device and/or person AND leaving the home requires a considerable and taxing effort or is medically contraindicated. Pt req the following assistanc: [facility] Nursing Orders Home Health Services Order: Nursing Services, [employer]-Evaluate & Treat, Physical Therapy-Evaluate & Treat Home Health Infusion Therapy Line Start Date: Dec 24, 2022 Certify Stmt I certify that this patient is under my care and that I, a nurse practitioner or a physician; a digital sales assistant working with me, had a face to face encounter that - meets the physician face to face encounter requirements with this patient as dated. JEN SEXTON DO Jan 12, 2023 10:57
--- NOTE | 2023-01-12 10:57 | Discharge Summary ---
Discharge Summary Hospital Course Was the Problem List Reviewed?: Yes Problems/Dx: (1) Alcohol withdrawal delirium Status: Acute (2) Alcohol use disorder Status: Chronic (3) Bipolar disorder Status: Chronic (4) Anxiety Status: Chronic (5) Opioid use disorder Status: Chronic (6) Hypophosphatemia Status: Acute (7) History of hepatitis C Status: Chronic (8) Elevated liver enzymes Status: Chronic (9) Leukopenia Status: Resolved (10) Thrombocytopenia Status: Resolved Hospital Course Date of Admission: Dec 23, 2022 at 09:00 Admission Diagnosis : Family Physician/Provider: [facility] Date of Discharge: 01/12/23 Discharge Diagnosis: [ ] Hospital Course: Lengthy hospital course most of it was intubated in the ICU after complicated alcohol withdrawal with delirium requiring intubation. Pneumonia was treated with antibiotics. Patient ultimately was extubated was very weak and received PT and OT and was deemed stable for discharge getting back to her baseline. Labs and Pending Lab Test: Laboratory Tests 01/12/23 05:09: White Blood Count 7.8, Red Blood Count 3.16L, Hemoglobin 10.9L, Hematocrit 33L, Mean Corpuscular Volume 104H, Mean Corpuscular Hemoglobin 35H, Mean Corpuscular Hemoglobin Concent 33, Red Cell Distribution Width 14.0, Platelet Count 549H, Mean Platelet Volume 9.5, Immature Granulocyte % (Auto) 1, Neutrophils (%) (Auto) 65, Lymphocytes (%) (Auto) 23, Monocytes (%) (Auto) 7, Eosinophils (%) (Auto) 4, Basophils (%) (Auto) 1, Neutrophils # (Auto) 5.1, Lymphocytes # (Auto) 1.8, Monocytes # (Auto) 0.5, Eosinophils # (Auto) 0.3, Basophils # (Auto) 0.1, Immature Granulocyte # (Auto) 0.1, Sodium Level 136, Potassium Level 4.0, Chloride Level 100, Carbon Dioxide Level 25, Anion Gap 11, Blood Urea Nitrogen 6L, Creatinine 0.59L, Estimat Glomerular Filtration Rate 116, BUN/Creatinine Ratio 10, Glucose Level 91, Calcium Level 9.5, Corrected Calcium 10.1, Total Bilirubin 0.6, Aspartate Amino Transf (AST/SGOT) 71H, Alanine Aminotransferase (ALT/SGPT) 97H, Alkaline Phosphatase 145H, Total Protein 7.2, Albumin 3.3 Microbiology 01/06/23 Blood Culture - Final, Complete No growth 12/30/22 Gram Stain - Final, Complete 12/30/22 Sputum Culture - Final, Complete Staphylococcus aureus Home Meds Active Neurontin (Gabapentin) 300 Mg Capsule 300 Mg PO BID Oxyir Tablet (Oxycodone HCl) 5 Mg Tab 5 Mg PO Q4H PRN Tab-A-Tata Multivit with Iron (Multivitamin/Iron/Folic Acid) 18 Mg Iron-400 Mcg Tablet 1 Ea PO DAILY@0700 Quetiapine Fumarate 25 Mg Tablet 25 Mg PO HS Metoprolol Succinate 25 Mg Tab.er.24h 25 Mg PO DAILY Reported Buprenorphin-Naloxon 8-2 mg Sl (Buprenorphine HCl/Naloxone HCl) 8 Mg-2 Mg Tab.subl 1 Each SL TID Hydrochlorothiazide 25 Mg Tablet 25 Mg PO DAILY Amlodipine Besylate 10 Mg Tablet 10 Mg PO DAILY Assessment/Pt Instructions PCP at [facility] Discharge Planning: <30 minutes discharge planning Discharge Physical Examination Vital Signs Vital Signs Date Time Temp Pulse Resp B/P (MAP) Pulse Ox O2 Delivery O2 Flow Rate FiO2 01/12/23 08:00 Room Air 01/12/23 07:23 36.5 93 18 114/74 (87) 93 01/10/23 07:16 0.00 01/08/23 08:08 21 General Appearance: No Apparent Distress, WD/WN, Chronically ill Allergies: Coded Allergies: No Known Drug Allergies (Verified , 01/07/09) Discharge Summary Date of Admission Dec 23, 2022 at 09:00 Date of Discharge Discharge Date: Jan 12, 2023 Discharge Diagnosis Severe alcohol withdrawal requiring intubation now extubated (1) Delirium tremens (2) Elevated liver enzymes (3) Alcohol withdrawal delirium (4) Hypokalemia (5) Hypomagnesemia (6) Hypophosphatemia (7) Thrombocytopenia (8) Leukopenia (9) Alcohol use disorder (10) Opioid use disorder (11) Hypertension (12) Bipolar disorder (13) History of hepatitis C (14) DVT prophylaxis Supportive care PT OT DC Bety JEN SEXTON Jan 12, 2023 10:57
[2023-01-12 15:45] VITALS: BP 107/58
[2023-01-12 16:21] VITALS: BP 107/58
== END 2023-01-12 16:23 | disposition home health service (06) | DRG 896 ==
LOC: EDUNIT# 03:42 → ER 03:44 → ICU 09:00 → 4TH 01-07 14:29
PROVIDERS: ADMIT Family Medicine; ATTEND Internal Medicine
PROC: 5A1955Z Respiratory Ventilation, Greater than 96 Consecutive Hours (ICD-10-PCS; principal; 2022-12-23)
PROC: 0BH17EZ Insertion of Endotracheal Airway into Trachea, Via Natural or Artificial Opening (ICD-10-PCS; 2022-12-23)
PROC: 5A1945Z Respiratory Ventilation, 24-96 Consecutive Hours (ICD-10-PCS; 2023-01-02)
PROC: 5A0945A Assistance with Respiratory Ventilation, 24-96 Consecutive Hours, High Flow/Velocity Cannula (ICD-10-PCS; 2023-01-05)
DX: F10.231 Alcohol dependence with withdrawal delirium (principal); J18.9 Pneumonia, unspecified organism; J96.00 Acute respiratory failure, unspecified whether with hypoxia or hypercapnia; E87.6 Hypokalemia; E83.42 Hypomagnesemia; E83.39 Other disorders of phosphorus metabolism; D69.6 Thrombocytopenia, unspecified; G40.909 Epilepsy, unspecified, not intractable, without status epilepticus; F17.210 Nicotine dependence, cigarettes, uncomplicated; F41.9 Anxiety disorder, unspecified; S60.512A Abrasion of left hand, initial encounter; F11.90 Opioid use, unspecified, uncomplicated; I10 Essential (primary) hypertension; F31.9 Bipolar disorder, unspecified; B18.2 Chronic viral hepatitis C; R74.01 Elevation of levels of liver transaminase levels; D64.9 Anemia, unspecified; Y90.0 Blood alcohol level of less than 20 mg/100 ml; Z79.899 Other long term (current) drug therapy; W19.XXXA Unspecified fall, initial encounter; Z20.822 Contact with and (suspected) exposure to COVID-19
CPT/HCPCS: 31500; 36415; 36569; 36600; 51702; 70450; 71045; 71275; 74018; 76705; 76937; 80048; 80053; 80074; 80076; 80306; 80320; 80329; 81000; 82140; 82150; 82550; 82728; 82805; 82947; 83540; 83550; 83605; 83735; 84075; 84100; 84478; 84484; 85007; 85014; 85018; 85025; 85027; 85379; 85610; 85730; 86850; 86900; 86901; 86920; 87040; 87070; 87077; 87081; 87186; 87205; 87636; 93005; 93041; 94003; 94640; 94664; 94668; 94760; 94799; 96361; 96365; 96366; 96367; 96368; 96372; 96375